=== PATIENT | female | born 1985 | race Caucasian/White ===

== ENCOUNTER 2019-03-21 14:27 | Outpatient (CLI) | payer OTHER, MEDICAID, SELFPAY ==
--- NOTE | ~2019-03-21 | US_ITS ---
EXAMINATION: US carotid duplex BI DATE: 03/21/2019 15:07 INDICATION: Transient right eye visual loss. TECHNIQUE: Grayscale, color Doppler, and pulsed Doppler images of the cervical carotid arteries were obtained. The degree of vessel stenosis is placed in one of the following categories: normal, <50%, 5 0-69%, >=70% but less than near-occlusion, near-occlusion, or total occlusion. Note that percent sten osis relative to normal distal artery lumen diameter is indirectly measured from velocity measurement s as described by Darrell, et al. Radiology 2003; 229:340-346. COMPARISON: None. FINDINGS: RIGHT: The right common carotid artery (CCA) peak systolic velocity (PSV) is 137 cm/s. The right internal ca rotid artery (ICA) PSV is 58 cm/s. The right ICA end-diastolic velocity (EDV) is 22 cm/s. The right I CA/CCA PSV ratio is 0.4. Grayscale and color Doppler images yield an estimate of 0% diameter reductio n from plaque in the ICA. There is antegrade flow in the right vertebral artery. LEFT: The left CCA PSV is 135 cm/s. The left ICA PSV is 87 cm/s. The left ICA EDV is 30 cm/s. The left ICA/ CCA PSV ratio is 0.6. Grayscale and color Doppler images yield an estimate of 0% diameter reduction f rom plaque in the ICA. There is antegrade flow in the left vertebral artery. IMPRESSION: 1. Normal internal carotid arteries. Reviewed, dictated and finalized at location A. TAL DIRECTOR
== END 2019-03-21 14:28 | disposition home or self-care (01) ==
LOC: ANHIMG 14:42
PROVIDERS: PCP Family Medicine
DX: H53.121 Transient visual loss, right eye (principal)
CPT/HCPCS: 93880

== ENCOUNTER 2019-04-01 08:46 | Outpatient (CLI) | payer OTHER, MEDICAID, SELFPAY ==
--- NOTE | ~2019-04-01 | DEXA_ITS ---
Bone Density Report Name: Sangeeta Mcknight Age: 33 Sex: Female Ethnicity: White Date of : 1985 Indication: postmenopausal; hysterectomy; Referring Provider: Simeon Keith Study: Bone densitometry was performed. Exam Date: April 01, 2019 Accession number: [id number] Bone Density: Region BMD T-score Z-score Classification AP Spine (L1-L4) 0.844 -1.8 -1.8 Osteopenia Femoral Neck (Left) 0.696 -1.4 -1.2 Osteopenia Total Hip (Left) 0.968 0.2 0.3 Normal Total Hip Bilateral Avg 0.976 0.3 0.4 Normal Femoral Neck (Right) 0.708 -1.3 -1.1 Osteopenia Total Hip (Right) 0.983 0.3 0.4 Normal World Health Organization criteria for BMD impression classify patients as: Normal (T-score at or above -1.0), Osteopenia (T-score between -1.0 and -2.5), or Osteoporosis (T-score at or below -2.5). 10-year Fracture Risk(1): Major Osteoporotic Fracture 2.1% Hip Fracture 0.2% Reported Risk Factors: [place] (), Neck BMD=0.696, BMI=25.4 Input outside FRAX(R) limits. Adjusted to:Age=40 (1) FRAX(R) Version 3.08. Fracture probability calculated for an untreated patient. Fracture probability may be lower if the patient has received treatment. Clinical Information Provided by Patient: Has used the following medications: HRT (i.e. estrogen/hormone therapy) Has the following medical conditions: Hysterectomy Menopause Age: 31 Onset of menses at age 9 Number of children 6 Impression: The patient has low bone mass, based on the Total Spine T-score. The patient has an estimated ten-year risk of hip fracture of 0.2% and an estimated ten-year risk of major fracture of 2.1%, based on the WHO FRAX algorithm. Discussion: BONE DENSITY IS LOW AT ONE OR MORE SKELETAL SITES. This patient's lowest T-score is low at one or more skeletal sites. It meets the World Health Organization's (WHO) criteria for ?low bone mass? (T-score between -1.0 and -2.5). The patient's 10-year risk of fracture as calculated by FRAX is less than the threshold where pharmacological therapy is recommended by the National Osteoporosis Foundation (NOF). However, all treatment decisions require clinical judgment and consideration of individual patient factors, including patient preferences, comorbidities, previous drug use, risk factors not captured in the FRAX model (e.g., frailty, falls, vitamin D deficiency, increased bone turnover, interval significant decline in bone density) and possible under or overestimation of fracture risk by FRAX. The patient should follow a healthful lifestyle (good nutrition with adequate calcium and vitamin D, and appropriate weight-bearing exercise). Follow-Up: Consider repeating this study in 2 to 3 years to reassess this patient's status, or sooner if there is some new clinical indication. Reported by: KASSIDY on 04/01/19
== END 2019-04-01 08:47 | disposition home or self-care (01) ==
LOC: ANHIMG 08:51
PROVIDERS: Visit Provider Obstetrics & Gynecology
DX: L89.40 Pressure ulcer of contiguous site of back, buttock and hip, unspecified stage (principal); M85.88 Other specified disorders of bone density and structure, other site; M85.852 Other specified disorders of bone density and structure, left thigh; M85.851 Other specified disorders of bone density and structure, right thigh
CPT/HCPCS: 77080

== ENCOUNTER 2019-04-11 09:10 | Outpatient (CLI) | payer OTHER, MEDICAID, SELFPAY ==
--- NOTE | 2019-04-11 10:11 | EST_ITS ---
Patient Info Name: Sangeeta Mcknight Age: 33 years : 1985 Gender: Female Ht: 60 in Wt: 127 lbs BSA: 1.57 m2 HR: 67 bpm BP: 105 / 66 mmHg Heart Rhythm: Sinus Rhythm Technical Quality: Good Exam Date: 04/11/2019 10:24 AM Exam Location: [facility] Stress Patient Status: Outpatient Admit Date: 04/11/2019 Staff Ordering Physician: John Leblanc DO Attending Provider: John Leblanc DO Exercise Technologist: Demetris Ibarra RDCS Exam Type: CA stress test treadmill Study Info Indications R07.9 - Chest pain, unspecified R06.02 - Shortness of breath A treadmill exercise stress test was performed. History/Risk Factors Chest pain, SOB, MVP. Summary 1. 1. Negative Jose Guadalupe exercise stress test for ischemic ST changes by ECG criteria.\E\. 2. 2. Good functional capacity, achieving 10 METs of workload. 3. 3. Appropriate HR response to exercise. 4. 4. Appropriate HR recovery at 1 minute post exercise. 5. 5. No imaging with stress tesing. 6. 6. Patient informed of the above results. Protocol: Jose [facility]adalupe Stress ECG Details Stage: REST Duration (min): 0 min : 16 sec Speed (mph): 0.0 Grade (%): 0 HR (bpm): 67 SBP (mmHg): --- DBP (mmHg): --- METS: --- Stage: REST Duration (min): 4 min : 58 sec Speed (mph): 0.0 Grade (%): 0 HR (bpm): 73 SBP (mmHg): 105 DBP (mmHg): 66 METS: --- Stage: STAGE 1 Duration (min): 1 min : 0 sec Speed (mph): 1.7 Grade (%): 10 HR (bpm): 106 SBP (mmHg): 105 DBP (mmHg): 66 METS: --- Stage: STAGE 1 Duration (min): 2 min : 0 sec Speed (mph): 1.7 Grade (%): 10 HR (bpm): 106 SBP (mmHg): 105 DBP (mmHg): 66 METS: --- Stage: STAGE 1 Duration (min): 3 min : 0 sec Speed (mph): 1.7 Grade (%): 10 HR (bpm): 117 SBP (mmHg): 139 DBP (mmHg): 48 METS: --- Stage: STAGE 2 Duration (min): 1 min : 0 sec Speed (mph): 2.5 Grade (%): 12 HR (bpm): 128 SBP (mmHg): 139 DBP (mmHg): 48 METS: --- Stage: STAGE 2 Duration (min): 2 min : 0 sec Speed (mph): 2.5 Grade (%): 12 HR (bpm): 141 SBP (mmHg): 147 DBP (mmHg): 47 METS: --- Stage: STAGE 2 Duration (min): 3 min : 0 sec Speed (mph): 2.5 Grade (%): 12 HR (bpm): 150 SBP (mmHg): 147 DBP (mmHg): 47 METS: --- Stage: STAGE 3 Duration (min): 1 min : 0 sec Speed (mph): 3.4 Grade (%): 14 HR (bpm): 168 SBP (mmHg): 157 DBP (mmHg): 54 METS: --- Stage: STAGE 3 Duration (min): 2 min : 0 sec Speed (mph): 3.4 Grade (%): 14 HR (bpm): 176 SBP (mmHg): 157 DBP (mmHg): 54 METS: --- Stage: STAGE 3 Duration (min): 2 min : 0 sec Speed (mph): 3.4 Grade (%): 14 HR (bpm): 176 SBP (mmHg): 157 DBP (mmHg): 54 METS: --- Stage: RECOVERY Duration (min): 0 min : 59 sec Speed (mph): 0.0 Grade (%): 0 HR (bpm): 145
== END 2019-04-11 09:11 | disposition home or self-care (01) ==
PROVIDERS: Visit Provider Internal Medicine Cardiovascular Disease
DX: R07.9 Chest pain, unspecified (principal)
CPT/HCPCS: 93017

== ENCOUNTER 2019-10-11 13:05 | Outpatient (CLI) | payer OTHER, MEDICAID, SELFPAY ==
--- NOTE | 2019-10-16 17:52 | SLEEP_ITS ---
Home Sleep Test DATE OF STUDY: 10/11/2019 ORDERING PHYSICIAN: John Leblanc D.O. REASON FOR THE STUDY: Hypersomnia. HISTORY: This patient is a 34-year-old woman, 5 feet tall, weighing 134 pounds with a body mass index of 26.1. She has a history of feeling tired and exhausted all day. She wakes up feeling tired. She has had an increase in headaches and migraines. She has had worsening mood with increased temper and decreased patience. She has increased forgetfulness. She is not sleeping through the night. She has tried amitriptyline 10 mg and it was increased to 25 mg. She has also tried essential oils and tea to help fall asleep. She has difficulty falling asleep, she wakes up frequently at night and has excessive daytime sleepiness. She also has difficulty waking up. She frequently snores and it is only occasionally loud enough that others complain about it. She rarely awakens at night with heartburn, belching, or coughing. She rarely awakens at night feeling short of breath. She frequently has trouble sleeping when she has a cold. She rarely wakes up gasping for breath at night. She occasionally has breathing problems at night observed by others. She frequently sweats excessively at night and frequently notices her heart pounding or beating irregularly at night. She does not fall asleep during the day or fall asleep involuntarily. She rarely falls asleep while driving. She does not fall asleep during physical effort. She does indicate that she rarely falls asleep with crying. She occasionally has loss of muscle tone with strong emotion. She frequently has daytime difficulty due to excessive sleepiness. 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 She indicates increased stress during the pandemic with the children being at home. She rarely feels paralyzed on waking or falling asleep. She frequently experiences vivid dreamlike scenes upon awakening or falling asleep. She is never afraid to go to sleep. She occasionally has nightmares, frequently remembers her dreams, frequently has racing thoughts. She occasionally feels sad, depressed, anxious, and occasionally has muscular tension. She frequently notices parts of her body jerking, frequently kicks at night. She occasionally has achy feelings in her legs, occasionally has leg pain at night and occasionally has morning jaw pain. She frequently grinds her teeth during sleep. She frequently is bothered by pain during the day. She occasionally is awakened by pain at night, frequently wakes up feeling stiff in the morning with sore achy muscles and pain in the neck and spine. She has headaches, dizziness, fatigue, panic, memory problems, concentration difficulties, and is unable to relax. She goes to bed between 09:00 and 11:00 p.m., taking 45 minutes to fall asleep, typically waking 3 times at night for 5 to 15 minutes. She tosses and turns, trying to find a comfortable position. She awakens in the morning at 07:00 a.m. Weekend schedule reveals that she may stay up an hour later, but wakes at the same time. She lives at home with her and 6 children, age 12 and under. She does not take naps. A short nap is not refreshing. She is drowsy in the morning for 3 hours or longer. She feels better in the evening. MEDICAL COMORBIDITIES: Mitral valve prolapse with palpitations, migraine headaches, osteopenia, menopause symptoms, gastroesophageal reflux disease. MEDICATIONS: 1. Metoprolol 25 mg a day. 2. Amitriptyline 25 mg at night. 3. Vitamin D3 2000 units daily. 4. Calcium 600 mg twice a day. 5. Vitamin B12 5000 mcg daily. 6. Omeprazole 40 mg twice a day. 7. Estradiol 2 mg daily. 8. Premarin 1.25 mg daily. HABITS: Quit tobacco 5 years ago. Caffeine, 2 to 3 servings a day. No alcohol or recreational
== END 2019-10-11 13:06 | disposition home or self-care (01) ==
LOC: ANHCSM 13:06
PROVIDERS: Visit Provider Internal Medicine Cardiovascular Disease
DX: G47.10 Hypersomnia, unspecified (principal)
CPT/HCPCS: 95806

== ENCOUNTER 2019-11-10 18:34 | Emergency (ER) | payer OTHER, MEDICAID, SELFPAY ==
--- NOTE | ~2019-11-10 | XR_ITS ---
EXAMINATION: XR foot LT min 3V DATE: 11/10/2019 18:53 INDICATION: Left foot pain. TECHNIQUE: 4 views of left foot were obtained. COMPARISON: Left foot radiographs 10/16/2018 FINDINGS: Bone alignment is normal. No fracture. 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 IMPRESSION: 1. No fracture. Reviewed, dictated and finalized at location A. IMPRESSION: 1. No fracture.
[2019-11-10 18:41] VITALS: BP 125/58; PULSE 76; RESP 16; TEMP 36.6; O2SAT 100
--- NOTE | 2019-11-10 18:45 | ED.LOWEXIN ---
HPI - Extremity Injury (Lower) General Chief Complaint: Extremity Injury, Lower Stated Complaint: left foot and ankle pain Time Seen by Provider: 11/10/19 18:45 Source: patient and RN notes reviewed History of Present Illness HPI Narrative: Patient is a 34-year-old female who presents to the urgent care with complaints of left foot/ankle and toe pain. Patient states that she fell on her floor Wednesday, and a water puddle. Patient states that she has been ambulating on the foot. States that she has been elevating, using ice and heat and taking ibuprofen and Tylenol as needed. Patient denies any other acute complaints or injuries from the fall. No acute distress noted. Patient aware of the plan of care. Some parts of this dictation were generated by voice recognition software and may contain typographical and/or grammatical inaccuracies. Related Data Home Medications Medication Instructions Recorded Confirmed cholecalciferol (vitamin D3) 50 50 mcg PO DAILY 07/05/19 07/05/19 mcg (2,000 unit) tablet estradiol 2 mg tablet 2 mg PO DAILY 07/05/19 07/05/19 omeprazole 40 mg capsule,delayed 40 mg PO BID 07/05/19 07/05/19 release amitriptyline 25 mg PO HS 11/10/19 11/10/19 conjugated estrogens [Premarin] 1.25 mg PO DAILY 11/10/19 11/10/19 metoprolol succinate 25 mg PO DAILY 11/10/19 11/10/19 Allergies Allergy/AdvReac Type Severity Reaction Status Date / Time vancomycin Allergy Severe REDMANS Verified 11/10/19 18:48 SYNDROME iodine Allergy Mild Hives / Verified 11/10/19 18:48 Red Face ioversol Allergy Unknown Unknown Verified 11/10/19 18:48 Penicillins Allergy Unknown Stopped Verified 11/10/19 18:48 Breathing iohexol Allergy Itching Verified 11/10/19 18:49 [From contrast - CT, X-RAY] acetaminophen AdvReac Mild STATES Verified 11/10/19 18:48 TYLENOL RAISES LIVER ENZYMES WAS TOLD NOT TO TAKE Review of Systems Review of Systems: Narrative: CONSTITUTIONAL: Denies fever, chills, or sweats. EYES: Denies visual changes, redness, or discharge. ENT: Denies rhinorrhea, congestion, sore throat, or otalgia. CARDIOVASCULAR: Denies chest pain, palpitations, or edema. RESPIRATORY: Denies cough or dyspnea. GASTROINTESTINAL: Denies abdominal pain, nausea, vomiting, or diarrhea. GENITOURINARY: Denies dysuria or hematuria. SKIN: Denies rash or itching. MUSCULOSKELETAL: Reports of left foot, ankle and toe pain due to fall NEUROLOGIC: Denies headache, numbness, or weakness. All other systems reviewed are negative, except as documented in HPI. [facility] Past Medical History Medical History (Updated 11/10/19 @ 19:10 by DIPTI Nino) Heart palpitations Mitral valve prolapse Family History Family History (System 07/03/19 @ 13:04 by Linda Varela) Father Family history of mental disorder Depression Family history of kidney disease Family history of human immunodeficiency virus infection Mother Family history of alcoholism Social History Social History (System 07/03/19 @ 13:04 by Linda Varela) Smoking status: Former smoker Alcohol intake: current Comments At the time of my signature, I reviewed and agree with the nursing past medical, surgical, social, and family history. There is no relevant family history pertinent to the patient complaint. Exam Narrative: Exam Narrative: GENERAL: This is a well-nourished, well-developed patient, in no apparent distress. HEAD: normocephalic, atraumatic. EYES: PERRL. Sclera clear/white. Vision is grossly intact. EARS: External ears normal NOSE: External nose normal with no obvious nasal discharge, nares without redness, no rhinorrhea. THROAT: Mucous membranes moist NECK: Neck supple, SKIN: warm, intact with no suspicious lesions or rash, good texture and turgor. NEURO: awake, alert, and oriented to person, place and time. There were no obvious focal neurologic abnormalities. EXTREMITIES: No obviou
--- NOTE | 2019-11-10 19:10 | PC.NURSE ---
PT DECLINED WHEELCHAIR TO ROOM AND RADIOLOGY
== END 2019-11-10 19:12 | disposition home or self-care (01) ==
PROVIDERS: Emergency Provider Nurse Practitioner Family
DX: M79.672 Pain in left foot (principal); I34.1 Nonrheumatic mitral (valve) prolapse
CPT/HCPCS: 73630; 99213; G0463

== ENCOUNTER 2020-02-06 02:40 | Outpatient (CLI) | payer OTHER, MEDICAID, SELFPAY ==
[2020-02-06 22:42] LABS: SARS-CoV-2 RNA PCR Negative
== END 2020-02-06 02:41 | disposition home or self-care (01) ==
LOC: ANHCOVIDDT 02:40
PROVIDERS: Visit Provider Internal Medicine Critical Care Medicine
DX: Z20.828 Contact with and (suspected) exposure to other viral communicable diseases (principal)
CPT/HCPCS: 87635; C9803; U0003

== ENCOUNTER 2020-02-08 08:27 | Outpatient (CLI) | payer OTHER, MEDICAID, SELFPAY ==
--- NOTE | 2020-03-29 15:57 | WPDSLEEPSTUD ---
Sleep Study Date of Study: 02/08/20 Ordering Provider: Vahid Yoder MD Interpreting Physician: Alicia Avendano MD Sleep Study Type: Polysomnogram Height: 1.52 m Weight: 60.781 kg Body Mass Index: 26.2 Neck Circumference: 30.5 cm [place]: 10 Reason for Sleep Study fatigue and hypersomnolence, negative home sleep test Oct 16, 2019 with AHI 0.7, lowest sat 91% Sleep History Sangeeta Mcknight is a 34 year old female with a history of feeling tired and exhausted all day. She wakes up feeling tired. She has had an increase in headaches and migraines. She has had worsening mood with increased temper and decreased patience. She has increased forgetfulness. She is not sleeping through the night. She has tried amitriptyline 10 mg and it was increased to 25 mg. She has also tried essential oils and tea to help fall asleep. She has difficulty falling asleep, she wakes up frequently at night and has excessive daytime sleepiness. She also has difficulty waking up. She frequently snores and it is only occasionally loud enough that others complain about it. She rarely awakens at night with heartburn, belching, or coughing. She rarely awakens at night feeling short of breath. She frequently has trouble sleeping when she has a cold. She rarely wakes up gasping for breath at night. She occasionally has breathing problems at night observed by others. She frequently sweats excessively at night and frequently notices her heart pounding or beating irregularly at night. She does not fall asleep during the day or fall asleep involuntarily. She rarely falls asleep while driving. She does not fall asleep during physical effort. She does indicate that she rarely falls asleep with crying. She occasionally has loss of muscle tone with strong emotion. She frequently has daytime difficulty due to excessive sleepiness. 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 She indicates increased stress during the pandemic with the children being at home. She rarely feels paralyzed on waking or falling asleep. She frequently experiences vivid dreamlike scenes upon awakening or falling asleep. She is never afraid to go to sleep. She occasionally has nightmares, frequently remembers her dreams, frequently has racing thoughts. She occasionally feels sad, depressed, anxious, and occasionally has muscular tension. She frequently notices parts of her body jerking, frequently kicks at night. She occasionally has achy feelings in her legs, occasionally has leg pain at night and occasionally has morning jaw pain. She frequently grinds her teeth during sleep. She frequently is bothered by pain during the day. She occasionally is awakened by pain at night, frequently wakes up feeling stiff in the morning with sore achy muscles and pain in the neck and spine. She has headaches, dizziness, fatigue, panic, memory problems, concentration difficulties, and is unable to relax. She goes to bed between 9:00 and 11:00 p.m., taking 45 minutes to fall asleep, typically waking 3 times at night for 5 to 15 minutes. She tosses and turns, trying to find a comfortable position. She awakens in the morning at 7:00 a.m. not feeling refreshed. Weekend schedule reveals that she may stay up an hour later, but wakes at the same time. She lives at home with her and 6 children, age 12 and under. She does not take naps. A short nap is not refreshing. She is drowsy in the morning for 3 hours or longer. She feels better in the evening. HABITS: Quit tobacco 5 years ago. Caffeine, 2 to 3 servings a day. No alcohol or recreational drugs. PMH: Mitral valve prolapse with palpitations, migraine headaches, osteopenia, menopause symptoms, gastroesophageal reflux disease. [facility] Past Medical History Medical History (Updated 03/29/20 @ 16:39 by Alicia Avendano MD) Heart palpitations Hypersomnia Mitral valve prolapse Family History Family History Father
[2020-03-29 16:57] VITALS: BMI 26.2
== END 2020-02-08 08:28 | disposition home or self-care (01) ==
LOC: ANHCSM 08:27
PROVIDERS: Visit Provider Internal Medicine Critical Care Medicine
DX: G47.00 Insomnia, unspecified (principal); G47.10 Hypersomnia, unspecified; G25.81 Restless legs syndrome
CPT/HCPCS: 95810

== ENCOUNTER 2020-02-14 08:33 | Outpatient (CLI) | payer OTHER, MEDICAID, SELFPAY ==
--- NOTE | 2020-02-14 08:42 | ECHO_ITS ---
Patient Info Name: Sangeeta Mcknight Age: 34 years : 1985 Gender: Female Ht: 60 in Wt: 136 lbs BSA: 1.63 m2 HR: 63 bpm BP: 106 / 71 mmHg Technical Quality: Good Exam Date: 02/14/2020 9:09 AM Exam Location: [facility] Patient Status: Outpatient Admit Date: 02/14/2020 Staff Ordering Physician: John Leblanc DO Heritage Consultant: Brenda Kapadia RDCS Attending Provider: John Leblanc DO Referring Physician: Benji AYALA; Exam Type: CA echo doppler color flow Study Info Indications - nonrheumatic mitral valve prolaspe Complete two-dimensional, color flow and Doppler transthoracic echocardiogram is performed. Summary 1. Complete two-dimensional, color flow and Doppler transthoracic echocardiogram is performed. 2. Left ventricular chamber dimension is normal. 3. Left ventricular systolic function is normal, estimated at 60-65%. 4. The left ventricular diastolic function is normal. 5. E/e' 6 is not elevated. 6. Left atrial chamber dimension is mildly enlarged. 7. The mitral valve has moderate bileaflet prolapse. 8. There is moderate mitral valve regurgitation. 9. There is trace tricuspid valve regurgitation. 10. No pulmonary hypertension, estimated pulmonary arterial systolic pressure is 27 mmHg. 11. There is trace pulmonic regurgitation. Left Ventricle E/e' 6 is not elevated. Left ventricular chamber dimension is normal. Left ventricular systolic function is normal, estimated at 60-65%. The left ventricular diastolic function is normal. Right Ventricle Right ventricular chamber dimension is normal. Right ventricular systolic function is normal. Left Atria Left atrial chamber dimension is mildly enlarged. Right Atria Right atrial chamber dimension is normal. Aortic Valve The aortic valve is trileaflet. There is no aortic valve stenosis. There is no aortic valve regurgitation. Pulmonic Valve There is trace pulmonic regurgitation. Mitral Valve The mitral valve has moderate bileaflet prolapse. There is no mitral valve stenosis. There is moderate mitral valve regurgitation. Tricuspid Valve There is trace tricuspid valve regurgitation. No pulmonary hypertension, estimated pulmonary arterial systolic pressure is 27 mmHg. Pericardium/Pleural There is no pericardial effusion. Inferior Vena Cava Normal inferior vena cava with >50% collapse upon inspiration consistent with normal right atrial pressure, 5 mmHg. Aorta The aortic root size at the sinus of Valsalva is normal. Left Ventricular Outflow Tract Name Value Normal LVOT 2D LVOT Diameter 2.0 cm LVOT Doppler LVOT Peak Gradient 4 mmHg LVOT Mean Gradient 2 mmHg LVOT VTI 18 cm LVOT VTI/AV VTI Ratio 1.1 LVOT Stroke Volume 54 ml LVOT CO 12.9 l/min LVOT CI 7.9 l/min/m2 Pulmonic Valve Name Value
== END 2020-02-14 08:34 | disposition home or self-care (01) ==
LOC: ANHCARD 08:34
PROVIDERS: Visit Provider Internal Medicine Cardiovascular Disease
DX: I34.1 Nonrheumatic mitral (valve) prolapse (principal)
CPT/HCPCS: 93306

== ENCOUNTER 2020-05-01 14:38 | Outpatient (CLI) | payer OTHER, MEDICAID, SELFPAY ==
--- NOTE | 2020-05-01 14:51 | ECHO_ITS ---
Patient Info Name: Sangeeta Mcknight Age: 35 years : 1985 Gender: Female Ht: 60 in Wt: 133 lbs BSA: 1.61 m2 HR: 62 bpm BP: 88 / 58 mmHg Technical Quality: Good Exam Date: 05/01/2020 3:16 PM Exam Location: [facility] Patient Status: Outpatient Admit Date: 05/01/2020 Staff Ordering Physician: John Leblanc DO On Awake Counselor: Brenda Kapadia RDCS Attending Provider: John Leblanc DO Referring Physician: Benji AYALA; Exam Type: CA echo doppler color flow Study Info Indications - NONRHEUMATIC MITRAL VALVE PROLASPE Complete two-dimensional, color flow and Doppler transthoracic echocardiogram is performed. Summary 1. Complete two-dimensional, color flow and Doppler transthoracic echocardiogram is performed. 2. Left ventricular chamber dimension is mildly enlarged. 3. Left ventricular systolic function is normal, estimated at 65-70%. 4. The left ventricular diastolic function is normal. 5. E/e' 6 is not elevated. 6. Left atrial chamber dimension is moderately enlarged. 7. Atrial septal aneurysm with bowing to right atrium without interatrial shunt by color doppler. 8. The mitral valve has mild bileaflet prolapse. 9. There is mild-moderate mitral valve regurgitation. 10. There is trace tricuspid valve regurgitation. 11. No pulmonary hypertension, estimated pulmonary arterial systolic pressure is 21 mmHg. 12. There is trace pulmonic regurgitation. Left Ventricle E/e' 6 is not elevated. Left ventricular chamber dimension is mildly enlarged. Left ventricular systolic function is normal, estimated at 65-70%. The left ventricular diastolic function is normal. Right Ventricle Right ventricular chamber dimension is normal. Right ventricular systolic function is normal. Left Atria Left atrial chamber dimension is moderately enlarged. Right Atria Right atrial chamber dimension is normal. Atrial Septum Atrial septal aneurysm with bowing to right atrium without interatrial shunt by color doppler. Aortic Valve The aortic valve is trileaflet. There is no aortic valve stenosis. There is no aortic valve regurgitation. Pulmonic Valve There is trace pulmonic regurgitation. Mitral Valve The mitral valve has mild bileaflet prolapse. There is mild-moderate mitral valve regurgitation. There is no mitral valve stenosis. Tricuspid Valve There is trace tricuspid valve regurgitation. No pulmonary hypertension, estimated pulmonary arterial systolic pressure is 21 mmHg. Pericardium/Pleural There is no pericardial effusion. Inferior Vena Cava Normal inferior vena cava with >50% collapse upon inspiration consistent with normal right atrial pressure, 5 mmHg. Aorta The aortic root size at the sinus of Valsalva is normal. Left Ventricular Outflow Tract Name Value Normal LVOT 2D LVOT Diameter 2.0 cm LVOT Doppler LVOT Peak Gradient 5 mmHg LVOT Mean Gradient 3 mmHg LVOT VTI 21 cm LVOT VTI/AV VTI Ratio 1.0 LVOT Stroke Volume 65 ml
== END 2020-05-01 14:39 | disposition home or self-care (01) ==
LOC: ANHCARD 14:40
PROVIDERS: Visit Provider Internal Medicine Cardiovascular Disease
DX: I34.1 Nonrheumatic mitral (valve) prolapse (principal); I51.7 Cardiomegaly
CPT/HCPCS: 93306

== ENCOUNTER 2020-06-15 11:29 | Outpatient (CLI) | payer OTHER, MEDICAID, SELFPAY | END 2020-06-15 11:30 | disposition home or self-care (01) | PROVIDERS: Visit Provider Internal Medicine Critical Care Medicine | DX: G47.00 Insomnia, unspecified (principal) | CPT/HCPCS: 36415; 82728 ==

== ENCOUNTER 2021-03-14 09:36 | Outpatient (CLI) | payer OTHER, MEDICAID, SELFPAY ==
--- NOTE | 2021-03-14 09:59 | ECHO_ITS ---
Patient Info Name: Sangeeta Mcknight Age: 35 years : 1985 Gender: Female Ht: 60 in Wt: 126 lbs BSA: 1.57 m2 HR: 73 bpm BP: 106 / 58 mmHg Technical Quality: Good Exam Date: 03/14/2021 10:12 AM Exam Location: [facility] Patient Status: Outpatient Admit Date: 03/14/2021 Staff Ordering Physician: John Leblanc DO Service Department Manager: Allie Astudillo RDCS Attending Provider: John Leblanc DO Referring Physician: Benji AYALA; Exam Type: CA echo doppler color flow Study Info Indications I34.1 - Nonrheumatic mitral (valve) prolapse Complete two-dimensional, color flow and Doppler transthoracic echocardiogram is performed. Summary 1. Complete two-dimensional, color flow and Doppler transthoracic echocardiogram is performed. 2. Left ventricular chamber dimension is normal. 3. Left ventricular systolic function is normal, estimated at 60-65%. 4. The left ventricular diastolic function is normal. 5. E/e' is not elevated. 6. Left atrial chamber dimension is moderately enlarged. 7. Bowing of the interatrial septum to the right without shunt by 2D and color flow imaging. 8. The mitral valve has mildly thickened leaflets and moderately bileaflet prolapse. 9. There is moderate mitral valve regurgitation. 10. There is trace tricuspid valve regurgitation. 11. No pulmonary hypertension, estimated pulmonary arterial systolic pressure is 34 mmHg. 12. There is trace pulmonic regurgitation. Left Ventricle E/e' is not elevated. Left ventricular chamber dimension is normal. Left ventricular systolic function is normal, estimated at 60-65%. The left ventricular diastolic function is normal. Right Ventricle Right ventricular chamber dimension is normal. Right ventricular systolic function is normal. Left Atria Left atrial chamber dimension is moderately enlarged. Right Atria Right atrial chamber dimension is normal. Atrial Septum Bowing of the interatrial septum to the right without shunt by 2D and color flow imaging. Aortic Valve The aortic valve is trileaflet. There is no aortic valve stenosis. There is no aortic valve regurgitation. Pulmonic Valve There is trace pulmonic regurgitation. Mitral Valve The mitral valve has mildly thickened leaflets and moderately bileaflet prolapse. There is no mitral valve stenosis. There is moderate mitral valve regurgitation. Tricuspid Valve There is trace tricuspid valve regurgitation. No pulmonary hypertension, estimated pulmonary arterial systolic pressure is 34 mmHg. Pericardium/Pleural There is no pericardial effusion. Inferior Vena Cava Normal inferior vena cava with >50% collapse upon inspiration consistent with normal right atrial pressure, 5 mmHg. Aorta The aortic root size at the sinus of Valsalva is normal. Left Ventricular Outflow Tract Name Value Normal LVOT 2D LVOT Diameter 2.0 cm LVOT Doppler LVOT Peak Gradient 5 mmHg LVOT Mean Gradient 2 mmHg LVOT VTI 18 cm LVOT VTI/AV VTI Ratio 0.9 LVOT Riki
== END 2021-03-14 09:37 | disposition home or self-care (01) ==
PROVIDERS: Visit Provider Internal Medicine Cardiovascular Disease
DX: I34.1 Nonrheumatic mitral (valve) prolapse (principal); I34.0 Nonrheumatic mitral (valve) insufficiency
CPT/HCPCS: 93306

== ENCOUNTER 2021-05-02 14:17 | Outpatient (CLI) | payer BC, MEDICAID, SELFPAY ==
--- NOTE | ~2021-05-02 | DEXA_ITS ---
Bone Density Report Name: VICKI HOUSE Age: 36 Sex: Female Ethnicity: White Date of : 1985 Indication: osteopenia; hysterectomy; postmenopausal Referring Provider: Denisha, Camila Zuniga Study: Bone densitometry was performed. Exam Date: May 02, 2021 Accession number: [id number] Bone Density: Region BMD T-score Z-score Classification AP Spine (L1-L4) 0.855 -1.7 -1.7 Osteopenia Femoral Neck (Left) 0.755 -0.8 -0.7 Normal Total Hip (Left) 0.926 -0.1 0.0 Normal Total Hip Bilateral Avg 0.922 -0.2 -0.1 Normal Femoral Neck (Right) 0.727 -1.1 -0.9 Osteopenia Total Hip (Right) 0.917 -0.2 -0.1 Normal World Health Organization criteria for BMD impression classify patients as: Normal (T-score at or above -1.0), Osteopenia (T-score between -1.0 and -2.5), or Osteoporosis (T-score at or below -2.5). 10-year Fracture Risk(1): Major Osteoporotic Fracture 2.0% Hip Fracture 0.1% Reported Risk Factors: [place] (), Neck BMD=0.727, BMI=25.6 Input outside FRAX(R) limits. Adjusted to:Age=40 (1) FRAX(R) Version 3.08. Fracture probability calculated for an untreated patient. Fracture probability may be lower if the patient has received treatment. Previous Exams: Region Exam Age BMD T-score BMD Change BMD Change Date g/cm2 vs Baseline vs Previous AP Spine(L1-L4) 05/02/2021 36 0.855 -1.7 0.011(1.2%)# 0.011(1.2%)# 04/01/2019 33 0.844 -1.8 Total Hip(Left) 05/02/2021 36 0.926 -0.1 -0.043(-4.4%)# -0.043(-4.4%)# 04/01/2019 33 0.968 0.2 Total Hip(Right) 05/02/2021 36 0.917 -0.2 -0.065(-6.6%)# -0.065(-6.6%)# 04/01/2019 33 0.983 0.3 *Denotes significance at 95% confidence level, LSC for AP Spine = 0.022 g/cm2, LSC for Total Hip = 0.027 g/cm2 Clinical Information Provided by Patient: Has used the following medications: HRT (i.e. estrogen/hormone therapy) Has the following medical conditions: Hysterectomy Patient maximum height was 60 Menopause Age: 31 No regular weight bearing exercise Does not regularly consume dairy products Drinks caffeinated beverages Onset of menses at age 9 Number of children 6 Impression: The patient has low bone mass, based on the Total Spine T-score. The patient has an estimated ten-year risk of hip fracture of 0.1% and an estimated ten-year risk of major fracture of 2%, based on the WHO FRAX algorithm. No significant bone loss was observed. Discussion: BONE DENSITY IS LOW AT ONE OR MORE SKE
--- NOTE | ~2021-05-02 | MMUS_ITS ---
EXAMINATION: MM diagnostic zaki BI w fifi, US breast BI limited HISTORY: Palpable bilateral breast abnormalities. TECHNIQUE: Additional 3-D tomosynthesis images of the breasts were performed and synthetic 2-D images were generated. CAD analysis was submitted and interpreted. High resolution limited bilateral breast ultrasound was performed. COMPARISON: None BREAST PARENCHYMAL COMPOSITION: The breasts are heterogenously dense, which may obscure small masses FINDINGS: MAMMOGRAPHIC FINDINGS: There are no suspicious masses, calcifications or architectural distortion in either breast to sugges t malignancy. ULTRASOUND: Limited bilateral breast ultrasound: Normal heterogeneous echotexture without focal mass. No findings are identified in the area of palpable concern in either breast. IMPRESSION: 1. No evidence for malignancy in either breast. 2. Routine yearly screening mammogram and regular clinical breast examination are recommended. BI-RADS Category 1: Negative Reviewed, dictated and finalized at location A. [employer] IMPRESSION: 1. No evidence for malignancy in either breast. 2. Routine yearly screening mammogram and regular clinical breast examination a re recommended. BI-RADS Category 1: Negative
== END 2021-05-02 14:18 | disposition home or self-care (01) ==
LOC: ANHIMG 14:19
PROVIDERS: Visit Provider Nurse Practitioner Obstetrics & Gynecology
DX: N64.4 Mastodynia (principal); Z78.0 Asymptomatic menopausal state; M85.88 Other specified disorders of bone density and structure, other site
CPT/HCPCS: 76642; 77062; 77066; 77080; G0279

== ENCOUNTER 2021-05-07 17:14 | Emergency (ER) | payer BC, MEDICAID, SELFPAY ==
--- NOTE | ~2021-05-07 | XR_ITS ---
XR chest 2V DATE: 05/07/2021 17:25 INDICATION: Chest pain TECHNIQUE: PA and lateral views COMPARISON: 03/05/2012 PA and lateral chest FINDINGS: Normal heart size. No hilar or mediastinal enlargement. The lungs are clear of infiltrate o r consolidation. No pleural effusion or pulmonary vascular congestion or pneumothorax. IMPRESSION: No active cardiopulmonary disease Reviewed, dictated and finalized at location A.
--- NOTE | 2021-05-07 17:16 | ECG_ITS ---
Measurements Intervals [place] Rate: 95 P: 69 MS: 120 QRS: 70 QRSD: 82 T: 23 QT: 332 QTc: 418 Interpretive Statements SINUS RHYTHM NONSPECIFIC ST & T-WAVE ABNORMALITY NO PREVIOUS ECG AVAILABLE FOR COMPARISON Electronically Signed On 05-07-2021 20:29:36 CDT by Mel Chester M.D.
[2021-05-07 17:29] LABS: Basophils Absolute Auto 0.1 K/mm3 (0.0-0.1); Basophils Percent Auto 0.9 % (0.2-1.2); Eosinophils Absolute Auto 0.2 K/mm3 (0-0.3); Eosinophils Percent Auto 2.2 % (0-4.4); Hematocrit 42.5 % (37.0-47.0); Hemoglobin 14.4 g/dL (12.0-15.0); Immature Granulocyte Absolute 0.02 K/mm3 (0.00-0.031); Immature Granulocyte Percent A 0.2 % (0-0.5); Lymphocytes Absolute Auto 1.88 K/mm3 (0.9-3.2); Lymphocytes Percent Auto 23.1 % (18.3-44.2); Mean Corpuscular HGB Conc 33.9 g/dl (32-36); Mean Corpuscular Hemoglobin 30.6 pg (26-34); Mean Corpuscular Volume 90.2 fl (80-100); Mean Platelet Volume 9.5 fl (7.4-10.4); Monocytes Absolute Auto 0.7 K/mm3 (0.1-0.6); Monocytes Percent Auto 8.2 % (2.6-8.5); Neutrophils Absolute Auto 5.3 K/mm3 (1.3-6.7); Neutrophils Percent Auto 65.4 % (45.5-73.1); Platelet Count Result 247 k/mm3 (150-375); Red Blood Count 4.71 M/mm3 (4.2-5.4); Red Cell Distribution Width 12.3 % (11.5-14.5); White Blood Count 8.2 K/mm3 (4.5-10.0)
[2021-05-07 17:38] LABS: Prothrombin Time 12.4 Seconds (11.1-14.7)
[2021-05-07 17:39] LABS: Partial Thromboplastin Time 29.8 SECONDS (22.3-36.8)
[2021-05-07 17:41] LABS: Alanine Aminotransferase 24 U/L (4-35); Albumin Level 4.6 g/dL (3.5-5.1); Alkaline Phosphatase 51 U/L (38-126); Anion Gap 8 mmol/L (8-16); Aspartate Amino Transferase 33 U/L (14-36); Bilirubin,Total 0.4 mg/dL (0.2-1.3); Blood Urea Nitrogen 14 mg/dL (7-17); Calcium 8.9 mg/dL (8.4-10.2); Carbon Dioxide 29 mmol/L (22-30); Chloride 103 mmol/L (98-107); Estimated Glomerular Filt Rate > 60; Glucose 122 mg/dL (65-110); Lipase 49 U/L (23-300); Potassium 3.7 mmol/L (3.4-5.0); Sodium 140 mmol/L (137-145)
[2021-05-07 17:44] VITALS: BP 114/52; PULSE 91; RESP 12; TEMP 36.6; O2SAT 100
[2021-05-07 17:53] LABS: Troponin I < 0.012 ng/mL (0.000-0.034)
--- NOTE | 2021-05-07 20:02 | PC.NURSE ---
Pt leaves ED prior to being seen by physician at this time. Ambulatory with steady gait, no sign of distress.
== END 2021-05-07 20:15 | disposition left against medical advice (07) ==
LOC: ANHED 20:13
PROVIDERS: Emergency Provider Family Medicine
DX: R07.9 Chest pain, unspecified (principal)
CPT/HCPCS: 36415; 71046; 80053; 83690; 84484; 85025; 85610; 85730; 93005; 99199

== ENCOUNTER 2021-06-13 17:29 | Emergency (ER) | payer BC, OTHER, SELFPAY ==
--- NOTE | ~2021-06-13 | XR_ITS ---
EXAMINATION: XR forearm RT 2V INDICATION: Right forearm pain TECHNIQUE: Two views of the right forearm are obtained. COMPARISON: None available FINDINGS: There is no fracture, dislocation, or subluxation. The bones, soft tissues, and joint space s are normal. IMPRESSION: 1. No acute osseous abnormality. Reviewed, dictated and finalized at location F.
[2021-06-13 17:36] VITALS: BP 104/57; PULSE 65; RESP 16; TEMP 37.1; O2SAT 100
--- NOTE | 2021-06-13 17:36 | ED.UPPEXIN ---
HPI - Extremity Injury (Upper) General Chief Complaint: Extremity Injury, Upper Stated Complaint: right arm injury Time Seen by Provider: 06/13/21 17:36 Source: patient and RN notes reviewed History of Present Illness HPI narrative: Patient is a 36-year-old female who presents the urgent care with complaints of right arm pain. Patient states that she fell while walking with her this morning onto her right arm. Patient did take Excedrin due to headache and pain. No other acute complaints. Denies any loss of consciousness or hitting her head. No acute distress noted. Patient aware of the plan of care. Some parts of this dictation were generated by voice recognition software and may contain typographical and/or grammatical inaccuracies. Related Data Home Medications Medication Instructions Recorded Confirmed estradiol 0.1 mg/24 hr semiweekly 1 patch TRANSDERMAL 2XW 03/19/21 03/19/21 transdermal patch propranolol 10 mg PO BID 06/13/21 06/13/21 Allergies Allergy/AdvReac Type Severity Reaction Status Date / Time vancomycin Allergy Severe REDMANS Verified 06/13/21 17:38 SYNDROME iodine Allergy Mild Hives / Verified 06/13/21 17:38 Red Face ioversol Allergy Unknown Unknown Verified 06/13/21 17:38 Penicillins Allergy Unknown Stopped Verified 06/13/21 17:38 Breathing iohexol Allergy Itching Verified 06/13/21 17:38 [From contrast - CT, X-RAY] acetaminophen AdvReac Mild STATES Verified 06/13/21 17:38 TYLENOL RAISES LIVER ENZYMES WAS TOLD NOT TO TAKE Review of Systems Review of Systems: CONSTITUTIONAL: Denies fever, chills, or sweats. EYES: Denies visual changes, redness, or discharge. ENT: Denies rhinorrhea, congestion, sore throat, or otalgia. CARDIOVASCULAR: Denies chest pain, palpitations, or edema. RESPIRATORY: Denies cough or dyspnea. GASTROINTESTINAL: Denies abdominal pain, nausea, vomiting, or diarrhea. GENITOURINARY: Denies dysuria or hematuria. SKIN: Denies rash or itching. MUSCULOSKELETAL: Reports of right arm pain NEUROLOGIC: Denies headache, numbness, or weakness. All other systems reviewed are negative, except as documented in HPI. [facility] Past Medical History Medical History Heart palpitations Hypersomnia Mitral valve prolapse Family History Family History Father Family history of mental disorder Depression Family history of kidney disease Family history of human immunodeficiency virus infection Mother Family history of alcoholism Social History Social History Smoking packs per day: 1.5 Smoking cigarettes per day: 30.0 Years smoked: 14 Smoking pack-years: 21.00 Smoking status: Never smoker Alcohol intake: current Comments At the time of my signature, I reviewed and agree with the nursing past medical, surgical, social, and family history. There is no relevant family history pertinent to the patient complaint. Exam Narrative: GENERAL: This is a well-nourished, well-developed patient, in no apparent distress. HEAD: normocephalic, atraumatic. EYES: PERRL. Sclera clear/white. Vision is grossly intact. EARS: External ears normal NOSE: External nose normal with no obvious nasal discharge, nares without redness, no rhinorrhea. THROAT: Mucous membranes moist NECK: Neck supple CARDIOVASCULAR: Regular rate and rhythm without murmurs, gallops, or rubs. RESPIRATORY: Clear to auscultation. Breath sounds equal bilaterally. No wheezes, rales, or rhonchi. SKIN: warm, intact with no suspicious lesions or rash, good texture and turgor. NEURO: awake, alert, and oriented to person, place and time. There were no obvious focal neurologic abnormalities. EXTREMITIES: Range of motion of right upper extremity within normal limits. No exacerbated pain on rotation. Pos
[2021-06-13 17:41] VITALS: BP 104/57; PULSE 65; RESP 16; TEMP 37.1; O2SAT 100
== END 2021-06-13 18:25 | disposition home or self-care (01) ==
PROVIDERS: Emergency Provider Nurse Practitioner Family
DX: M79.631 Pain in right forearm (principal); F17.210 Nicotine dependence, cigarettes, uncomplicated; I34.1 Nonrheumatic mitral (valve) prolapse
CPT/HCPCS: 73090; 99213; G0463

== ENCOUNTER 2021-08-02 12:38 | Emergency (ER) | payer BC, OTHER, SELFPAY ==
--- NOTE | 2021-08-02 12:43 | ED.URI ---
HPI - URI/Sore Throat General Chief Complaint: Upper Respiratory Infection Stated Complaint: sore throat,cough Time Seen by Provider: 08/02/21 12:43 Source: patient and RN notes reviewed History of Present Illness HPI Narrative: Patient is a 36-year-old female who presents the urgent care with complaints of a sore throat and cough. Patient states is been ongoing for 2 weeks and seems to be worse at bedtime and when she wakes up. Patient states she now has pain radiating to the right ear. Patient has been taking ibuprofen as needed. Denies any other upper respiratory complaints, nausea, vomiting, fever. Patient denies of any ill exposures but states that her and daughter have both had the same symptoms off and on for the last couple weeks. Patient has taken several at home COVID test which have all been negative. No other acute complaints. No acute distress noted. Patient aware of the plan of care. Some parts of this dictation were generated by voice recognition software and may contain typographical and/or grammatical inaccuracies. Related Data Home Medications Medication Instructions Recorded Confirmed estradiol 0.1 mg/24 hr semiweekly 1 patch transdermal 2XW 03/19/21 06/13/21 transdermal patch metoprolol succinate 25 mg 25 mg PO DAILY 08/02/21 08/02/21 tablet,extended release 24 hr omeprazole 40 mg capsule,delayed 1 cap PO BID 08/02/21 08/02/21 release Allergies Allergy/AdvReac Type Severity Reaction Status Date / Time vancomycin Allergy Severe REDMANS Verified 08/02/21 13:05 SYNDROME iodine Allergy Mild Hives / Verified 08/02/21 13:05 Red Face ioversol Allergy Unknown Unknown Verified 08/02/21 13:05 Penicillins Allergy Unknown Stopped Verified 08/02/21 13:05 Breathing iohexol Allergy Itching Verified 08/02/21 13:05 [From contrast - CT, X-RAY] acetaminophen AdvReac Mild STATES Verified 08/02/21 13:05 TYLENOL RAISES LIVER ENZYMES WAS TOLD NOT TO TAKE Review of Systems Review of Systems: CONSTITUTIONAL: Denies fever, chills, or sweats. EYES: Denies visual changes, redness, or discharge. ENT: Denies rhinorrhea, congestion. Reports of sore throat radiating to the right ear CARDIOVASCULAR: Denies chest pain, palpitations, or edema. RESPIRATORY: Reports a mild cough without dyspnea GASTROINTESTINAL: Denies abdominal pain, nausea, vomiting, or diarrhea. GENITOURINARY: Denies dysuria or hematuria. SKIN: Denies rash or itching. MUSCULOSKELETAL: Denies back pain, joint pain, or myalgia. NEUROLOGIC: Denies headache, numbness, or weakness. All other systems reviewed are negative, except as documented in HPI. [facility] Past Medical History Medical History Heart palpitations Hypersomnia Mitral valve prolapse Family History Family History Father Family history of mental disorder Depression Family history of kidney disease Family history of human immunodeficiency virus infection Mother Family history of alcoholism Social History Social History Smoking packs per day: 1.5 Smoking cigarettes per day: 30.0 Years smoked: 14 Smoking pack-years: 21.00 Smoking status: Never smoker Alcohol intake: current Comments At the time of my signature, I reviewed and agree with the nursing past medical, surgical, social, and family history. There is no relevant family history pertinent to the patient complaint. Exam Narrative: GENERAL: This is a well-nourished, well-developed patient, in no apparent distress. HEAD: normocephalic, atraumatic. EYES: PERRL. Sclera clear/white. Vision is grossly intact. EARS: External ears normal, auditory canals clear and without drainage, TMs normal without perforation. Hearing grossly intact. NOSE: External nose normal with no obvious nasal
[2021-08-02 12:44] VITALS: BP 109/51; PULSE 68; RESP 16; TEMP 36.9; O2SAT 99
== END 2021-08-02 13:20 | disposition home or self-care (01) ==
PROVIDERS: Emergency Provider Nurse Practitioner Family
DX: J02.9 Acute pharyngitis, unspecified (principal); F17.210 Nicotine dependence, cigarettes, uncomplicated; I34.1 Nonrheumatic mitral (valve) prolapse
CPT/HCPCS: 87081; 87880; 99213; G0463

== ENCOUNTER 2021-08-11 17:09 | Emergency (ER) | payer BC, OTHER, SELFPAY ==
--- NOTE | ~2021-08-11 | CT_ITS ---
EXAMINATION: CT abdomen pelvis wo con DATE: 08/11/2021 18:14 INDICATION: llq pain, sudden onset, hematuria TECHNIQUE: Computed tomography (CT) of the abdomen and pelvis was performed without intravenous contr ast. Automated exposure control and iterative reconstruction technique were employed. The dose-length product was 359.27 mGy-cm. COMPARISON: None. FINDINGS: Lower thorax: Unremarkable Liver: Normal. Biliary/Gallbladder: Gallbladder is normal. No bile duct dilation. Pancreas: No mass or duct dilation. Spleen: Normal. Adrenals:No mass. Kidneys: No mass, stone, or hydronephrosis. GI tract: No small or large bowel dilation. Normal appendix. Mesentery/Peritoneum: No ascites, mass, or free air. Retroperitoneum: No mass. Pelvis: Bladder is decompressed. Uterus and ovaries not visualized. Soft Tissues: Soft tissues and body wall unremarkable. Bones: No acute osseous finding. IMPRESSION: No acute abdominal pelvic process. Reviewed, dictated and finalized at location K.
[2021-08-11 17:20] VITALS: BP 116/43; PULSE 71; RESP 16; TEMP 36.6; O2SAT 100
[2021-08-11 17:42] LABS: Basophils Absolute Auto 0.1 K/mm3 (0.0-0.1); Basophils Percent Auto 0.8 % (0.2-1.2); Eosinophils Absolute Auto 0.2 K/mm3 (0-0.3); Eosinophils Percent Auto 3.3 % (0-4.4); Hematocrit 38.4 % (37.0-47.0); Hemoglobin 12.7 g/dL (12.0-15.0); Immature Granulocyte Absolute 0.02 K/mm3 (0.00-0.031); Immature Granulocyte Percent A 0.3 % (0-0.5); Lymphocytes Absolute Auto 1.82 K/mm3 (0.9-3.2); Lymphocytes Percent Auto 25.2 % (18.3-44.2); Mean Corpuscular HGB Conc 33.1 g/dl (32-36); Mean Corpuscular Hemoglobin 30.1 pg (26-34); Mean Platelet Volume 9.3 fl (7.4-10.4); Monocytes Absolute Auto 0.7 K/mm3 (0.1-0.6); Monocytes Percent Auto 10.3 % (2.6-8.5); Neutrophils Absolute Auto 4.3 K/mm3 (1.3-6.7); Neutrophils Percent Auto 60.1 % (45.5-73.1); Platelet Count Result 265 k/mm3 (150-375); Red Blood Count 4.22 M/mm3 (4.2-5.4); Red Cell Distribution Width 12.1 % (11.5-14.5); White Blood Count 7.2 K/mm3 (4.5-10.0)
[2021-08-11 17:49] LABS: Appearance Urine Cloudy (Clear); Bilirubin Urine Negative (Negative); Color Urine Yellow (Yellow); Glucose Urine UA Negative (Negative); Ketones Urine Negative (Negative); Leukocyte Esterase Ur Negative LEU/UL (Negative); Nitrate Urine Negative (Negative); Protein Urine Trace mg/dL (Negative); pH Urine 8.5 (5.0-9.0)
[2021-08-11 17:53] LABS: Mucus Urine Rare /lpf; RBC Urine 21-50 /hpf (0-2); Squamous Epithelial Cell Urine Many /hpf (Few); WBC Urine 0-3 /hpf
[2021-08-11 17:54] LABS: Add Urine Microscopic? YES; Blood Urine Trace-Intact (Negative)
[2021-08-11 17:54] LABS: Alanine Aminotransferase 27 U/L (6-35); Albumin Level 4.2 g/dL (3.5-5.1); Alkaline Phosphatase 50 U/L (38-126); Anion Gap 4 mmol/L (8-16); Aspartate Amino Transferase 48 U/L (14-36); Bilirubin,Total 0.2 mg/dL (0.2-1.3); Blood Urea Nitrogen 16 mg/dL (7-17); Calcium 8.7 mg/dL (8.4-10.2); Carbon Dioxide 31 mmol/L (22-30); Chloride 104 mmol/L (98-107); Estimated CRCL calculation 57 ml/min; Estimated Glomerular Filt Rate > 60; Glucose 97 mg/dL (65-110); Lipase 54 U/L (23-300); Potassium 3.4 mmol/L (3.4-5.0); Sodium 139 mmol/L (137-145)
[2021-08-11] MEDS: MORPHINE SULFATE (*CRX) 4 MG/ML INJ IV PUSH (18:24)
--- NOTE | 2021-08-11 19:10 | ED.ABDPAIN ---
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 She also has a little bit of pain in the left lower back mostly in the front. No focal tingling or weakness anywhere, does have history of high blood pressure, Raynaud's, mitral valve prolapse, but no chest pain or difficulty breathing. Related Data Home Medications Medication Instructions Recorded Confirmed estradiol 0.1 mg/24 hr semiweekly 1 patch transdermal 2XW 03/19/21 08/02/21 transdermal patch metoprolol succinate 25 mg 25 mg PO DAILY 08/02/21 08/02/21 tablet,extended release 24 hr omeprazole 40 mg capsule,delayed 1 cap PO BID 08/02/21 08/02/21 release Allergies Allergy/AdvReac Type Severity Reaction Status Date / Time vancomycin Allergy Severe REDMANS Verified 08/02/21 13:05 SYNDROME iodine Allergy Mild Hives / Verified 08/02/21 13:05 Red Face ioversol Allergy Unknown Unknown Verified 08/02/21 13:05 Penicillins Allergy Unknown Stopped Verified 08/02/21 13:05 Breathing iohexol Allergy Itching Verified 08/02/21 13:05 [From contrast - CT, X-RAY] acetaminophen AdvReac Mild STATES Verified 08/02/21 13:05 TYLENOL RAISES LIVER ENZYMES WAS TOLD NOT TO TAKE Review of Systems Review of Systems: CONST: No fever. HEENT: No sore throat C/V: No chest pain RESP: No cough GI: Reports abdominal pain, nausea. No constipation or diarrhea : No dysuria. M/S: No joint pain. SKIN: No rash. NEURO: [No headache or focal numbness or weakness] PSYCH: [No depression] [facility] Past Medical History Medical History Heart palpitations Hypersomnia Mitral valve prolapse Family History Family History Father Family history of mental disorder Depression Family history of kidney disease Family history of human immunodeficiency virus infection Mother Family history of alcoholism Social History Social History Smoking packs per day: 1.5 Smoking cigarettes per day: 30.0 Years smoked: 14 Smoking pack-years: 21.00 Smoking status: Never smoker Alcohol intake: current Exam Narrative: EXAMINATION OF ORGAN SYSTEMS/BODY AREAS: Constitutional: Vital signs per nursing GENERAL: Appears to be in pain HEAD: Normal with no signs of head trauma. EYES: EOMI, conjunctiva normal ENT: Hearing grossly intact LUNGS: Nonlabored breathing. HEART: [Regular rate and rhythm] ABD: [Soft], [tender to palpation] left lower quadrant; no flank pain EXT: Normal range of motion SKIN: [No rashes or lesions.] NEURO: [Alert and oriented x 3. No gross focal sensory or strength deficits.] PSYCH: Normal affect Course Vital Signs Vital signs: Vital Signs Temperature 97.8 F 08/11/21 17:20 Pulse Rate 71 08/11/21 17:20 Respiratory Rate 16 08/11/21 17:20 Blood Pressure 116/43 L 08/11/21 17:20 Pulse Oximetry 100 08/11/21 17:20 Oxygen Delivery Room Air 08/11/21 17:20 Temperature 97.8 F 08/11/21 17:20 Pulse Rate 70 08/11/21 19:28 Respiratory Rate 20 08/11/21 19:28 Blood Pressure 120/72 08/11/21 19:28 Pulse Oximetry 99 08/11/21 19:28 Oxygen Delivery Room Air 08/11/21 17:20 MDM - Abdominal Pain MDM Narrative Medical decision making narrative: 36-year-old female presenting with sudden onset severe left lower quadrant pain with nausea, vital stable, exam does show tenderness to the left lower quadrant, differential includes diverticulitis, nephrolithiasis, kidney stone, less likely SBO giv
[2021-08-11 19:28] VITALS: BP 120/72; PULSE 70; RESP 20; O2SAT 99
== END 2021-08-11 19:54 | disposition home or self-care (01) ==
PROVIDERS: Emergency Medicine; Emergency Provider Emergency Medicine
DX: R10.32 Left lower quadrant pain (principal); R31.9 Hematuria, unspecified; I34.1 Nonrheumatic mitral (valve) prolapse; F17.210 Nicotine dependence, cigarettes, uncomplicated
CPT/HCPCS: 36415; 74176; 80053; 81001; 83690; 85025; 96374; 99284; J2270

== ENCOUNTER 2021-11-21 09:41 | Outpatient (CLI) | payer OTHER, MEDICAID, SELFPAY ==
--- NOTE | ~2021-11-21 | US_ITS ---
US breast LT complete DATE: 11/21/2021 10:49 INDICATION: Left breast pain TECHNIQUE: Real-time imaging of all 4 quadrants, subareolar area and left axilla COMPARISON: 05/02/2021 bilateral diagnostic mammogram and bilateral Limited breast ultrasound FINDINGS: No suspicious mass, shadowing, cyst or other significant sonographic finding is noted in ei ther breast IMPRESSION: BI-RADS Category 1: Negative Reviewed, dictated and finalized at Location A. Reviewed, dictated and finalized at location A.
== END 2021-11-21 09:42 | disposition home or self-care (01) ==
LOC: ANHIMG 09:45
PROVIDERS: Visit Provider Nurse Practitioner Obstetrics & Gynecology
DX: N64.4 Mastodynia (principal)
CPT/HCPCS: 76641

== ENCOUNTER 2022-01-23 08:25 | Outpatient (CLI) | payer OTHER, MEDICAID, SELFPAY ==
--- NOTE | ~2022-01-23 | CT_ITS ---
EXAMINATION: CT diagnostic chest wo con DATE: 01/23/2022 08:42 INDICATION: Assessment of lung nodules. TECHNIQUE: Computed tomography (CT) of the chest was performed without intravenous contrast. The dose -length product was 74.59 mGy-cm. COMPARISON: Chest x-ray dated 05/07/2021 FINDINGS: No significant pleural or pericardial effusion. No thoracic lymphadenopathy. Heart size nor mal. No evidence for aortic aneurysm. The upper abdomen is unremarkable. There is a calcified granulo ma in the right lung base. No endobronchial lesions. No pneumothorax. There is a 3 mm pleural-based n odule, image 72 in the right lower lobe. IMPRESSION: 1. 3 mm pleural-based nodule right lower lobe, likely benign. Consider follow-up low dose CT chest in 12 months as clinically indicated. Reviewed, dictated and finalized at location A. GEMENT S[employer] IMPRESSION: 1. 3 mm pleural-based nodule right lower lobe, likely benign. Consider follow-u p low dose CT chest in 12 months as clinically indicated.
== END 2022-01-23 08:26 | disposition home or self-care (01) ==
PROVIDERS: Visit Provider Internal Medicine Cardiovascular Disease
DX: R91.1 Solitary pulmonary nodule (principal)
CPT/HCPCS: 71250

== ENCOUNTER 2022-02-08 09:50 | Emergency (ER) | payer OTHER, MEDICAID, SELFPAY ==
[2022-02-08 10:25] VITALS: BP 122/59; PULSE 74; RESP 16; TEMP 36.2; O2SAT 100
--- NOTE | 2022-02-08 11:53 | ED.GENADULT ---
HPI - General Adult General Chief complaint: Upper Respiratory Infection Stated complaint: cough,loss of voice,sore throat Source: patient Mode of arrival: ambulatory Limitations: no limitations History of Present Illness HPI narrative: Patient presents for evaluation of sick symptoms for last 2 days. She reports sore throat, hoarse voice, and cough which is mostly nonproductive. She has some chronic chest pain and palpitations in states that the chest pain is unchanged from baseline. She has mild increase in her palpitations since the time of symptom onset. No fever, chills, nausea, vomiting, diarrhea. She had COVID over Thanksgiving. She is requesting a flu test. 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 She does not smoke. No additional complaints or concerns. Related Data Home Medications Medication Instructions Recorded Confirmed estradiol 0.1 mg/24 hr semiweekly 1 patch transdermal 2XW 03/19/21 02/08/22 transdermal patch omeprazole 40 mg capsule,delayed 1 cap PO BID 08/02/21 02/08/22 release Allergies Allergy/AdvReac Type Severity Reaction Status Date / Time vancomycin Allergy Severe REDMANS Verified 02/08/22 10:29 SYNDROME iodine Allergy Mild Hives / Verified 02/08/22 10:29 Red Face ioversol Allergy Unknown Unknown Verified 02/08/22 10:29 Penicillins Allergy Unknown Stopped Verified 02/08/22 10:29 Breathing iohexol Allergy Itching Verified 02/08/22 10:29 [From contrast - CT, X-RAY] acetaminophen AdvReac Mild STATES Verified 02/08/22 10:29 TYLENOL RAISES LIVER ENZYMES WAS TOLD NOT TO TAKE Review of Systems Review of Systems: CONSTITUTIONAL: DENIES FEVER, CHILLS, OR SWEATS. EYES: DENIES VISUAL CHANGES, REDNESS, OR DISCHARGE. ENT: REPORTS SORE THROAT AND ?HOARSE VOICE?. CARDIOVASCULAR: REPORTS CHRONIC CHEST PAIN AND PALPITATIONS, NOT WORSE FROM BASELINE RESPIRATORY: REPORTS COUGH AND MILD SOB GASTROINTESTINAL: DENIES ABDOMINAL PAIN, NAUSEA, VOMITING, OR DIARRHEA. GENITOURINARY: DENIES DYSURIA OR HEMATURIA. SKIN: DENIES RASH OR ITCHING. MUSCULOSKELETAL: DENIES BACK PAIN, JOINT PAIN, OR MYALGIA. NEUROLOGIC: DENIES HEADACHE, NUMBNESS, DIZZINESS, OR WEAKNESS. PSYCHIATRIC: DENIES ANXIETY OR DEPRESSION. [facility] Past Medical History Medical History (Updated 02/08/22 @ 12:13 by GUSTAVO BinghamP, ) Heart palpitations Hypersomnia Mitral valve prolapse Surgical History Surgical History No pertinent past surgical history Family History Family History Father Family history of mental disorder Depression Family history of kidney disease Family history of human immunodeficiency virus infection Mother Family history of alcoholism Social History Social History Smoking packs per day: 1.5 Smoking cigarettes per day: 30.0 Years smoked: 14 Smoking pack-years: 21.00 Smoking status: Former smoker Alcohol intake: current Substance use: never Gender identity (if verbalized by the patient): Female Sexual Orientation (if Verbalized by the Patient): Straight or Heterosexual Spiritual care concerns: No Exam Narrative: GENERAL: Well-appearing, well-nourished, and in no acute distress. HEAD: Normocephalic, atraumatic. EYES: PERRLA and EOMI. ENT: Nares clear, no rhinorrhea or epistaxis. Mucous membranes moist. Mild posterior pharyngeal erythema without exudate. Uvula is midline. Bilateral TMs pearly montez nonbulging NECK: Supple. No adenopathy or masses. No carotid bruits or JVD CHEST: Clear to auscultation. No respiratory distress. No wheezes rales or rhonchi HEART: Regular rate and rhythm. No murmur heard. Normal peripheral pulses. ABDOMEN: Soft, nontender, nondistended, normal a
--- NOTE | 2022-02-08 12:23 | PC.NURSE ---
ACTUAL DISCHARGE TIME WAS 1220 NOT 1033. SEB TORRES RN
== END 2022-02-08 10:33 | disposition home or self-care (01) ==
LOC: EXPBETH 10:02
PROVIDERS: Emergency Provider Nurse Practitioner
DX: B34.9 Viral infection, unspecified (principal); Z87.891 Personal history of nicotine dependence; I34.1 Nonrheumatic mitral (valve) prolapse; Z86.16 Personal history of COVID-19
CPT/HCPCS: 87804; 99213; G0463

== ENCOUNTER 2022-02-24 12:34 | Outpatient (CLI) | payer OTHER, MEDICAID, SELFPAY ==
--- NOTE | 2022-02-24 12:45 | ECHO_ITS ---
Patient Info Name: Sangeeta Mcknight Age: 36 years : 1985 Gender: Female Ht: 61 in Wt: 136 lbs BSA: 1.64 m2 HR: 69 bpm BP: 88 / 62 mmHg Technical Quality: Good Exam Date: 02/24/2022 1:09 PM Exam Location: [facility] Patient Status: Outpatient Admit Date: 02/24/2022 Staff Ordering Physician: John Leblanc DO Apprentice Painter Hand: Vidya Alcala RDCS Attending Provider: John Leblanc DO Referring Physician: Benji AYALA; Exam Type: CA echo doppler color flow Study Info Indications R00.2 - Palpitations Complete two-dimensional, color flow and Doppler transthoracic echocardiogram is performed. Summary 1. Complete two-dimensional, color flow and Doppler transthoracic echocardiogram is performed. 2. Left ventricular chamber dimension is normal. 3. Left ventricular systolic function is normal, estimated at 60-65%. 4. The left ventricular diastolic function is normal. 5. E/e' 9 is minimally elevated. 6. Left atrial chamber dimension is moderately enlarged. 7. Bowing of the interatrial septum to the right by 2D and color flow imaging without shunt by color doppler. 8. The mitral valve has moderately bileaflet prolapse. 9. There is moderate mitral valve regurgitation. 10. There is mild tricuspid valve regurgitation. 11. There is trace pulmonic regurgitation. Left Ventricle E/e' 9 is minimally elevated. Left ventricular chamber dimension is normal. Left ventricular systolic function is normal, estimated at 60-65%. The left ventricular diastolic function is normal. Right Ventricle Right ventricular systolic function is normal and with normal TAPSE 2.0 cm. Right ventricular chamber dimension is normal. Left Atria Left atrial chamber dimension is moderately enlarged. Right Atria Right atrial chamber dimension is normal. Atrial Septum Bowing of the interatrial septum to the right by 2D and color flow imaging without shunt by color doppler. Aortic Valve The aortic valve is trileaflet. There is no aortic valve stenosis. There is no aortic valve regurgitation. Pulmonic Valve There is trace pulmonic regurgitation. Mitral Valve The mitral valve has moderately bileaflet prolapse. There is no mitral valve stenosis. There is moderate mitral valve regurgitation. Tricuspid Valve There is mild tricuspid valve regurgitation. RVSP is not calculated due to an inadequate TR jet. Pericardium/Pleural There is no pericardial effusion. Inferior Vena Cava Normal inferior vena cava with >50% collapse upon inspiration consistent with normal right atrial pressure, 5 mmHg. Aorta The aortic root size at the sinus of Valsalva is normal. Left Ventricular Outflow Tract Name Value Normal LVOT 2D LVOT Diameter 2.0 cm LVOT Doppler LVOT Peak Gradient 4 mmHg LVOT Mean Gradient 2 mmHg LVOT VTI 17 cm LVOT VTI/AV VTI Ratio 0.8 LVOT Stroke Volume 52 ml LVOT CO 3.9 l/min LVOT CI
== END 2022-02-24 12:35 | disposition home or self-care (01) ==
PROVIDERS: Visit Provider Internal Medicine Cardiovascular Disease
DX: R00.2 Palpitations (principal); I08.1 Rheumatic disorders of both mitral and tricuspid valves
CPT/HCPCS: 93306

== ENCOUNTER 2022-06-26 08:13 | Outpatient (CLI) | payer MEDICAID, SELFPAY ==
--- NOTE | ~2022-06-26 | MM_ITS ---
EXAMINATION: MM screening zaki BI w fifi HISTORY: Screening mammogram TECHNIQUE: Craniocaudal and mediolateral oblique 3-D tomosynthesis images were obtained and synthetic 2-D images were generated. CAD analysis was submitted and interpreted. COMPARISON: 05/02/2021 BREAST PARENCHYMAL COMPOSITION: There are scattered areas of fibroglandular density. FINDINGS: No suspicious mass, calcification, or architectural distortion are identified in either vinayak ast to suggest malignancy. There has been no suspicious interval change. IMPRESSION: 1. No mammographic evidence of malignancy. 2. Recommend routine screening mammography beginning at age 40. BI-RADS Category 1: Negative Reviewed, dictated and finalized at location A.
== END 2022-06-26 08:14 | disposition home or self-care (01) ==
LOC: ANHIMG 08:15
PROVIDERS: PCP Nurse Practitioner Obstetrics & Gynecology; Visit Provider Nurse Practitioner Obstetrics & Gynecology
DX: Z12.31 Encounter for screening mammogram for malignant neoplasm of breast (principal)
CPT/HCPCS: 77063; 77067

== ENCOUNTER 2023-01-06 08:14 | Outpatient (CLI) | payer OTHER, MEDICAID, SELFPAY ==
[2023-01-06 08:42] LABS: Basophils Absolute Auto 0.1 K/mm3 (0.0-0.1); Basophils Percent Auto 1.2 % (0.2-1.2); Eosinophils Absolute Auto 0.2 K/mm3 (0-0.3); Eosinophils Percent Auto 3.6 % (0-4.4); Hematocrit 41.4 % (37.0-47.0); Hemoglobin 13.4 g/dL (12.0-15.0); Immature Granulocyte Absolute 0.02 K/mm3 (0.00-0.031); Immature Granulocyte Percent A 0.3 % (0-0.5); Lymphocytes Absolute Auto 1.36 K/mm3 (0.9-3.2); Lymphocytes Percent Auto 23.5 % (18.3-44.2); Mean Corpuscular HGB Conc 32.4 g/dl (32-36); Mean Corpuscular Hemoglobin 29.9 pg (26-34); Mean Corpuscular Volume 92.4 fl (80-100); Mean Platelet Volume 9.4 fl (7.4-10.4); Monocytes Absolute Auto 0.6 K/mm3 (0.1-0.6); Monocytes Percent Auto 10.4 % (2.6-8.5); Neutrophils Absolute Auto 3.5 K/mm3 (1.3-6.7); Platelet Count Result 252 k/mm3 (150-375); Red Blood Count 4.48 M/mm3 (4.2-5.4); Red Cell Distribution Width 12.7 % (11.5-14.5); White Blood Count 5.8 K/mm3 (4.5-10.0)
[2023-01-06 08:55] LABS: Alanine Aminotransferase 21 U/L (6-35); Alkaline Phosphatase 41 U/L (38-126); Anion Gap 8 mmol/L (8-16); Aspartate Amino Transferase 31 U/L (14-36); Bilirubin,Total 0.6 mg/dL (0.2-1.3); Blood Urea Nitrogen 13 mg/dL (7-17); Calcium 8.6 mg/dL (8.4-10.2); Carbon Dioxide 29 mmol/L (22-30); Chloride 102 mmol/L (98-107); Cholesterol 192 mg/dL (0-200); Estimated Glomerular Filt Rate > 60; Glucose 91 mg/dL (65-110); HDL Direct 57 mg/dL; Hemoglobin A1C 4.6 % (<5.7); Potassium 4.1 mmol/L (3.4-5.0); Sodium 139 mmol/L (137-145); Triglycerides 71 mg/dL (<150)
[2023-01-06 09:06] LABS: LDL Cholesterol Direct 95 mg/dL
== END 2023-01-06 08:15 | disposition home or self-care (01) ==
LOC: ANHLAB 08:20
PROVIDERS: Visit Provider Internal Medicine Cardiovascular Disease
DX: I34.1 Nonrheumatic mitral (valve) prolapse (principal)
CPT/HCPCS: 36415; 80053; 80061; 83036; 83735; 84443; 85025

== ENCOUNTER 2023-01-29 10:31 | Outpatient (CLI) | payer OTHER, MEDICAID, SELFPAY ==
--- NOTE | ~2023-01-29 | CT_ITS ---
CT Scan of the Chest without Contrast: Clinical Indication: Pulmonary nodule Technique: Contiguous sections were acquired throughout the chest without intravenous contrast. Dose reduction technique was used on this scan by utilizing automated exposure control and iterative recon struction technique. The dose-length product (DLP) was 59.75 mGy-cm. COMPARISON: 01/23/2022 Findings: There is no evidence of any significant mediastinal, hilar or axillary lymphadenopathy. The mediastin al soft tissues appear normal. There is no evidence of pleural or pericardial effusion. Stable 3 mm pleural-based nodule right lower lobe. No other pulmonary abnormality. Images through the upper abdomen reveal no abnormalities. Impression: Stable 3 mm right lower lobe pulmonary nodule, most likely benign. Reviewed, dictated and finalized at location . ON LAP MACHINE TENDER Impression: Stable 3 mm right lower lobe pulmonary nodule, most likely benign.
== END 2023-01-29 10:32 | disposition home or self-care (01) ==
PROVIDERS: Visit Provider Internal Medicine Cardiovascular Disease
DX: R91.1 Solitary pulmonary nodule (principal)
CPT/HCPCS: 71250

== ENCOUNTER 2023-03-15 13:48 | Emergency (ER) | payer OTHER, MEDICAID, SELFPAY ==
[2023-03-15 13:56] VITALS: BP 113/52; PULSE 89; RESP 20; TEMP 36.9; O2SAT 100
--- NOTE | 2023-03-15 14:07 | ED.URI ---
HPI - URI/Sore Throat General Chief Complaint: Upper Respiratory Infection Stated Complaint: Cough/Chest Congestion/ Drainage Time Seen by Provider: 03/15/23 14:19 Source: patient and RN notes reviewed Mode of arrival: ambulatory Limitations: no limitations History of Present Illness HPI Narrative: 37-year-old female presents concern for one-week history of cough. She reports 3 days ago she began having sore throat, nasal congestion, runny nose, chills, general malaise. She has not taken any [id number] medication for her symptoms MD elicited complaint: cough and sore throat Related Data Home Medications Medication Instructions Recorded Confirmed estradiol 0.1 mg/24 hr semiweekly 1 patch transdermal 2XW 03/19/21 03/15/23 transdermal patch omeprazole 40 mg capsule,delayed 1 cap PO BID 08/02/21 03/15/23 release sertraline 50 mg tablet (Zoloft) 50 mg PO DAILY 09/15/22 03/15/23 lisdexamfetamine 30 mg capsule 40 mg PO DAILY 12/21/22 03/15/23 (Vyvanse) Allergies Allergy/AdvReac Type Severity Reaction Status Date / Time vancomycin Allergy Severe REDMANS Verified 03/15/23 14:13 SYNDROME iodine Allergy Mild Hives / Verified 03/15/23 14:13 Red Face ioversol Allergy Unknown Unknown Verified 03/15/23 14:13 Penicillins Allergy Unknown Stopped Verified 03/15/23 14:13 Breathing iohexol Allergy Itching Verified 03/15/23 14:13 [From contrast - CT, X-RAY] acetaminophen AdvReac Mild STATES Verified 03/15/23 14:13 TYLENOL RAISES LIVER ENZYMES WAS TOLD NOT TO TAKE Review of Systems Review of Systems: CONSTITUTIONAL: Reports malaise, chills EYES: Denies visual changes, redness, or discharge. ENT: Reports rhinorrhea, congestion, and sore throat. CARDIOVASCULAR: Denies chest pain, palpitations, or edema. RESPIRATORY: Reports cough. Denies dyspnea. GASTROINTESTINAL: Denies abdominal pain, nausea, vomiting, diarrhea SKIN: Denies rash or itching. MUSCULOSKELETAL: Denies myalgia. NEUROLOGIC: Denies headache. All systems reviewed & are unremarkable except as noted in HPI and below PMFSH Past Medical History Medical History Heart palpitations Hypersomnia Mitral valve prolapse Surgical History Surgical History No pertinent past surgical history Family History Family History Father Family history of mental disorder Depression Family history of kidney disease Family history of human immunodeficiency virus infection Mother Family history of alcoholism Social History Social History Smoking packs per day: 1.5 Smoking cigarettes per day: 30.0 Years smoked: 14 Smoking pack-years: 21.00 Smoking status: Former smoker Alcohol intake: current Substance use: never Gender identity (if verbalized by the patient): Female Sexual Orientation (if Verbalized by the Patient): Straight or Heterosexual Spiritual care concerns: No Comments At time of signature, agree with nursing past medical, surgical, social and family history. There is no relevant family history pertinent to the presenting complaint Exam Narrative: GENERAL: Well-appearing, well-nourished, and in no acute distress. HEAD: Normocephalic EYES: PERRLA, conjunctivae clear ENT: Nares clear, turbinates edematous and erythematous, clear discharge. Mucous membranes moist. TM pearly montez with dull light reflex bilaterally; no tragal tenderness. Oropharynx not erythematous without lesions. Tonsils not enlarged and without exudate, no drooling, no hoarseness, no trismus, uvula midline. NECK: Supple. No lymphadenopathy CHEST: Clear to auscultation, breath sounds equal. No wheezing, rhonchi, rales, or stridor. No respiratory distress, speaks in full sentenc
== END 2023-03-15 14:50 | disposition home or self-care (01) ==
PROVIDERS: Emergency Provider Nurse Practitioner
DX: J06.9 Acute upper respiratory infection, unspecified (principal); Z20.822 Contact with and (suspected) exposure to COVID-19; I34.1 Nonrheumatic mitral (valve) prolapse; Z87.891 Personal history of nicotine dependence
CPT/HCPCS: 87081; 87426; 87804; 87880; 99213; G0463

== ENCOUNTER 2023-03-22 12:49 | Emergency (ER) | payer OTHER, MEDICAID, SELFPAY ==
[2023-03-22 13:07] VITALS: BP 113/38; PULSE 98; RESP 16; TEMP 36.9; O2SAT 100
--- NOTE | 2023-03-22 13:17 | ED.URI ---
HPI - URI/Sore Throat General Chief Complaint: Upper Respiratory Infection Stated Complaint: Chest congestion, Cough, Hearing loss History of Present Illness HPI Narrative: PATIENT PRESENTS WITH CONTINUED SORE THROAT COUGH BODY ACHES AND GENERAL FATIGUE. PATIENT DENIES ANY FEVER NO SHORTNESS OF BREATH NO CHEST PAIN. PATIENT STATES SHE IS TAKING A Z-EM AND USING CIPRODEX EAR DROPS TO BOTH EARS. Related Data Home Medications Medication Instructions Recorded Confirmed estradiol 0.1 mg/24 hr semiweekly 1 patch transdermal 2XW 03/19/21 03/22/23 transdermal patch omeprazole 40 mg capsule,delayed 1 cap PO BID 08/02/21 03/22/23 release lisdexamfetamine 50 mg capsule 50 mg PO DAILY 03/22/23 03/22/23 (Vyvanse) venlafaxine 75 mg capsule,extended 75 mg PO DAILY 03/22/23 03/22/23 release 24 hr Allergies Allergy/AdvReac Type Severity Reaction Status Date / Time vancomycin Allergy Severe REDMANS Verified 03/15/23 14:13 SYNDROME iodine Allergy Mild Hives / Verified 03/15/23 14:13 Red Face ioversol Allergy Unknown Unknown Verified 03/15/23 14:13 Penicillins Allergy Unknown Stopped Verified 03/15/23 14:13 Breathing iohexol Allergy Itching Verified 03/15/23 14:13 [From contrast - CT, X-RAY] acetaminophen AdvReac Mild STATES Verified 03/15/23 14:13 TYLENOL RAISES LIVER ENZYMES WAS TOLD NOT TO TAKE Review of Systems Review of Systems: CONSTITUTIONAL: DENIES CHILLS, OR SWEATS. REPORTS FEVER AND GENERALIZED BODY ACHES EYES: DENIES VISUAL CHANGES, REDNESS, OR DISCHARGE. ENT: DENIES OTALGIA. REPORTS NASAL CONGESTION RUNNY NOSE AND SORE THROAT CARDIOVASCULAR: DENIES CHEST PAIN, PALPITATIONS, OR EDEMA. RESPIRATORY: DENIES DYSPNEA. REPORTS OCCASIONAL COUGH GASTROINTESTINAL: DENIES ABDOMINAL PAIN, NAUSEA, VOMITING, OR DIARRHEA. GENITOURINARY: DENIES DYSURIA OR HEMATURIA. SKIN: DENIES RASH OR ITCHING. MUSCULOSKELETAL: DENIES BACK PAIN, JOINT PAIN, OR MYALGIA. REPORTS GENERALIZED BODY ACHES NEUROLOGIC: DENIES HEADACHE, NUMBNESS, OR WEAKNESS. PSYCHIATRIC: DENIES ANXIETY OR DEPRESSION. [facility] Past Medical History Medical History Heart palpitations Hypersomnia Mitral valve prolapse Surgical History Surgical History No pertinent past surgical history Family History Family History Father Family history of mental disorder Depression Family history of kidney disease Family history of human immunodeficiency virus infection Mother Family history of alcoholism Social History Social History Smoking packs per day: 1.5 Smoking cigarettes per day: 30.0 Years smoked: 14 Smoking pack-years: 21.00 Smoking status: Former smoker Alcohol intake: current Substance use: never Gender identity (if verbalized by the patient): Female Sexual Orientation (if Verbalized by the Patient): Straight or Heterosexual Spiritual care concerns: No Comments AT TIME OF SIGNATURE, AGREE WITH NURSING PAST MEDICAL, SURGICAL, SOCIAL AND FAMILY HISTORY. THERE IS NO RELEVANT FAMILY HISTORY PERTINENT TO THE PRESENTING COMPLAINT Exam Narrative: THE PATIENT IS A WELL-DEVELOPED, WELL-NOURISHED IN NO ACUTE DISTRESS. SKIN: SKIN IS WARM AND DRY WITHOUT ERYTHEMA, SWELLING OR EXUDATE. THERE IS GOOD TURGOR. NO TENTING. HEAD: ATRAUMATIC. NORMOCEPHALIC. NO TEMPORAL OR SCALP TENDERNESS. EYES: MOIST AND BRIGHT. SCLERA AND CONJUNCTIVAE NORMAL. NO DISCHARGE. PERRLA. EXTRAOCULAR MOTIONS INTACT. GROSS VISUAL ACUITY INTACT. EARS: PINNA IS NORMAL SHAPE AND CONTOUR. CLEAR EXTERNAL AUDITORY CANALS. TM PEARLY CARBALLO WITH GOOD CONE OF LIGHT, NO ERYTHEMA OR SUPPURATION. BILATERAL CERUMEN NOTED NO GROSS HEARING DEFICIT. NOSE: PINK, MOIST MUCOSA WITH GOOD AIR
== END 2023-03-22 13:41 | disposition home or self-care (01) ==
PROVIDERS: Emergency Provider Nurse Practitioner Family
DX: J06.9 Acute upper respiratory infection, unspecified (principal); Z20.822 Contact with and (suspected) exposure to COVID-19; Z87.891 Personal history of nicotine dependence; I34.1 Nonrheumatic mitral (valve) prolapse
CPT/HCPCS: 87426; 87804; 99213; G0463

== ENCOUNTER 2023-06-23 08:55 | Outpatient (CLI) | payer OTHER, MEDICAID, SELFPAY ==
--- NOTE | 2023-06-23 09:07 | ECHO_ITS ---
Patient Info Name: Sangeeta Mcknight Age: 38 years : 1985 Gender: Female Ht: 60 in Wt: 124 lbs BSA: 1.55 m2 HR: 80 bpm BP: 108 / 67 mmHg Heart Rhythm: Sinus Rhythm Technical Quality: Good Exam Date: 06/23/2023 9:13 AM Exam Location: [facility] Patient Status: Outpatient Admit Date: 06/23/2023 Staff Ordering Physician: John Leblanc DO Rivet Hole Machine Operator: Rama Jung RDCS Attending Provider: John Leblanc DO Referring Physician: Benji AYALA; Exam Type: CA echo doppler w bubble study Study Info Indications I34.1 - Nonrheumatic mitral (valve) prolapse Complete two-dimensional, color flow and Doppler transthoracic echocardiogram is performed with agitated saline. Contrast/Agitated Saline Contrast/Ag. Saline: Agitated Saline Amount: 14.00 ml Administered By: Rama Jung RDCS Existing IV Access: No New IV Access: Left Site Condition: IV removed Summary 1. Left ventricular chamber dimension is normal. 2. Left ventricular systolic function is normal, estimated at 65-70%. 3. The left ventricular diastolic function is normal. 4. E/e' 9 is minimally elevated. 5. Left atrial chamber dimension is moderately enlarged. 6. Interatrial septal aneurysm bowing to right with no evidence of shunting. 7. Agitated saline injection with and without valsalva maneuver opacified right side cardiac chambers without shunt to left side cardiac chambers. 8. The mitral valve has moderate bileaflet prolapse. 9. There is moderate mitral valve regurgitation. 10. No pulmonary hypertension, estimated pulmonary arterial systolic pressure is 21 mmHg. Left Ventricle E/e' 9 is minimally elevated. Left ventricular chamber dimension is normal. Left ventricular systolic function is normal, estimated at 65-70%. The left ventricular diastolic function is normal. Right Ventricle Right ventricular systolic function is normal and with normal TAPSE 2.6 cm. Right ventricular chamber dimension is normal. Left Atria Left atrial chamber dimension is moderately enlarged. Right Atria Right atrial chamber dimension is normal. 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 Agitated saline injection with and without valsalva maneuver opacified right side cardiac chambers without shunt to left side cardiac chambers. Intact interatrial septum visualized by 2D and agitated saline imaging. Aortic Valve The aortic valve is trileaflet. There is no aortic valve stenosis. There is no aortic valve regurgitation. Pulmonic Valve There is no pulmonic regurgitation. Mitral Valve The mitral valve has moderate bileaflet prolapse. There is no mitral valve stenosis. There is moderate mitral valve regurgitation. Tricuspid Valve There is no tricuspid valve regurgitation. No pulmonary hypertension, estimated pulmonary arterial systolic pressure is 21 mmHg. Pericardium/Pleural There is no pericardial effusion. Inferior Vena Cava Normal inferior vena cava with >50% collapse upon inspiration consistent with normal right atrial pressure, 5 mmHg. Aorta The aortic root size at the sinus of Valsalva is normal. Left Ventricular Outflow Tract Name Value Normal LVOT 2D LVOT Diameter 2.0 cm LVOT Doppler
== END 2023-06-23 08:56 | disposition home or self-care (01) ==
LOC: ANHCARD 08:59
PROVIDERS: Visit Provider Internal Medicine Cardiovascular Disease
DX: I34.0 Nonrheumatic mitral (valve) insufficiency (principal)
CPT/HCPCS: 93306; 96375

== ENCOUNTER 2024-01-10 11:39 | Emergency (ER) | payer OTHER, MEDICAID, SELFPAY ==
--- NOTE | ~2024-01-10 | XR_ITS ---
CHEST RADIOGRAPH, PA AND LATERAL CLINICAL HISTORY: cough fevers . COMPARISON: Reference is made to CT examination of the chest dated 01/29/2023 TECHNIQUE: PA and lateral views of the chest. FINDINGS The cardiomediastinal silhouette is unremarkable. Increased density within the left upper lobe for which an early infiltrate is suspected. The remainder the lungs are clear. Visualized osseous structures and soft tissues are unremarkable. IMPRESSION: Early infiltrate within the left upper lobe, as detailed above. Reviewed, dictated and finalized at location A. T MAINTENANCE MANAGER
[2024-01-10 11:55] VITALS: BP 107/45; PULSE 110; RESP 24; TEMP 37.4
--- NOTE | 2024-01-10 11:57 | ED_ITS ---
HPI - URI/Sore Throat General Chief Complaint: Upper Respiratory Infection Stated Complaint: Cough/Fever/Chest Congestion/Chills Time Seen by Provider: 01/10/24 11:57 Source: patient, family, RN notes reviewed and old records reviewed Mode of arrival: ambulatory Limitations: no limitations History of Present Illness HPI Narrative: 38 year old female who presents to [facility] care with complaints of cough, fevers up to 103.7F, some chest wheezing and rattling sensation, sore throat, headache, chills fatigue, face pain for the past 24 hours. Patient reports that she has not taken any OTC medications for her symptoms, states can't take Tylenol and she had no Ibuprofen at home. MD elicited complaint: cough and sore throat Pertinent past history: other (MVP, a fib, palpitations follows with Dr Leblanc) Onset (ago): hour(s) (24 hours) Consistency: progressively worsening Pain scale (0-10): 6 Able to tolerate fluids by mouth: Yes Treatments prior to arrival: none Related Data Home Medications Medication Instructions Recorded Confirmed estradiol 0.1 mg/24 hr semiweekly 1 patch transdermal 2XW 03/19/21 01/10/24 transdermal patch venlafaxine 75 mg capsule,extended 75 mg PO DAILY 03/22/23 01/10/24 release 24 hr meclizine 25 mg tablet 25 mg PO BID PRN Dizziness 04/01/23 01/10/24 lisdexamfetamine 30 mg capsule 30 mg PO DAILY 01/10/24 01/10/24 (Vyvanse) Allergies Allergy/AdvReac Type Severity Reaction Status Date / Time vancomycin Allergy Severe REDMANS Verified 01/10/24 12:28 SYNDROME iodine Allergy Mild Hives / Verified 01/10/24 12:28 Red Face ioversol Allergy Unknown Unknown Verified 01/10/24 12:28 Penicillins Allergy Unknown Stopped Verified 01/10/24 12:28 Breathing iohexol Allergy Itching Verified 01/10/24 12:28 [From contrast - CT, X-RAY] acetaminophen AdvReac Mild STATES Verified 01/10/24 12:28 TYLENOL RAISES LIVER ENZYMES WAS TOLD NOT TO TAKE Review of Systems Review of Systems: CONSTITUTIONAL:Reports malaise, chills, sweats, or fever. EYES: Denies visual changes, redness, or discharge. ENT: Reports rhinorrhea, congestion, sinus pain, no otalgia and positive for sore throat. CARDIOVASCULAR: Denies chest pain, palpitations, or edema. RESPIRATORY: Reports cough.? reports some dyspnea with wheezing and rattling feeling in chest. GASTROINTESTINAL: Denies abdominal pain, nausea, vomiting, diarrhea SKIN: Denies rash or itching. MUSCULOSKELETAL: Denies myalgia. NEUROLOGIC: Reports headache. All systems reviewed & are unremarkable except as noted in HPI and below PMFSH Past Medical History Medical History (Updated 01/11/24 @ 11:15 by Gladys Garcia NP) ADHD, adult residual type Heart palpitations Hypersomnia Mitral valve prolapse Pneumonia Surgical History Surgical History (Updated 01/11/24 @ 11:14 by Gladys Garcia NP) H/O: hysterectomy Family History Family History Father Family history of mental disorder Depression Family history of kidney disease Family history of human immunodeficiency virus infection Mother Family history of alcoholism Social History Social History Smoking packs per day: 1.5 Smoking cigarettes per day: 30.0 Years smoked: 14 Smoking pack-years: 21.00 Smoking status: Former smoker Alcohol intake: current Substance use: never Do You Feel Safe in your Home?: Yes Lack of Transportation: No Lack of Food: Never True Current Housing: I Have Housing Concerned About Future Housing: No Difficulty Paying Gas/Electric Bills: No Difficulty Paying for Meds: No Currently Unemployed: No Education: Bachelor's Degree Difficulty w/ Childcare or Family Care: No Gender identity (if verbalized by the patient): Female Sexual Orientation (if Verbalized by the Patient): Straight or Heterosexual Spiritual care concerns: No Comments At time of signature, agree with nursing past medical, surgical, social and family history. There is no relevant family history pertinent to the presenting complaint Exam Narrative: GENERAL:ill-appearing, well-nourished, and in no acute distress. HEAD: Normocephalic EYES: PERRLA, conjunctivae clear ENT: Nares clear, turbinates edematous and erythematous, clear discharge. Mucous membranes moist. TM pearly montez with dull light reflex bilaterally; no tragal tenderness. Oropharynx erythematous without lesions. Tonsils not enlarged and without exudate, no drooling, no hoarseness, no trismus, uvula midline.post nasal drainage NECK: Supple. No lymphadenopathy CHEST: Scattered wheezes and rhonchi left lung on auscultation, breath sounds equal. Positive for wheezing,positive left rhonchi,no rales, or stridor. No respiratory distress, speaks in full sentences.mild tachypnea, cough frequent, SAO2 97% on room air HEART: Regular rate and rhythm. No murmur heard. SKIN: Warm, dry, no rash. NEURO: Alert and oriented x3. PSYCH: Normal mood and affect Course Course Emergency Course: Patient is aware of diagnosis, understands and agrees to treatment plan.? Anticipatory guidance given.? Patient agrees to follow-up as directed and is aware of reasons to seek care at the emergency department. Portions of this record may have been created with voice recognition software Level of Care: Express Care Visit Vital Signs Vital signs: Vital Signs Temperature 37.4 C 01/10/24 11:55 Pulse Rate 110 H 01/10/24 11:55 Respiratory Rate 24 H 01/10/24 11:55 Blood Pressure 107/45 L 01/10/24 11:55 Temperature 37.4 C 01/10/24 11:55 Pulse Rate 110 H 01/10/24 11:55 Respiratory Rate 24 H 01/10/24 11:55 Blood Pressure 107/45 L 01/10/24 11:55 Reviewed MDM - URI/Sore Throat MDM Narrative Medical decision making narrative: Differential diagnosis considered: Benedict virus, strep pharyngitis, allergic rhinitis, upper respiratory tract infection, sinusitis, rhinosinusitis, nasopharyngitis. viral pharyngitis, otitis media, otitis externa, pneumonia, bronchitis, viral cough syndrome, viral syndrome, and influenza.? Exam findings show no acute concerns or changes; patient is non-toxic appearing and is in no distress.? Patient is appropriate for outpatient treatment and follow-up. Medical Records Attestation: I reviewed the patient's medical records. Lab Data Attestation: I reviewed the patient's lab results. Lab results narrative: COVID antigen negative, Influenza A negative, Influenza B negative, strep screen negative, culture sent Labs: Lab Results 01/10/24 Range/Units 13:18 POC Influenza A Ag Negative (Negative) POC Influenza B Ag Negative (Negative) POC SARS CoV-2 Ag Negative (Negative) POC Grp A Strep Screen Negative (Negative) Imaging Data Attestation: I personally reviewed and interpreted this imaging study as follows: My impression: left upper lob pneumonia Radiologist's impression: [facility] [address] [place] [address] XRay Report Signed Patient: Sangeeta Mcknight : 1985 MR#: [id number] Age: 38 Acct:[id number] Loc: [facility] ADM Date: 01/10/24Attending Dr: Ordering Physician: Gladys Garcia APRN Date of Service: 01/10/24 Procedure(s): XR chest 2V Accession Number(s): [id number] cc: Gladys Garcia APRN~ CHEST RADIOGRAPH, PA AND LATERAL CLINICAL HISTORY: cough fevers . COMPARISON: Reference is made to CT examination of the chest dated 01/29/2023 TECHNIQUE: PA and lateral views of the chest. FINDINGS The cardiomediastinal silhouette is unremarkable. Increased density within the left upper lobe for which an early infiltrate is suspected. The remainder the lungs are clear. Visualized osseous structures and soft tissues are unremarkable. IMPRESSION: Early infiltrate within the left upper lobe, as detailed above. Reviewed, dictated and finalized at location A. CTIVE SERGEANT Dictated By: Katie Kenyon MD 01/10/24 1233 Signed By: <Electronically signed by Katie Kenyon MD in OV> Critical Care Time Critical Care Time Critical Care Time: No Discharge Plan Discharge Clinical Impression: Pneumonia Patient Disposition: Home, Self-Care Condition: Stable Instructions: Antibiotic Form, Pneumonia (ED) Additional Instructions: Increase fluids especially juices and water [id number] cough and cold medicine of your choice for your symptoms Prescription cough medicine as directed--caution drowsiness and no driving or alcohol Ibuprofen for fevers Continue your inhaler/nebulizer as directed Steroids as directed--take with food heat to the face 20-30 minutes 4-6 times a day for pain Salt water gargles, throat lozenges or throat sprays as desired Antibiotic as directed--finished the medication If your symptoms persist, change or worsen significantly before you can contact your personal physician then please, without delay, go to the emergency department for further evaluation. Follow-up with PCP in 7-10 days or sooner if needed Prescriptions: New azithromycin 500 mg tablet 500 mg PO DAILY 5 Days Qty: 5 0RF albuterol sulfate 90 mcg/actuation HFA aerosol inhaler 2 puff inhalation QID PRN (Reason: shortness of breath or wheezing) Qty: 6.7 0RF prednisone 20 mg tablet 20 mg PO BID Qty: 10 0RF Rx Instructions: am and early pm with food codeine-guaifenesin 10-100 mg/5 mL liquid 5 ml PO Q6H Qty: 200 0RF No Action venlafaxine 75 mg capsule,extended release 24hr 75 mg PO DAILY lisdexamfetamine [Vyvanse] 30 mg capsule 30 mg PO DAILY estradiol 0.1 mg/24 hr patch semiweekly 1 patch transdermal 2XW Rx Instructions: apply 1 patch for 3 days alternating with 1 patch for 4 days each week for 3 wks per 4-wk cycle meclizine 25 mg tablet 25 mg PO BID PRN (Reason: Dizziness) metoprolol succinate 25 mg tablet extended release 24 hr See Rx Instructions .ROUTE .COMPLEX Qty: 30 5RF Dose Instruction: TAKE 1 TABLET BY MOUTH DAILY Rx Instructions: TAKE 1 TABLET BY MOUTH DAILY Follow-up/Referrals: PHYSICIAN NOT ON STAFF,NONSTAFF [Primary Care Provider] - Stand Alone Forms: Work/School Release IP Time of Disposition: 13:14 Quality Wellborn Coma Scale Eyes: Open Verbal: Oriented and Alert Motor: Follows Commands Becky Coma Total Score: 15
[2024-01-10 13:24] LABS: EDCOVIDSCREEN Negative (Negative); EDINFLUASCREEN Negative (Negative); EDINFLUBSCREEN Negative (Negative); EDSTREPNEGPOS1 Negative (Negative)
== END 2024-01-10 13:20 | disposition home or self-care (01) ==
PROVIDERS: Emergency Provider Registered Nurse
DX: J18.9 Pneumonia, unspecified organism (principal); Z20.822 Contact with and (suspected) exposure to COVID-19; I34.1 Nonrheumatic mitral (valve) prolapse; I48.91 Unspecified atrial fibrillation; Z87.891 Personal history of nicotine dependence; F90.9 Attention-deficit hyperactivity disorder, unspecified type
CPT/HCPCS: 71046; 87081; 87426; 87804; 87880; 99213; G0463

== ENCOUNTER 2024-05-10 11:04 | Outpatient (CLI) | payer OTHER, SELFPAY ==
[2024-05-10 12:21] LABS: Alanine Aminotransferase 23 U/L (6-35); Albumin Level 4.2 g/dL (3.5-5.1); Alkaline Phosphatase 49 U/L (38-126); Anion Gap 6 mmol/L (4-12); Aspartate Amino Transferase 26 U/L (14-36); Bilirubin,Total 0.3 mg/dL (0.2-1.3); Blood Urea Nitrogen 19 mg/dL (7-17); Calcium 8.9 mg/dL (8.4-10.2); Carbon Dioxide 31 mmol/L (22-30); Chloride 102 mmol/L (98-107); Estimated Glomerular Filt Rate > 60; Glucose 88 mg/dL (65-110); Potassium 4.2 mmol/L (3.4-5.0); Sodium 139 mmol/L (137-145)
[2024-05-10 12:25] LABS: Troponin I < 0.012 ng/mL (0.000-0.034)
--- OUTSIDE RECORDS SUMMARY | 2024-05-10 12:58 | XMS_ITS | Data Portability ---
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 Patient will come back in a year unless there are new symptoms. Not available 10/16/2020 14:27:20 11/17/2021 11/17/2021 Time spent in visit is a total of 30 mins with at least 50% of visit consisting of counseling and review of plan of care. Not available 11/20/2021 14:32:50 05/16/2022 05/16/2022 Annual gynecological exam performed. Patient will come back in a year unless there are new symptoms. Not available 05/16/2022 10:41:08 Plan of Treatment Reminders Order Date Submit Date Provider Last Modified By Organization Details Last Modified Time Details Appointments None recorded. Lab TSH, serum or plasma 2021 022 [facility] (Lab), [address], [place], [address], 05:11:45 vitamin D, 25-hydroxy, total, serum 2021 022 [facility] (Lab), [address], [place], [address], 05:11:46 testosteron e, total, serum 082020 [facility] ([facility]), [address], [place], [address], 1 16:52:29 CMP, serum or plasma 2020 [facility] ([facility]), [address], [place], [address], 1 03:34:57 TSH, serum or plasma 2020 [facility] ([facility]), [address], [place], [address], 1 03:34:58 vitamin D, 25-hydroxy, total, serum 2020 [facility] ([facility]), [address], [place], [address], 1 03:34:58 lipid panel, serum [address] -[facility] ([facility]), [address], [place], [address], 1 16:51:51 HbA1c (hemoglobin A1c), blood 2020 [facility] ([facility]), [address], [place], [address], 1 03:34:58 CBC w/ auto diff 2020 [facility] ([facility]), [address], [place], [address], 03:34:56 Referral None recorded. Procedures None recorded. Surgeries None recorded. Imaging US, breast, unilateral, w/ axilla 2022 023 [facility], [address] [place] [address], [place], [address], 3 05:01:41 US, breast, unilateral, w/ axilla [address], [address] [place], [place] [address], [place], [address], 2 17:58:12 MAMMO, diagnostic, digital, bilateral [address], [address] [facility], [place], [address], 2 20:44:13 US, breast, bilateral, complete 2021 022 [facility], [address] [facility], [place], [address], 2 14:13:03 Medication Orders Vivelle-Dot 0.1 mg/24 hr transdermal patch 2022 023 [place] [facility]98123, [address], [place], [place], [id number], 3 10:42:35 CombiPatch 0.05 mg-0.25 mg/24 hr transdermal 2021 022 [email or web address] 1 [facility], [address], [place], [place], [id number], 3 10:29:50 estradiol 1 mg tablet 2020 021 [address] [facility]86101, [address], [place], [place], [id number], 2 10:46:27 Prometrium 100 mg capsule 2020 [email or web address] 1 [facility] #90977, [address], [place], [place], [id number], 3 10:30:43 trazodone 50 mg tablet 2020 [email or web address] 1 [facility] #60797, [address], [place], [place], [id number], 3 10:30:57 Vivelle-Dot 0.1 mg/24 hr transdermal patch 2020 BRAULIO [facility] #91450, [address], [place], [place], [id number], 14:41:56 Prometrium 100 mg capsule 2020 [email or web address] 1 [facility] #77561, [address], [place], [place], [id number], 3 10:30:43 Patient TargetsNo targets recorded. Patient InstructionsNo instructions recorded. Reason for Referral None Reported. Results Created Date Observation Date Name Description Value Unit Range Abnormal Flag Note LastModifiedBy Organization Detail LastModifiedTime 10/17/1910/16/2020 CBC W/DIF F WBC 7.5 10'3/ uL 3.6-10 .2 Not Available [facility] (Lab) [address], [place], [address], 10/17/2020 03:34:56 10/17/19 21 10/16/2020 CBC W/DIF F RBC 4.20 10'6/ uL (based on docume nted legal sex) 4.10-5 .30 Not Available [facility] (Lab) [address], [place], [address], 10/17/2020 03:34:56 10/17/19 21 10/16/2020 CBC W/DIF F HGB 12.9 g/dL (based on docume nted legal sex) 11.9-1 5.8 Not Available [facility] (Lab) [address] [facility], [place], [address], 10/17/2020 03:34:56 10/17/19 21 10/16/2020 CBC W/DIF F HCT 38.8 % (based on docume nted legal sex) 37.4-4 8.3 Not Available [facility] (Lab) [address] [facility], [place], [address], 10/17/2020 03:34:56 10/17/19 21 10/16/2020 CBC W/DIF F MCV 92.0 fL 82.0-9 9.0 Not Available [facility] (Lab) [address] [facility] [address], [place], [address], 10/17/2020 03:34:56 10/17/19 21 10/16/2020 CBC W/DIF F MCH 31.0 pg 27.0-3 3.0 Not Available [facility] (Lab) [address] [facility] [address], [place], [address], 10/17/2020 03:34:56 10/17/19 21 10/16/2020 CBC W/DIF F MCHC 33.0 g/dL 32.0-3 6.0 Not Available [facility] (Lab) [address] [facility] [address], [place], [address], 10/17/2020 03:34:56 10/17/19 21 10/16/2020 CBC W/DIF F RDW 12.0 % 11.0-1 5.0 Not Available [facility] (Lab) [address] [facility] [address], [place], [address], 10/17/2020 03:34:56 10/17/19 21 10/16/2020 CBC W/DIF F plt 226 10'3/ uL 150-45 0 Not Available [facility] (Lab) [address] [facility] [address], [place], [address], 10/17/2020 03:34:56 10/17/19 21 10/16/2020 CBC W/DIF F MPV 10.9 fL 9.8-12 .7 Not Available [facility] (Lab) [address] [facility] [address], [place], [address], 10/17/2020 03:34:56 10/17/19 21 10/16/2020 CBC W/DIF F NRBC's 0.00 % 0 Not Available [facility] (Lab) [address] [facility] [address], [place], [address], 10/17/2020 03:34:56 10/17/19 21 10/16/2020 CBC W/DIF F absolute NRBCs 0.0 10'3/ uL 0 Not Available [facility] (Lab) [address] [facility] [address], [place], [address], 10/17/2020 03:34:56 10/17/19 21 10/16/2020 CBC W/DIF F neutrophils 60.0 % 37.0-7 2.0 Not Available [facility] (Lab) [address] [facility] [address], [place], [address], 10/17/2020 03:34:56 10/17/19 21 10/16/2020 CBC W/DIF F lymphocytes 27.0 % 16.0-4 8.0 Not Available [facility] (Lab) [address] [facility] [address], [place], [address], 10/17/2020 03:34:56 10/17/19 21 10/16/2020 CBC W/DIF F monocytes 9.0 % 4.0-14 .0 Not Available [facility] (Lab) [address] [facility], [place], [address], 10/17/2020 03:34:56 10/17/19 21 10/16/2020 CBC W/DIF F eosinophils 3.0 % 0.0-9. 0 Not Available [facility] (Lab) [address] [facility], [place], [address], 10/17/2020 03:34:56 10/17/19 21 10/16/2020 CBC W/DIF F basophils 1.0 % 0.0-2. 0 Not Available [facility] (Lab) [address] [facility] [address], [place], [address], 10/17/2020 03:34:56 10/17/19 21 10/16/2020 CBC W/DIF F immature granulocytes 0.0 % no define d refere nce range Not Available [facility] (Lab) [address] [facility] [address], [place], [address], 10/17/2020 03:34:56 10/17/19 21 10/16/2020 CBC W/DIF F absolute neutrophils 4.4 10'3/ uL 1.1-6. 0 Not Available [facility] (Lab) [address] [facility] [address], [place], [address], 10/17/2020 03:34:56 10/17/19 21 10/16/2020 CBC W/DIF F absolute lymphocytes 2.0 10'3/ uL 0.7-3. 4 Not Available [facility] (Lab) [address] [facility], [place], [address], 10/17/2020 03:34:56 10/17/19 21 10/16/2020 CBC W/DIF F absolute monocytes 0.7 10'3/ uL 0.3-1. 0 Not Available [facility] (Lab) [address] [facility], [place], [address], 10/17/2020 03:34:56 10/17/19 21 10/16/2020 CBC W/DIF F absolute eosinophils 0.2 10'3/ uL 0.0-0. 6 Not Available [facility] (Lab) [address] [facility] [address], [place], [address], 10/17/2020 03:34:56 10/17/19 21 10/16/2020 CBC W/DIF F absolute basophils 0.1 10'3/ uL 0.0-0. 1 Not Available [facility] (Lab) [address] [facility] [address], [place], [address], 10/17/2020 03:34:56 10/17/19 21 10/16/2020 CBC W/DIF F absolute immature granulocytes 0.00 10'3/ uL 0.00-0 .10 2020 12:12 AM: P indic ates parti al resul ts on a panel have been relea sed. Addit ional resul ts will follo w. 2020 12:12 AM: This resul t has been final verif ied. No addit ional or oh ed resul ts are expec [place]. Not Available [facility] (Lab) [address] [facility] [address], [place], [address], 10/17/2020 03:34:56 10/17/19 21 10/16/2020 LIPID PANEL ,AMA (LDL- CALC) total cholesterol 168 mg/dL 0-199 Not Available [facility] (Lab) [address], [place], [address], 10/17/2020 03:34:57 10/17/19 21 10/16/2020 LIPID PANEL ,AMA (LDL- CALC) triglyceride s 81 mg/dL 0.00-1 50.00 NCEP Refer ence Value s for Trigl yceri christine: Alta l: <150 mg/dL Borde rline High: 150 - 199 mg/dL High: 200 - 499 mg/dL Very High: >/= 500 mg/dL Not Available [facility] (Lab) [address] [place], [address], 10/17/2020 03:34:57 10/17/19 21 10/16/2020 LIPID PANEL ,AMA (LDL- CALC) HDL cholesterol 59 mg/dL 23-92 Not Available [facility] (Lab) [address] [place], [address], 10/17/2020 03:34:57 10/17/19 21 10/16/2020 LIPID PANEL ,AMA (LDL- CALC) LDL cholesterol 93 mg/dL 0-99 Cutof f value s recom chevy d by the Natio nal Tatiana stero l Educa tion Progr am: LAURE ABLE: Tatiana stero l <200 mg/dL LDL <100 mg/dL BORDE RLINE : Tatiana stero l 200-2 39 mg/dL LDL 101-1 59 mg/dL HIGHE R RISK: Tatiana stero l >240 mg/dL LDL >160 mg/dL , HDL <40 mg/dL Not Available [facility] (Lab) [address] [facility], [place], [address], 10/17/2020 03:34:57 10/17/19 21 10/16/2020 LIPID PANEL ,AMA (LDL- CALC) non-HDL cholesterol 109 mg/dL no refere nce range A reaso nable goal for non-H DL tatiana stero l is one that is 30 mg/dL highe r than the LDL tatiana stero l goal. Not Available [facility] (Lab) [address] [facility], [place], [address], 10/17/2020 03:34:57 10/17/19 21 10/16/2020 LIPID PANEL ,AMA (LDL- CALC) chol/HDL ratio 2.8 . 0.0-5. 0 Not Available [facility] (Lab) [address] [place], [address], 10/17/2020 03:34:57 10/17/19 21 10/16/2020 CMP(C OMPRE HENSI VE METAB OLIC PANEL ) sodium 137 mmol/ L 136-14 5 Not Available [facility] (Lab) [address] [place], [address], 10/17/2020 03:34:57 10/17/19 21 10/16/2020 CMP(C OMPRE HENSI VE METAB OLIC PANEL ) potassium 3.8 mmol/ L 3.5-5. 1 Not Available [facility] (Lab) [address] [facility], [place], [address], 10/17/2020 03:34:57 10/17/19 21 10/16/2020 CMP(C OMPRE HENSI VE METAB OLIC PANEL ) chloride 103 mmol/ L 98-107 Not Available [facility] (Lab) [address] [facility], [place], [address], 10/17/2020 03:34:57 10/17/19 21 10/16/2020 CMP(C OMPRE HENSI VE METAB OLIC PANEL ) carbon dioxide 29 mmol/ L 21-31 Not Available [facility] (Lab) [address] [facility], [place], [address], 10/17/2020 03:34:57 10/17/19 21 10/16/2020 CMP(C OMPRE HENSI VE METAB OLIC PANEL ) anion gap 5 mmol/ L 4-13 Not Available [facility] (Lab) [address] [facility], [place], [address], 10/17/2020 03:34:57 10/17/19 21 10/16/2020 CMP(C OMPRE HENSI VE METAB OLIC PANEL ) blood urea nitrogen 18 mg/dL 7-25 Not Available [facility] (Lab) [address], [place], [address], 10/17/2020 03:34:57 10/17/19 21 10/16/2020 CMP(C OMPRE HENSI VE METAB OLIC PANEL ) creatinine 0.84 mg/dL 0.60-1 .30 Not Available [facility] (Lab) [address] [facility] [address], [place], [address], 10/17/2020 03:34:57 10/17/19 21 10/16/2020 CMP(C OMPRE HENSI VE METAB OLIC PANEL ) GFR () 94 mL/mi n/1.7 3_m2 60-300 Not Available [facility] (Lab) [address] [facility] [address], [place], [address], 10/17/2020 03:34:57 10/17/19 21 10/16/2020 CMP(C OMPRE HENSI VE METAB OLIC PANEL ) GFR (others) 77 mL/mi n/1.7 3_m2 60-300 Not Available [facility] (Lab) [address] [facility], [place], [address], 10/17/2020 03:34:57 10/17/19 21 10/16/2020 CMP(C OMPRE HENSI VE METAB OLIC PANEL ) calcium 9.2 mg/dL 8.6-10 .2 Not Available [facility] (Lab) [address] [facility], [place], [address], 10/17/2020 03:34:57 10/17/19 21 10/16/2020 CMP(C OMPRE HENSI VE METAB OLIC PANEL ) glucose 84 mg/dL 70-100 Not Available [facility] (Lab) [address] [facility], [place], [address], 10/17/2020 03:34:57 10/17/19 21 10/16/2020 CMP(C OMPRE HENSI VE METAB OLIC PANEL ) protein, total 6.2 g/dL 6.4-8. 3 low Not Available [facility] (Lab) [address] [facility], [place], [address], 10/17/2020 03:34:57 10/17/19 21 10/16/2020 CMP(C OMPRE HENSI VE METAB OLIC PANEL ) albumin 3.9 g/dL 3.5-5. 0 Not Available [facility] (Lab) [address] [facility] [address], [place], [address], 10/17/2020 03:34:57 10/17/19 21 10/16/2020 CMP(C OMPRE HENSI VE METAB OLIC PANEL ) ALT 14 units /L 9-43 Not Available [facility] (Lab) [address] [facility], [place], [address], 10/17/2020 03:34:57 10/17/19 21 10/16/2020 CMP(C OMPRE HENSI VE METAB OLIC PANEL ) alkaline phosphatase 39 units /L 34-104 Not Available [facility] (Lab) [address] [facility], [place], [address], 10/17/2020 03:34:57 10/17/19 21 10/16/2020 CMP(C OMPRE HENSI VE METAB OLIC PANEL ) AST 17 units /L 13-39 Not Available [facility] (Lab) [address] [facility], [place], [address], 10/17/2020 03:34:57 10/17/19 21 10/16/2020 CMP(C OMPRE HENSI VE METAB OLIC PANEL ) bilirubin, total 0.3 mg/dL 0.2-1. 2 GFR(A frica n Ameri can) is repor [place] as 21% great er than GFR(O ther) . The use of race in kidne y funct ion estim ating equat ions is no longe r recom chevy d and may resul t in overe stima tion. In the near futur e an appro ach that disre maries race will be imple mente d. Not Available [facility] (Lab) [address] [facility], [place], [address], 10/17/2020 03:34:57 10/17/19 21 10/16/2020 TSH, REFLE X FREE T4 TSH 1.64 uIU/m L 0.30-5 .33 Not Available [facility] (Lab) [address] [facility], [place], [address], 10/17/2020 03:34:58 10/17/19 21 10/16/2020 VITAM IN D, 25-OH (TOTA L D2/D3 ) vitamin D, 25-hydroxy, total 39.8 NG/mL 30-80 NOTE: Defic iency : <20 ng/mL Insuf ficie ncy: 20-29 ng/mL Optim um Level : 30-80 ng/mL Possi ble Toxic ity: >80 ng/mL Most patie nts with toxic ity have level s >150 ng/mL . Not Available [facility] (Lab) [address] [place], [address], 10/17/2020 03:34:58 10/17/19 21 10/16/2020 HEMOG LOBIN A1C hemoglobin A1C 4.7 % 0-5.6 The Ameri can Diabe juan antonio Assoc iatio n recom mends that a prima ry goal of thera py shoul d be a HBA1C of < 7% and that physi cians shoul d reeva luate the treat ment regim en in patie nts with HBA1C value s consi stent ly > 8%. <5.7% Alta l 5.7 - 6.4% Incre ased risk for diabe juan antonio >=6.5 % Diagn ostic of diabe juan antonio <7.0% Goal of thera py >8.0% Actio n sugge sted Not Available [facility] (Lab) [address], [place], [address], 10/17/2020 03:34:58 11/18/19 22 11/17/2021 TSH, REFLE X FREE T4 TSH 1.62 uIU/m L 0.30-5 .33 Not Available [facility] [address] [place] [address], [address], 11/18/2021 05:11:45 11/18/19 22 11/17/2021 VITAM IN D, 25-OH (TOTA L D2/D3 ) vitamin D, 25-hydroxy, total 28.9 NG/mL 30.0-1 00.0 low Sugge stive of Defic iency : <20 ng/mL Sugge stive of Insuf ficie ncy: 20-29 ng/mL Sugge stive of Suffi cienc y: 30-10 0 ng/mL Sugge stive of Toxic ity: >150 ng/mL Not Available [facility] [address] [place], [address], 11/18/2021 05:11:46 05/16/19 22 US, breas t, bilat eral, compl ete No observ ation record ed. [address] [facility], [place], [address], 05/27/2021 10:22:34 05/16/19 22 DEXA No observ ation record ed. [address] [facility] [address] [place] [address] [place] [address], [address], 05/20/2021 11:56:51 12/04/1911/21/2021 US, breas t, bilat eral, compl ete No observ ation record ed. [address], [place], [address], 12/09/2021 16:21:31 Result Notes None recorded. Problems Name Problem SNOMED Code Status Onset Date Resolution Date Notes Provider Name and Address Organization Details Recorded Time finding Completed 201410/16/2020 Matern care for oth or susp poor fetl grth, 2nd tri, unsp;Rec orded Elsewher e: No Locat ion: [facility] S ource: EHR Adult Education Professional amisha: N Jacinto ce ID: [id number] Hitesh lable Time: 08:00:00 AM Karolyn [facility] 13:10:47 Normal pregnanc y in multigra sylvester [id number] Completed 201510/16/2020 Encounte r for supervis ion of other normal pregnanc y, third trimeste r;Record ed Elsewher e: No Locat ion: [facility] S ource: EHR Adult Education Professional amisha: N Jacinto ce ID: [id number] Hitesh lable Time: 09:00:00 AM Karolyn [facility] 13:11:45 Lochia finding Completed 201610/16/2020 Encounte r for routine postpart um follow-u p;Record ed Elsewher e: No Locat ion: Guillaume rodriguez [facility] S ource: EHR Adult Education Professional amisha: N Practi ce ID: [id number] Hitesh lable Time: 09:30:00 AM Karolyn carlson [facility] 13:11:30 Cyst of ovary Completed 201710/16/2020 Ovarian cyst;Rec orded Elsewher e: No Locat ion: Amitabuddy jennifer [facility] S ource: EHR Adult Education Professional amisha: N Practi ce ID: [id number] Hitesh lable Time: 03:00:00 PM Karolyn Raza [facility] 13:10:18 finding Completed 201510/16/2020 Matern care for oth or susp poor fetl grth, third tri, unsp;Rec orded Elsewher e: No Locat ion: [facility] jennifer [facility] S ource: EHR Adult Education Professional amisha: N Greggti ce ID: [id number] Hitesh lable Time: 09:30:00 AM Karolyn Raza [facility] 13:10:50 Gestatio n period, 35 weeks [id number] Completed 201510/16/2020 35 weeks gestatio n of pregnanc y;Record ed Elsewher e: No Locat ion: [facility] jennifer [facility] S ource: EHR Adult Education Professional amisha: N Practi ce ID: [id number] Hitesh lable Time: 08:30:00 AM Karolyn carlson [facility] 13:11:12 Gestatio n period, 26 weeks [id number] Completed 201410/16/2020 26 weeks gestatio n of pregnanc y;Record ed Elsewher e: No Locat ion: [facility] jennifer [facility] S ource: EHR Adult Education Professional amisha: N Practi ce ID: [id number] Hitesh lable Time: 08:00:00 AM Karolyn Raza [facility] 13:11:00 Gestatio n period, 31 weeks [id number] Completed 201510/16/2020 31 weeks gestatio n of pregnanc y;Record ed Elsewher e: No Locat ion: Guillaume rodriguez [facility] S ource: EHR Adult Education Professional amisha: N Practi ce ID: [id number] Hitesh lable Time: 08:30:00 AM Karolyn Raza [facility] 1 13:11:06 Dysmenor juan pablo [id number] Completed 201210/16/2020 Dysmenor juan pablo;Rec orded Elsewher e: No Locat ion: Guillaume rodriguez [facility] S ource: EHR Adult Education Professional amisha: N Practi ce ID: [id number] Hitesh lable Time: 02:00:00 PM Karolyn Raza [facility] 13:10:27 Emotiona l state finding Completed 201810/16/2020 Anxiety depressi on;Recor ded Elsewher e: No Locat ion: Guillaume rodriguez [facility] S ource: EHR Adult Education Professional amisha: N Practi ce ID: [id number] Hitesh lable Time: 01:00:00 PM Karolyn Raza [facility] 13:10:[address] Concept Completed 201810/16/2020 Encntr for hydrator exam (general ) (routine ) w/o abn findings ;Recorde d Elsewher e: No Locat ion: Guillaume rodriguez [facility] S ource: EHR Adult Education Professional amisha: N Practi ce ID: [id number] Hitesh lable Time: 01:00:00 PM Karolyn Raza [facility] 1 13:12:29 Gestatio n period, 22 weeks [id number] Completed 201410/16/2020 22 weeks gestatio n of pregnanc y;Record ed Elsewher e: No Locat ion: Guillaume rodriguez [facility] S ource: EHR Adult Education Professional amisha: N Practi ce ID: [id number] Hitesh lable Time: 03:00:00 PM Karolyn Raza [facility] 13:10:56 Bone density finding [id number] Completed 201910/16/2020 osteopen ia;Recor ded Elsewher e: No Locat ion: [facility] S ource: EHR Adult Education Professional amisha: N Practi ce ID: [id number] Hitesh lable Time: 01:15:00 PM Karolyn carlson [facility] 13:10:03 Otitis media Completed 201610/16/2020 Other acute nonsuppu rative otitis media, right ear;Silver rded Elsewher e: No Locat ion: [facility] S ource: EHR Adult Education Professional amisha: N Practi ce ID: [id number] Hitesh lable Time: 02:15:00 PM Karolyn carlson [facility] 13:11:50 Routine antenata l care Completed 201210/16/2020 Supervis ion of other normal pregnanc y;Practi ce ID: 0001 Karolyn carlson [facility] 13:12:17 Delivery normal [id number] Completed 201210/16/2020 Normal delivery ;Practic e ID: [id number] Karolyn Raza [facility] 13:10:21 Single live [id number] Completed 201210/16/2020 Mother with single liveborn ;Practic e ID: 0001 Karolyn carlson [facility] 13:12:23 Female genital organ symptoms [id number] Completed 201210/16/2020 Unspecif ied symptom associat ed with female genital organs;P ractice ID: 0001 Karolyn Raza [facility] 13:10:42 Postpart um care Completed 201210/16/2020 Routine postpart um follow-u p;Practi ce ID: 0001 Karolyn carlson [facility] [facility] 13:11:58 Eruption [id number] Completed 201210/16/2020 Rash and other nonspeci fic skin eruption ;Practic e ID: 0001 Karolyn Raza [facility] 13:10:34 Insertio n of intraute rine contrace ptive device Completed 201210/16/2020 INSERTIO N OF IUD;Prac zehra ID: 0001 Karolyn Raza [facility] 13:11:24 Pregnanc y test negative [id number] Completed 201210/16/2020 Negative Pregnanc y Test;Pra ctice ID: 0001 Karolyn Raza [facility] 13:12:01 Abdomina l pain [id number] Completed 201210/16/2020 Abdomina l pain, unspecif ied site;Pra ctice ID: 0001 Karolyn Raza [facility] 13:09:54 Right lower quadrant pain [id number] Completed 201210/16/2020 Abdomina l pain, right lower quadrant ;Practic e ID: 0001 Karolyn Raza [facility] 13:12:15 Family planning surveill ance Completed 201210/16/2020 Contrace ptive surveill ance, unspecif ied;Prac zehra ID: 0001 Karolyn Raza [facility] 13:10:40 Speciali zed medical examinat ion Completed 201210/16/2020 Routine gynecolo gical examinat ion;Prac zehra ID: 0001 Karolyn Raza [facility] 13:12:31 Screenin g for malignan t neoplasm of cervix Completed 201210/16/2020 Pap Smear;Pr actice ID: 0001 Karolyn Raza null, [facility] 13:12:18 Dysfunct ional uterine bleeding Completed 201210/16/2020 DUB;Prac zehra ID: 0001 Karolyn carlson, [facility] 13:10:25 Irregula r intermen strual bleeding [id number] Completed 201310/16/2020 Metrorrh agia;Pra ctice ID: 0001 Karolyn carlson, [facility] 13:11:25 finding Completed 201410/16/2020 Maternal care for known small-fo r-dates, second trimeste r, fetus 1;Record ed Elsewher e: No Locat ion: [facility] S ource: EHR Adult Education Professional amisha: N Practi ce ID: 0001 Hietsh lable Time: 03:30:00 PM Karolyn Raza [facility] 13:10:48 Gestatio n period, 33 weeks [id number] Completed 201510/16/2020 33 weeks gestatio n of pregnanc y;Record ed Elsewher e: No Locat ion: [facility] S ource: EHR Adult Education Professional amisha: N Practi ce ID: 0001 Hitesh lable Time: 08:30:00 [facility] 13:11:09 Removal of intraute rine device Completed 201310/16/2020 REMOVAL OF IUD;Silver rded Elsewher e: No Locat ion: [facility] S ource: EHR Adult Education Professional amisha: N Practi ce ID: 0001 Hitesh lable Time: 03:15:00 PM Karolyn Raza [facility] 13:12:14 Medical examinat ion for suspecte d conditio n Completed 201410/16/2020 Encounte r for suspecte d problem with growth ruled out;Silver rded Elsewher e: No Locat ion: Guillaume rodriguez [facility] S ource: EHR Adult Education Professional amisha: N Practi ce ID: 0001 Hitesh lable Time: 08:00:00 AM Karolyn carlson, [facility] 13:11:35 Gestatio n period, 30 weeks [id number] Completed 201510/16/2020 30 weeks gestatio n of pregnanc y;Record ed Elsewher e: No [facility] E[facility] Adult Education Professional amisha: N Practi ce ID: 0001 Hitesh lable Time: 08:30:00 AM Karolyn carlson, [facility] 13:11:04 Gestatio n period, 29 weeks [id number] Completed 201410/16/2020 29 weeks gestatio n of pregnanc y;Record ed Elsewher e: No Locat ion: Brien jennifer [facility] S ource: EHR Adult Education Professional amisha: N Practi ce ID: 0001 Hitesh lable Time: 11:00:00 AM Karolyn carlson, [facility] 13:11:03 Pelvic and perineal pain [id number] Completed 201710/16/2020 Pelvic pain;Rec orded Elsewher e: No [facility]: EHR Adult Education Professional amisha: N Practi ce ID: 0001 Hitesh lable Time: 02:00:00 PM Karolyn carlson, [facility] 13:11:52 Increase d frequenc y of urinatio n [id number] Completed 201810/16/2020 Frequenc y of micturit ion;Prac zehra ID: 0001 Karolyn carlson, [facility] 13:11:20 Poor growth affectin g manageme nt [id number] Completed 201210/16/2020 GROWTH POOR SGA;Prac zehra ID: 0001 Karolyn carlson [facility] 13:11:53 Depressi ve disorder [id number] Completed 201810/16/2020 Major depressi ve disorder , single episode, unspecif ied;Prac zehra ID: 0001 Karolyn carlson, [facility] 13:10:23 False labor at or after 37 complete d weeks of gestatio n [id number] Completed 201210/16/2020 Other threaten ed labor, antepart um;Pract ice ID: 0001 Karolyn carlson, [facility] 13:10:38 Uterine size for dates discrepa ncy Completed 201610/16/2020 Uterine size-britni e discrepa ncy, third trimeste r;Record ed Elsewher e: No Locat ion: Guillaume jennifer [facility] S ource: EHR Adult Education Professional amisha: N Practi ce ID: 0001 Hitesh lable Time: 10:30:00 AM Karolyn Raza [facility] 13:12:49 Complica tion related to pregnanc y Completed 201210/16/2020 Weight Gain Poor Antepart um;Recor ded Elsewher e: No Locat ion: [facility] S ource: EHR Adult Education Professional amisha: N Practi ce ID: 0001 Hitesh lable Time: 09:30:00 AM Karolyn Raza [facility] 13:10:[address] Concept Completed 201810/16/2020 Anxiety; Recorded Elsewher e: No Locat ion: [facility] S ource: EHR Adult Education Professional amisha: N Practi ce ID: 0001 Hitesh lable Time: 03:30:00 PM Karolyn carlson [facility] 13:12:24 Low back pain [id number] Completed 201010/16/2020 Lumbago; Recorded Elsewher e: No Locat ion: Guillaume rodriguez [facility] S ource: EHR Adult Education Professional amisha: N Practi ce ID: 0001 Hitesh lable Time: 03:00:00 PM Karolyn Raza [facility] 13:11:32 Gestatio n period, 38 weeks [id number] Completed 201510/16/2020 38 weeks gestatio n of pregnanc y;Record ed Elsewher e: No Locat ion: Amit[facility]uddy jennifer [facility] S ource: EHR Adult Education Professional amisha: N Practi ce ID: 0001 Hitesh lable Time: 11:00:00 AM Karolyn Raza [facility] 13:11:16 Gestatio n period, 36 weeks [id number] Completed 201510/16/2020 36 weeks gestatio n of pregnanc y;Record ed Elsewher e: No Locat ion: [facility] S ource: EHR Adult Education Professional amisha: N Practi ce ID: 0001 Hitesh lable Time: 10:45:00 AM Karolyn Raza [facility] 13:11:13 Uterine size for dates discrepa ncy Completed 201410/16/2020 Uterine size-britni e discrepa ncy, second trimeste r;Record ed Elsewher e: No Locat ion: Brien jennifer [facility] S ource: EHR Adult Education Professional amisha: N Practi ce ID: 0001 Hitesh lable Time: 08:00:00 AM Karolyn carlson [facility] 13:12:48 Sexual function painful Completed 201810/16/2020 Unspecif ied dyspareu gonzalez;Prac zehra ID: 0001 Karolyn Raza [facility] 13:12:21 Procedur e on genitour inary system Completed 201710/16/2020 Encounte r for surgical aftcr followin g surgery on the sys;Prac zehra ID: 0001 Karolyn Raza [facility] 13:12:10 Postoper ative care Completed 201710/16/2020 Encounte r for surgical aftcr followin g surgery on the sys;Prac zehra ID: 0001 Karolyn carlson, [facility] 13:11:56 Procedur e Completed 201710/16/2020 Enctr srvlnc implanta ble subderma l contrace ptive;Pr actice ID: 0001 Karolyn Raza [facility], [facility] 13:12:08 Follicul ar cyst of left ovary [id number] Completed 201710/16/2020 Follicul ar cyst of left ovary;Pr actice ID: 0001 [facility] 13:10:51 Follicul ar cyst of right ovary [id number] Completed 201710/16/2020 Follicul ar cyst of right ovary;Pr actice ID: 0001 Karolyn Raza [facility], [facility] 13:10:53 Endometr iosis of uterus [id number] Completed 201710/16/2020 Endometr iosis of uterus;P ractice ID: 0001 Karolyn Raza [facility], [facility] 13:10:33 Urinary tract infectio us disease [id number] Completed 201210/16/2020 Urinary tract infectio n, site not specifie d;Practi ce ID: 0001 Karolyn Raza [facility], [facility] 13:12:46 Cyst of ovary [id number] Completed 201710/16/2020 Unspecif ied ovarian cyst, left side;Pra ctice ID: 0001 Karolyn Raza [facility], [facility] 13:10:20 Vaginiti s and vulvovag initis Completed 201210/16/2020 Vaginiti s and vulvovag initis, unspecif ied;Prac zehra ID: 0001 Karolyn Raza [facility] 13:12:52 Inflamma tory disorder of breast [id number] Completed 201710/16/2020 Mastitis without abscess; Practice ID: 0001 Karolyn Raza [facility], [facility] 13:11:22 Maribel ry postpart um mood disturba nce [id number] Completed 201710/16/2020 Postpart um mood disturba nce;Prac zehra ID: 0001 Karolyn Raza [facility] 13:12:41 Mastitis associat ed with lactatio n [id number] Completed 201510/16/2020 Postpart um mastitis ;Recorde d Elsewher e: No Locat ion: [facility] S ource: EHR Adult Education Professional amisha: N Greggti ce ID: 0001 Hitesh lable Time: 09:30:00 AM Karolyn Raza [facility] 13:11:33 Pregnanc y test positive [id number] Completed 201003/13/2013 Pregnanc y examinat ion or test, positive result;R ecorded Elsewher e: No Locat ion: [facility] S ource: EHR Adult Education Professional amisha: N Practi ce ID: 0001 Hitesh lable Time: 09:45:00 AM Karolyn Raza [facility] 13:12:02 Gestatio n period, 23 weeks [id number] Completed 201410/16/2020 23 weeks gestatio n of pregnanc y;Record ed Elsewher e: No Locat ion: [facility] S ource: EHR Adult Education Professional amisha: N Practi ce ID: 0001 Hitesh lable Time: 01:00:00 PM Karolyn carlson [facility] 13:10:57 Pregnanc y detectio n examinat ion Completed 201610/16/2020 Encounte r for pregnanc y test, result positive ;Recorde d Elsewher e: No Locat ion: [facility] S ource: EHR Adult Education Professional amisha: N Practi ce ID: 0001 Hitesh lable Time: 09:00:00 AM Karolyn carlson [facility] 13:11:59 anatomy study Completed 201110/16/2020 [facility] SURVEY;P ractice ID: 0001 Karolyn carlson [facility] 13:10:45 Term pregnanc y delivere d [id number] Completed 201610/16/2020 Encounte r for full-ter m uncompli cated delivery ;Practic e ID: 0001 Karolyn carlson, [facility] 13:12:35 Pregnanc y test positive [id number] Completed 201110/16/2020 Positive Pregnanc y Test;Pra ctice ID: 0001 Karolyn carlson [facility] 13:12:02 Oligohyd ramnios with antenata l problem [id number] Completed 201110/16/2020 Oligohyd ramnios, antepart um;Pract ice ID: 0001 Karolyn carlson [facility] 13:11:48 Amenorrh ea [id number] Completed 201110/16/2020 AMENORRH EA;Pract ice ID: 0001 Karolyn carlson [facility] 13:10:00 Threaten ed miscarri age [id number] Completed 201110/16/2020 Threaten ed , antepart um;Pract ice ID: 0001 Karolyn carlson [facility] 13:12:36 Candidal vulvovag initis [id number] Completed 201110/16/2020 Candidia sis of vulva and vagina;P ractice ID: 0001 Karolyn carlson [facility] 13:10:06 Gestatio n period, 37 weeks [id number] Completed 201510/16/2020 37 weeks gestatio n of pregnanc y;Record ed Elsewher e: No Locat ion: [facility] S ource: EHR Adult Education Professional amisha: N Practi ce ID: 0001 Hitesh lable Time: 09:00:00 AM Karolyn Raza [facility] 13:11:15 Gestatio n less than 9 weeks [id number] Completed 201510/16/2020 Less than 8 weeks gestatio n of pregnanc y;Record ed Elsewher e: No Locat ion: [facility] S ource: EHR Adult Education Professional amisha: N Practi ce ID: 0001 Hitesh lable Time: 08:45:00 AM Karolyn carlson [facility] 13:10:55 Antenata l screenin g Completed 201410/16/2020 ANTENATA L SCREENIN G NEC;Silver rded Elsewher e: No Locat ion: [facility] S ource: EHR Adult Education Professional amisha: N Practi ce ID: 0001 Hitesh lable Time: 08:30:00 AM Karolyn Raza [facility] 13:10:01 Premenop ausal menorrha david Completed 201310/16/2020 Premenop ausal menorrha david;Silver rded Elsewher e: No Locat ion: [facility] S ource: EHR Adult Education Professional amisha: N Practi ce ID: 0001 Hietsh lable Time: 11:00:00 AM Karolyn Raza [facility] 13:12:04 Vaginola bial hernia Completed 201510/16/2020 Other specifie d noninfla mmatory disorder s of vagina;R ecorded Elsewher e: No Locat ion: [facility] S ource: EHR Adult Education Professional amisha: N Jacinto ce ID: 0001 Hitesh lable Time: 10:45:00 AM Karolyn Raza [facility] 13:12:54 Gestatio n period, 32 weeks [id number] Completed 201510/16/2020 32 weeks gestatio n of pregnanc y;Record ed Elsewher e: No Locat ion: [facility] S ource: EHR Adult Education Professional amisha: N Greggti ce ID: 0001 Hitesh lable Time: 09:30:00 AM Karolyn Raza [facility] 13:11:07 Secondar y amenorrh ea [id number] Completed 201610/16/2020 Secondar y amenorrh ea;Recor ded Elsewher e: No Locat ion: [facility] S ource: EHR Adult Education Professional amisha: N Greggti ce ID: 0001 Hitesh lable Time: 09:30:00 AM Karolyn Raza [facility] 13:12:20 Ultrason ography Completed 201410/16/2020 Antenata l screenin g for malforma tion using ultrason ics;Silver rded Elsewher e: No Locat ion: [facility] S ource: EHR Adult Education Professional amisha: N Greggti ce ID: 0001 Hitesh lable Time: 09:15:00 AM Karolyn Raza [facility] 13:12:45 Congenit al malforma tion [id number] Completed 201410/16/2020 Antenata l screenin g for malforma tion using ultrason ics;Silver rded Elsewher e: No Locat ion: [facility] S ource: EHR Adult Education Professional amisha: N Practi ce ID: 0001 Hitesh lable Time: 09:15:00 AM Karolyn Raza [facility] 13:10:14 Central nervous system malforma tion in fetus affectin g obstetri [facility] care [id number] Completed 201110/16/2020 Central nervous system malforma tion in fetus, antepart um;Pract ice ID: 0001 Karolyn Raza [facility] 13:10:[address] Concept Completed 201510/16/2020 Encntr for general adult medical exam w/o abnormal findings ;Practic e ID: 0001 Karolyn Raza [facility] 13:12:28 Spotting per vagina in pregnanc y [id number] Completed 201510/16/2020 Spotting complica ting pregnanc y, third trimeste r;Practi ce ID: 0001 Karolyn Raza [facility] 13:12:33 Threaten ed prematur e labor - not delivere d [id number] Completed 201110/16/2020 Threaten ed prematur e labor, antepart um;Pract ice ID: 0001 Karolyn Raza [facility] 13:12:38 Female genital organ symptoms [id number] Completed 201003/13/2013 Unspecif ied symptom associat ed with female genital organs;R ecorded Elsewher e: No Locat ion: [facility] S ource: EHR Adult Education Professional amisha: N Practi ce ID: 0001 Hitesh lable Time: 03:00:00 PM Karolyn Raza [facility] 13:10:[address] Concept Completed 201610/16/2020 Supervis ion of other high risk pregnanc ies, second trimeste r;Record ed Elsewher e: No Locat ion: [facility] S ource: EHR Adult Education Professional amisha: N Practi ce ID: 0001 Hitesh lable Time: 10:45:00 AM Karolyn carlson [facility] 13:12:26 Acute vaginiti s [id number] Completed 201510/16/2020 Acute vaginiti s;Practi ce ID: 0001 Karolyn carlson, [facility] 13:09:58 Gestatio n period, 34 weeks [id number] Completed 201510/16/2020 34 weeks gestatio n of pregnanc y;Record ed Elsewher e: No Locat ion: [facility] S ource: EHR Adult Education Professional amisha: N Practi ce ID: 0001 Hitesh lable Time: 09:30:00 AM Karolyn Raza [facility] 13:11:10 Threaten ed miscarri age [id number] Completed 201003/13/2013 Threaten ed , antepart um;Recor ded Elsewher e: No Locat ion: [facility] S ource: EHR Adult Education Professional amisha: N Practi ce ID: 0001 Hitesh lable Time: 02:45:00 PM Karolyn carlson [facility] 13:12:37 Primigra sylvester [id number] Completed 201110/16/2020 Supervis ion of normal first pregnanc y;Practi ce ID: 0001 Karolyn carlson, [facility] 13:12:06 Complica tion of pregnanc y, childbir th and/or puerperi um [id number] Completed 201610/16/2020 Oth diseases and conditio ns compl preg/chl dbrth;Pr actice ID: 0001 Karolyn carlson, [facility] 13:12:43 Gestatio n period, 25 weeks [id number] Completed 201610/16/2020 25 weeks gestatio n of pregnanc y;Practi ce ID: 0001 Karolyn Raza [facility] 13:10:59 Proteinu evie [id number] Completed 201110/16/2020 Proteinu evie;Prac zehra ID: 0001 Karolyn Raza [facility] 13:12:12 Leukorrh ea [id number] Completed 201110/16/2020 Leukorrh ea, not specifie d as infectiv e;Practi ce ID: 0001 Karolyn Raza [facility] 13:11:28 Mild hypereme sis-not delivere d [id number] Completed 201003/13/2013 Mild hypereme sis gravidar um, antepart um;Recor ded Elsewher e: No Locat ion: [facility] S ource: EHR Adult Education Professional amisha: N Practi ce ID: 0001 Hitesh lable Time: 03:30:00 PM Karolny Raza [facility] 13:11:37 Uses IUD (intraut erine device) contrace ption [id number] Completed 201210/16/2020 Surveill ance of intraute rine contrace ptive device;R ecorded Elsewher e: No Locat ion: [facility] S ource: EHR Adult Education Professional amisha: N Practi ce ID: 0001 Hitesh lable Time: 01:30:00 PM Karolyn Raza [facility] 13:11:27 Uterine size for dates discrepa ncy [id number] Completed 201410/16/2020 UTERINE SIZE CHRISTINE-ANTE PAR;Silver rded Elsewher e: No Locat ion: [facility] S ource: EHR Adult Education Professional amisha: N Practi ce ID: 0001 Hitesh lable Time: 09:15:00 AM Karolyn Raza [facility] 13:12:51 Dysuria [id number] Completed 201410/16/2020 Dysuria; Recorded Elsewher e: No Locat ion: Brien jennifer [facility] S ource: EHR Adult Education Professional amisha: N Practi ce ID: 0001 Hitesh lable Time: 03:30:00 PM Karolyn Raza [facility], [facility] 13:10:28 Mild hypereme sis-not delivere d [id number] Completed 201410/16/2020 Mild hypereme sis gravidar um, antepart um;Recor ded Elsewher e: No Locat ion: [facility] S ource: EHR Adult Education Professional amisha: N Practi ce ID: 0001 Hitesh lable Time: 11:30:00 AM Karolyn Raza [facility] 13:11:37 Amenorrh ea [id number] Completed 201003/13/2013 Absence of menstrua tion;Rec orded Elsewher e: No [facility] S [facility]: EHR Adult Education Professional amisha: N Practi ce ID: 0001 Hitesh lable Time: 09:45:00 AM Karolyn Raza [facility] 13:10:00 Blood leukocyt e number above referenc e range [id number] Completed 201410/16/2020 Elevated white blood cell count, unspecif ied;Prac zehra ID: 0001 Karolyn Raza [facility], [facility] 13:11:18 Gestatio n period, 28 weeks [id number] Completed 201410/16/2020 28 weeks gestatio n of pregnanc y;Record ed Elsewher e: No Locat ion: [facility] S ource: EHR Adult Education Professional amisha: N Practi ce ID: 0001 Hitesh lable Time: 10:56:00 AM Karolyn Raza [facility] 13:11:01 Mild hypereme sis-not delivere d [id number] Completed 201003/13/2013 Mild hypereme sis gravidar um, antepart um;Recor ded Elsewher e: No Locat ion: Guillaume rodriguez [facility] S ource: EHR Adult Education Professional amisha: N Practi ce ID: 0001 Hitesh lable Time: 02:45:00 PM Karolyn Raza [facility], [facility] 13:11:38 Routine antenata l care Completed 201103/13/2013 Supervis ion of other normal pregnanc y;Record ed Elsewher e: No Locat ion: [facility] S ource: EHR Adult Education Professional amisha: N Practi ce ID: 0001 Hitesh lable Time: 09:30:00 AM Karolyn Raza [facility], [facility] 13:12:17 Pregnanc y, childbir th and puerperi um finding Completed 201510/16/2020 Oth pregnanc y related conditio ns, third trimeste r;Practi ce ID: 0001 Karolyn Raza [facility], [facility] 13:10:10 Postpart um care Completed 201103/13/2013 Routine postpart um follow-u p;Record ed Elsewher e: No Locat ion: [facility] S ource: EHR Adult Education Professional amisha: N Practi ce ID: 0001 Hitesh lable Time: 09:15:00 AM Karolyn Raza [facility] 13:11:58 Evaluati on finding Completed 201810/16/2020 Hematuri a, unspecif ied;Silver rded Elsewher e: No Locat ion: [facility] S ource: EHR Adult Education Professional amisha: N Practi ce ID: 0001 Hitesh lable Time: 02:00:00 PM Karolyn Raza [facility], [facility] 13:10:36 anatomy study Completed 201103/13/2013 [facility] SURVEY;R ecorded Elsewher e: No Locat ion: [facility] S ource: EHR Adult Education Professional amisha: N Practi ce ID: 0001 Hitesh lable Time: 09:00:00 AM Karolyn Raza [facility] 13:10:45 Breast lump [id number] Completed 201010/16/2020 Lump or mass in breast;P ractice ID: 0001 Karolyn Raza [facility] 13:10:05 Toxic effect of venom [id number] Completed 201010/16/2020 Toxic effect of venom;Pr actice ID: 0001 Karolyn Raza [facility] 13:12:40 Abnormal products of concepti on Completed 201010/16/2020 Other abnormal product of concepti on;Pract ice ID: 0001 Karolyn Raza [facility] 13:09:56 Contusio n of abdomina l wall Completed 201010/16/2020 Contusio n of abdomina l wall;Pra ctice ID: 0001 Karolyn Raza [facility] 13:10:16 Problem Notes None recorded. Procedures Surgical History Date Name Laterality Status Provider Name and Address Organization Details Recorded Time 03/13/19 completed Karolyn Raza [facility] 10/16/2020 14:31:48 01/18/20 18 laparoscopic total abdominal hysterectomy and bilateral salpingo-oophore ctomy completed Siri Montesinos [facility] 05/16/2022 10:09:16 11/16/19 18 Date of Last Pap Smear completed Siri Montesinos [facility] 05/16/2022 11:48:57 02/22/19 05 laparoscopy completed Gudelia Cosme [facility] 07/07/2019 12:58:57 Imaging Results Imaging Date Name Status LastModified by Organiz ation Details LastModified Time 05/15/2021 US, breast, bilateral, complete completed [place] [id number] [facility] [address], [address], 05/27/2021 10:22:34 05/15/2021 DEXA completed [address] [facility] [address] [place] [address] [place] [address], [id number], 05/20/2021 11:56:51 11/21/2021 US, breast, bilateral, complete completed [place] [id number] [address], [address], 12/09/2021 16:21:31 Procedure Notes None recorded. Medical Equipment None Reported. Allergies Allergen ID Allergen Name Allergen Category Reaction Reaction Severity Criticality Documentation Date Start Date Code Code System Note Provider Name and Address Organization Details Recorded Time 11213 Iodine and/or iodine compound (substanc e) Not available Not available Not available Not available 02/09/2020 10323 6004 SNOMED React ion: GI probl ems; Comme nt: [facility]at [facility]; Not Available [facility] 0 14:17:51 59000 sertralin e medicatio n Not available Not available Not available 10/16/2020 36583 RxNorm Karolyn Raza [facility] 14:29:02 72646 venlafaxi ne medicatio n Not available Not available Not available 10/16/2020 73874 RxNorm Karolyn Raza [facility] 14:29:08 32807 escitalop dereje Not available Not available Not available Not available 10/16/2020 01797 8 RxNorm Karolyn Raza [facility] 14:29:19 609 acetamino phen medicatio n Not available Not available Not available 07/07/2019 161 RxNorm Gudelia Cosme null, [facility] 0 12:57:17 610 Product containin g penicilli n (product) medicatio n Not available Not available Not available 07/07/2019 40758 8001 SNOMED Gudelia Cosme [facility], [facility] 0 12:57:26 611 iodine medicatio n Not available Not available Not available 07/07/2019 5933 RxNorm Karolyn Raza [facility], [facility] 1 14:29:23 612 prochlorp erazine medicatio n Not available Not available Not available 07/07/2019 8704 RxNorm Gudelia Cosme [facility], [facility] 0 12:57:43 Medications Name Sig Start Date Stop Date Status Note LastModified by Organization Details LastModified Time estradiol 0.1 mg/24hr pttw 06/08 completed Not Available Not Available Not Available estradiol 2 mg tabs 06/08 completed Not Available Not Available Not Available cephalexi n 500 mg caps 10/16 completed Not Available Not Available Not Available metoprolo l succinate er 25 mg tb24 10/16 completed Not Available Not Available Not Available methylpre dnisolone dose pack 4 mg tbpk 10/16 completed Not Available Not Available Not Available progester one 200 mg caps 10/16 completed Not Available Not Available Not Available omeprazol e 20 mg cpdr 10/16 completed Not Available Not Available Not Available venlafaxi ne hcl er 37.5 mg cp24 10/16 completed Not Available Not Available Not Available afluria quad inj 2018-10/16 completed Not Available Not Available Not Available ondansetr on hydrochlo ride 4 mg tabs 05/16 completed Not Available Not Available Not Available tramadol hcl 50 mg tabs 05/15 completed Not Available Not Available Not Available azithromy jennie 250 mg tabs 10/16 completed Not Available Not Available Not Available sumatript an succinate 25 mg tabs 08/25 /2021 completed Not Available Not Available Not Available sertralin e hcl 50 mg tabs 10/16 completed Not Available Not Available Not Available vivelle-d ot 0.1 mg/24hr pttw 11/17 completed Not Available Not Available Not Available dicyclomi ne hydrochlo ride 10 mg caps 10/16 completed Not Available Not Available Not Available premarin 1.25 mg tabs 05/15 completed Not Available Not Available Not Available prednison e 20 mg tabs 10/16 completed Not Available Not Available Not Available ketorolac trometham ine 10 mg tabs 10/16 completed Not Available Not Available Not Available omeprazol e 40 mg cpdr 11/26 completed Not Available Not Available Not Available venlafaxi ne hydrochlo ride er 75 mg cp24 10/16 completed Not Available Not Available Not Available triamcino lone acetonide 0.1 % oint 10/16 completed Not Available Not Available Not Available cyclobenz aprine 10 mg tablet take 1 tablet by oral route 2 times every day 05/28 completed Prescrib ed Elsewher e: No Locat ion: [facility] odify By: graciela Purdy r DateTime : 10/26/19 15 09:00:00 AM Not Available Not Available Not Available clindamyc in HCl 300 mg capsule TAKE 1 CAPSULE BY MOUTH EVERY 8 HOURS FOR 7 DAYS 05/16 completed Not Available Not Available Not Available trazodone 50 mg tablet TAKE 1/2 TABLET BY MOUTH AT BEDTIME 05/16 completed Not Available Not Available Not Available ibuprofen 800 mg tablet TAKE 1 TABLET BY MOUTH 2 OR 3 TIMES DAILY WITH FOOD 05/16 completed Not Available Not Available Not Available Lotrisone 1 %-0.05 % topical cream apply by topical route 2 times every day for 2 weeks to the affected and surround ing areas of skin in the morning and evening 12/12 completed Prescrib ed Elsewher e: No Locat ion: [facility] odify By: omedical Encount er DateTime : 11/30/19 12 01:25:43 PM Not Available Not Available Not Available Keflex 500 mg capsule take 1 capsule (500MG) by oral route every 6 hours 11/09 completed Prescrib ed Elsewher e: No Locat ion: Guillaume rodriguez [facility] odify By: lona schumacher DateTime : 08/27/19 12 04:30:00 PM Not Available Not Available Not Available ondansetr on HCl 4 mg tablet TAKE 1 TABLET BY MOUTH EVERY 8 HOURS NEEDED FOR NAUSEA OR VOMITING 05/16 completed Not Available Not Available Not Available Compazine 10 mg tablet take 1 tablet by oral route 3 times every day 05/28 completed Prescrib ed Elsewher e: No Locat ion: Guillaume rodriguez [facility] odify By: [email or web address] Encounte r DateTime : 09/22/19 15 11:30:00 AM Not Available Not Available Not Available estradiol 0.1 mg/24 hr semiweekl y transderm al patch APPLY 1 PATCH TOPICALL Y TO THE SKIN 2 TIMES EVERY WEEK active Not Available Not Available No t Available Zithromax Z-Gabriel 250 mg tablet take 2 tablet by oral route every day for 1 day then 1 tablet (250 mg) by oral route once daily for 4 days 07/05 completed Prescrib ed Elsewher e: No Locat ion: Guillaume rodriguez [facility] odify By: [email or web address] Encounte r DateTime : 07/02/19 17 02:15:00 PM Not Available Not Available Not Available Diflucan 150 mg tablet take 1 tablet by oral route once 02/25 completed Prescrib ed Elsewher e: No Locat ion: Guillaume rodriguez [facility] odify By: [email or web address] z Encoun ter DateTime : 12/18/19 16 10:45:00 AM Not Available Not Available Not Available Tamiflu 75 mg capsule take 1 capsule (75MG) by oral route 2 times every day 03/10 completed Prescrib ed Elsewher e: No Locat ion: Guillaume rodriguez [facility] odify By: tgingric h Encoun ter DateTime : 03/04/19 13 12:54:08 PM Not Available Not Available Not Available sulfameth oxazole 800 mg-trimet hoprim 160 mg tablet TAKE 1 TABLET BY MOUTH EVERY 12 HOURS 05/16 completed Not Available Not Available Not Available omeprazol e 40 mg capsule,d elayed release TAKE 1 CAPSULE BY MOUTH TWICE DAILY active Not Available Not Available No t Available Reglan 10 mg tablet take 1 tablet (10MG) by oral route 4 times every day 30 minutes before meals and at bedtime 12/05 completed Prescrib ed Elsewher e: No Locat ion: [facility] jennifer [facility] odify By: [email or web address] Ruth ter DateTime : 02/20/20 16 03:17:31 PM Not Available Not Available Not Available tramadol 50 mg tablet TK 1 TO 2 TS PO Q 6 H PRN P 10/16 completed Not Available Not Available Not Available chlorprom azine 10 mg tablet take 1 tablet by oral route every 4-6 as needed for nausea 05/28 completed Prescrib ed Elsewher e: No Locat ion: [facility] odify By: graciela Purdy r DateTime : 09/25/19 15 10:24:00 AM Not Available Not Available Not Available Macrobid 100 mg capsule take 1 capsule by oral route every 12 hours with food 12/27 completed Prescrib ed Elsewher e: No Locat ion: [facility] jennifer [facility] odify By: [email or web address] yani Ruth ter DateTime : 03/30/19 19 01:56:18 PM Not Available Not Available Not Available Procardia 10 mg capsule take 1 capsule (10MG) by oral route 4 times every day 08/26 completed Prescrib ed Elsewher e: No Locat ion: [facility] odify By: omedical Encount er DateTime : 05/07/19 12 01:55:42 PM Not Available Not Available Not Available erythromy jennie 250 mg tablet take 1 tablet by oral route every 6 hours 11/24 completed Prescrib ed Elsewher e: No Locat ion: [facility] odify By: amkmarcos Rodriguez ncounter DateTime : 10/16/19 18 02:00:00 PM Not Available Not Available Not Available propranol ol 10 mg tablet TAKE 1 TABLET BY MOUTH TWICE DAILY 05/16 completed Not Available Not Available Not Available calcium 600 mg (as calcium carbonate 1,500 mg) tablet TAKE 1 TABLET BY MOUTH IN THE MORNING AND IN THE EVENING 05/16 completed Not Available Not Available Not Available Zofran 8 mg tablet take 1 tablet by oral route every 8 hours 11/24 completed Prescrib ed Elsewher e: No [facility] odify By: amkuharlene cortes DateTime : 04/02/19 17 08:45:00 AM Not Available Not Available Not Available Metrogel Vaginal 0.75 % (37.5 mg/5 gram) insert 1 applicat orful by vaginal route every day at bedtime for 5 nights 02/25 completed Prescrib ed Elsewher e: No Locat ion: [facility] odify By: caprice z Faraz ter DateTime : 12/23/19 16 12:05:28 PM Not Available Not Available Not Available amitripty line 25 mg tablet TAKE 1 TABLET BY MOUTH NIGHTLY 10/16 completed Not Available Not Available Not Available omeprazol e 10 mg capsule,d elayed release 10/16 completed Not Available Not Available Not Available methocarb rafa 750 mg tablet TAKE 2 TABLETS BY MOUTH THREE TIMES DAILY FOR 2 DAYS THEN TAKE 1 TABLET BY MOUTH FOUR TIMES DAILY FOR 60 DAYS 05/16 completed Not Available Not Available Not Available estradiol 1 mg tablet TAKE 1 TABLET BY MOUTH EVERY DAY 11/17 completed Not Available Not Available Not Available Zoloft 50 mg tablet take 1 tablet by oral route every day 04/05 completed Prescrib ed Elsewher e: No Locat ion: [facility] odify By: [email or web address] Encounte r DateTime : 12/28/19 19 01:00:00 PM Not Available Not Available Not Available amitripty line 10 mg tablet 05/16 completed Not Available Not Available Not Available Flagyl 500 mg tablet Take one tablet PO BID x 7d 05/12 completed Prescrib ed Elsewher e: No Locat ion: [facility] odify By: omedical Encount er DateTime : 05/07/19 13 09:07:45 AM Not Available Not Available Not Available meclizine 25 mg tablet TAKE 1 TABLET BY MOUTH THREE TIMES DAILY NEEDED FOR DIZZINES S active Not Available Not Available No t Available Imitrex 6 mg/0.5 mL subcutane ous solution inject 0.5 millilit er by subcutan eous route once; may repeat in 1 hour if pain returns/ increase s in severity ; (max2 doses/24 hours) 10/16 completed Prescrib ed Elsewher e: Yes Loca tion: Guillaume rodriguez [facility] odify By: graciela marcum DateTime : 04/05/19 01:15:00 PM Not Available Not Available Not Available CombiPatc h 0.05 mg-0.25 mg/24 hr transderm al APPLY 1 PATCH TOPICALL Y TO THE SKIN 2 TIMES A WEEK DIRECTED 05/16 completed Not Available Not Available Not Available estradiol 2 mg tablet TAKE 1 TABLET BY MOUTH EVERY DAY 11/17 completed Not Available Not Available Not Available mupirocin 2 % topical ointment APPLY NASALLY TWICE DAILY FOR 14 DAYS 05/16 completed Not Available Not Available Not Available estradiol 0.5 mg tablet take 1 tablet by oral route every day 02/23 completed Prescrib ed Elsewher e: No Locat ion: Guillaume rodriguez [facility] odify By: fercho cortes DateTime : 01/21/20 18 10:23:21 AM Not Available Not Available Not Available metoprolo l succinate ER 25 mg tablet,ex tended release 24 hr TAKE 1/2 TABLET BY MOUTH DAILY active Not Available Not Available No t Available ergocalci ferol (vitamin D2) 1,250 mcg (50,000 unit) capsule TAKE 1 CAPSULE BY MOUTH EVERY WEEK active Not Available Not Available No t Available albuterol sulfate HFA 90 mcg/actua tion aerosol inhaler INHALE 2 PUFFS BY MOUTH EVERY 4 HOURS NEEDED FOR WHEEZING OR COUGH active Not Available Not Available No t Available Terazol 7 0.4 % vaginal cream insert 1 applicat orful by vaginal route every day for 7 days at bedtime 09/01 completed Prescrib ed Elsewher e: No Locat ion: Guillaume rodriguez [facility] odify By: tgingric h Encoun ter DateTime : 08/27/19 12 04:30:00 PM Not Available Not Available Not Available ondansetr on 4 mg disintegr ating tablet DISSOLVE 1 TABLET ON THE TONGUE EVERY 8 HOURS NEEDED FOR NAUSEA OR VOMITING active Not Available Not Available No t Available Fioricet 50 mg-325 mg-40 mg tablet take 1 - 2 tablet by oral route every 4 hours as needed not to exceed 6 tablets per 24hrs 08/26 completed Prescrib ed Elsewher e: No [facility] odify By: omedical Encount er DateTime : 12/27/19 11 01:30:00 PM Not Available Not Available Not Available doxycycli ne hyclate 100 mg tablet take 1 tablet (100MG) by oral route every day 04/07 completed Prescrib ed Elsewher e: No Locat ion: [facility] odify By: jose manuel Rodriguez ncounter DateTime : 03/13/19 14 11:00:00 AM Not Available Not Available Not Available estradiol 0.1 mg/24 hr weekly transderm al patch apply 1 patch by transder mal route every week 02/23 completed Prescrib ed Elsewher e: No Locat ion: [facility] odify By: fercho Rodriguez ncounter DateTime : 01/19/20 18 09:56:50 AM Not Available Not Available Not Available Phenergan 25 mg/mL injection solution inject 1 millilit er by intramus cular route once, may repeat in 2 hours 06/06 completed Prescrib ed Elsewher e: Yes Loca tion: [facility] odify By: graciela marcum DateTime : 05/29/19 16 08:45:00 AM Not Available Not Available Not Available progester one micronize d 100 mg capsule TAKE 1 CAPSULE BY MOUTH EVERY DAY AT BEDTIME 05/16 completed Not Available Not Available Not Available methylphe nidate ER 27 mg tablet,ex tended release 24 hr TAKE 1 TABLET BY MOUTH EVERY DAY IN THE MORNING active Not Available Not Available No t Available Depo-Prov era 150 mg/mL intramusc ular syringe inject 1 millilit er (150MG) by intramus cular route every 3 months 04/07 completed Prescrib ed Elsewher e: No Locat ion: Guillaume rodriguez [facility] odify By: jose manuel cortes DateTime : 12/30/19 13 03:44:59 PM Not Available Not Available Not Available escitalop dereje 10 mg tablet take 1 tablet by oral route every day 12/27 completed Prescrib ed Elsewher e: No Locat ion: Guillaume rodriguez [facility] odify By: arden cortes DateTime : 02/23/19 19 03:30:00 PM Not Available Not Available Not Available atomoxeti ne 40 mg capsule TAKE 1 CAPSULE BY MOUTH DAILY 05/16 completed Not Available Not Available Not Available cyclobenz aprine 5 mg tablet TAKE 1 TABLET BY MOUTH AFTER WORK 10/16 completed Not Available Not Available Not Available Premarin 1.25 mg tablet TAKE 1 TABLET BY MOUTH EVERY DAY 11/17 completed Not Available Not Available Not Available metoprolo l tartrate 25 mg tablet TAKE 1/2 TABLET BY MOUTH TWICE DAILY 05/16 completed Not Available Not Available Not Available calcium 11/26 completed Not Available Not Available Not Available omeprazol e 10/16 completed Not Available Not Available Not Available meclizine 10/16 completed Not Available Not Available Not Available Vyvanse 30 mg capsule TAKE 1 CAPSULE BY MOUTH DAILY active Not Available Not Available No t Available cholecalc iferol (vitamin D3) 50 mcg (2,000 unit) capsule TAKE ONE CAPSULE BY MOUTH DAILY 05/16 completed Not Available Not Available Not Available 10 mg-[address] by Topical route every USE ASS NEEDED WITH INTERCOU RSE 05/28 completed Prescrib ed Elsewher e: Yes Loca tion: Guillaume rodriguez [facility] odify By: smcchristiano marcum DateTime : 06/09/19 14 09:45:00 AM Not Available Not Available Not Available Triveen-D uo DHA 29 mg-1 mg-400 mg oral pack take 1 by Oral route once for 30 days 01/15 completed Prescrib ed Elsewher e: No Locat ion: Guillaume rodriguez [facility] odify By: arden cortes DateTime : 12/18/19 16 10:45:00 AM Not Available Not Available Not Available Nexplanon 68 mg subdermal implant 02/23 completed Prescrib ed Elsewher e: Yes Loca tion: Guillaume rodriguez [facility] odify By: fercho arringtonuntsenthil DateTime : 11/25/19 03:00:00 PM Not Available Not Available Not Available DIRECTOR OF BANDS-PNV-DH A 28 mg iron-1 mg-200 mg capsule take 1 capsule by oral route every day 02/23 completed Prescrib ed Elsewher e: No Locat ion: Guillaume rodriguez [facility] odify By: amramirez Rodriguez ncountsenthil DateTime : 11/05/19 12:30:51 PM Not Available Not Available Not Available Kapspargo Sprinkle 25 mg capsule,e xtended release take 1 capsule by oral route every day 10/16 completed Prescrib ed Elsewher e: Yes Loca tion: [facility] jennifer [facility] odify By: graciela marcum DateTime : 04/05/19 01:15:00 PM Not Available Not Available Not Available Vitals Date Recorded Body height Body mass index (BMI) Body weight Systolic blood pressure Diastolic blood pressure Provider Name and Address Organization Details Last Updated DateTime 10/16/2020 151.13 cm 26.2 kg/m2 11182.19 g 103 mm[Hg] 68 mm[Hg] [facility] 14:28:29 Date Recorded Body height Body mass index (BMI) Body weight Systolic blood pressure Diastolic blood pressure Provider Name and Address Organization Details Last Updated DateTime 11/26/2020 151.13 cm 26.2 kg/m2 86134.19 g 115 mm[Hg] 68 mm[Hg] [facility] 10:53:55 Date Recorded Body height Body mass index (BMI) Body weight Systolic blood pressure Diastolic blood pressure Provider Name and Address Organization Details Last Updated DateTime 05/02/2021 151.13 cm 26.6 kg/m2 18806.66 g 120 mm[Hg] 68 mm[Hg] Camila Denny [facility]- [address], [place], [address], [facility] 2 10:19:45 Date Recorded Body height Systolic blood pressure Diastolic blood pressure Provider Name and Address Organization Details Last Updated DateTime 11/17/2021 151.13 cm 120 mm[Hg] 68 mm[Hg] Karolyn Raza [facility] 11/17/2021 10:45:57 Date Recorded Body height Body mass index (BMI) Body weight Systolic blood pressure Diastolic blood pressure Provider Name and Address Organization Details Last Updated DateTime 05/16/2022 151.13 cm 27.6 kg/m2 56118.34 g 103 mm[Hg] 70 mm[Hg] Siri Montesinos [facility] 3 10:28:25 Social History Question Answer Notes LastModified by Organizat ion Details LastModified Time Tobacco Smoking Status Never Smoker Karolyn Raza [facility], [facility] 11/17/2021 10:46:10 Do You Have An Advance Directive? No Information not available 10/16/2020 What Is Your Level Of Alcohol Consumption? Occasional Information not available 10/16/2020 How Many Years Have You Consumed Alcohol? 14 Information not available 10/16/2020 Are You Blind Or Do You Have Difficulty Seeing? No Information not available 10/16/2020 What Is Your Level Of Caffeine Consumption? Heavy Information not available 10/16/2020 In The 14 Days Before Symptom Onset, Have You Had Close Contact With A Laboratory-confir med COVID-19 While That Case Was Ill? No Information not available 10/16/2020 Have You Been To An Area Known To Be High Risk For COVID-19? No Information not available 10/16/2020 Are You Deaf Or Do You Have Serious Difficulty Hearing? No Information not available 10/16/2020 What Type Of Diet Are You Following? REGULAR Information not available 10/16/2020 What Is The Highest Grade Or Level Of School You Have Completed Or The Highest Degree You Have Received? 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 Yes Information not available 10/16/2020 Do You Use Protection During Sex? No Information not available 10/16/2020 Do You Use Your Seat Belt Or Car Seat Routinely? Yes Information not available 10/16/2020 Do You Have Smoke And Carbon Monoxide Detectors In Your Home? Yes Information not available 10/16/2020 How Much Tobacco Do You Smoke? No Information not available 10/16/2020 Do You Feel Stressed (tense, Restless, Nervous, Or Anxious, Or Unable To Sleep At Night)? [id number] Information not available 10/16/2020 Do You Use Any Illicit Or Recreational Drugs? No Information not available 10/16/2020 Do You Use Sunscreen Routinely? No Information not available 11/26/2020 Have You Used IV Drugs? No Information not available 10/16/2020 Sex: Unknown Functional Status Question Answer Note LastModified by Organizat ion Details LastModified Time Do you have difficulty walking or climbing stairs? No [email or web address] Information not available 05/16/2022 Are you able to walk? YESWOREST Information not available 10/16/2020 Are you able to care for yourself? Yes [email or web address] Information not available 05/16/2022 Do you have difficulty dressing or bathing? No [email or web address] Information not available 05/16/2022 What is your exercise level? Occasional Information not available 10/16/2020 Mental Status None recorded. Family History Relationship Description Onset Age of this Age Resolved Age Notes LastModified by Organization Details LastModified Time Father Human immunodefici ency virus infection [email or web address] Not available 2019 12:59:57 Notes:Father: HIV Medical History Condition Response Allergies (Food, seasonal, environmental ) Y Other N Breast Cancer N Drug/Latex Allergies/Reactions Y Blood Transfusion N Lung Disease N Dermatologic Disorders N Defects or Inherited Disease N Breast Problem N Gestational Diabetes N Hematologic disorders N Anesthesia Complications N History of STI N Deep Vein Thrombosis N Polycystic ovary syndrome N Anxiety Disorder Y Autoimmune disease N Arthritis N Infertility N Polyps N Acid Reflux (GERD) Y History of abnormal pap N Cancer N Stroke N Varicosities N Neurologic/Epilepsy Y Endometriosis N High Cholesterol N Headaches Y Fibromyalgia N Kidney Disease N Heart Problems Y Kidney or Bladder Problems N Thyroid Problems N GI Problems N Eating Disorder N Anemia N Art (IVF or FET) N Psychiatric Illness Y Ovarian Cancer N Diabetes N Pulmonary (TB, Asthma) N Hepatitis/Liver Disease N No Past Medical History N Eczema N Urinary Tract Infection N Abuse/Domestic Violence N Asthma Y Trauma/Violence N Depression/ depression Y Heart Disease N Pre-Eclampsia N Hypertension Y Osteoporosis N Thrombophilias N Gynecological History Statement/Question Response Abnormal Pap N Date of LMP 01/17/2018 On BCP's at Conception? N N STIs/STDs N Current Control Method Hysterectom y 03/13/2019 Age at First Child 21 If Post Menopausal, Age at Menopause 32 Sexually Active? Y Age of first menstrual cycle 9 Date of Last Pap Smear 11/15/2017 Sexual Problems? Y Y Obstetrics History GPAL:G 7 P 7 0 1 7 Type Value Multiple Births 1 Full Term 7 Spontaneous 1 Living 7 Total 7 Past Encounters Encounter ID Performer Location Encounter Start Date Encounter Closed Date Diagnosis/Indication Diagnosis SNOMED-CT Code Diagnosis ICD10 Code Diagnosis Note [id number] Shadi Keith MD [facility] [address] [address] 07/07/2019 12:39:28 07/11/2019 16:24:26 Menopausal symptom [id number] N95.1 This patient is a 34-year-ol d female presents for menopausal symptoms. She had total laparoscop ic hysterecto my bilateral salpingo-o ophorectom y within the last year. She is having hot flashes that are not controlled by her current hormone replacemen t therapy. She is taking 2 mg of estradiol. He has mitral valve prolapse with mild to moderate regurgitat ion. We considered oral contracept benjamin pills, however, there is some increased risk with her cardiac status. We agreed to try Prempro. We spent 15 minutes face-to-fa ce in a virtual visit. [id number] [facility] [address],[place] [address] 10/16/2020 14:10:18 10/16/2020 16:58:51 Gynecologic examination [id number] Z01.419 Take Calcium with Vitamin D 1200mg daily if not receiving in daily diet. It is strongly advised to have an annual flu shot and up can obtain at most pharmacies . If you have not had a TDap shot in the last 10 years you should obtain one as well. Discussed with patient & provided with informatio n regarding Gardisil vaccine to prevent the 4 strains for HPV that cause cervical cancer if under age 26. Encourage safe sexual practices, to use condoms and limit partners if not already in a monogamous relationsh ip. Do monthly self breast exams. Have mammogram yearly or every other year depending on family history. BRCA testing is now available for patients with strong genetic history of female cancer. If interested contact the office. Engage in daily exercise of low impact aerobic exercise 45-60 minutes 4-5 times weekly. Avoid tobacco and illicit drugs as well as using moderation with alcohol intake less than 1-2 8 oz beverages daily. This lifestyle behavior pattern will lead to less health conditions and longer life span. If BMI greater than 25 weight watchers or dietary consult advised. Patient received above instructio ns, and questions have been answered. If you have any questions please call or respond to this email. Patient was made aware of the patient portal and may obtain a paper copy of today's plan if desired. Pap/hpv d/c per asccp unless otherwise indicated d/t full hysterecto my for non-cancer indication s.Mammo n/aSTD declined Menopausal symptom 06315 002 N95.1 Having issues with HRT.Feels she is having more break through hot flashes, issues with losing weight, and trouble sleeping.W e agreed to update labs & change her regimen.RT O x 6-8wks Finding ways to control stress will also greatly help. Adult heal th examination [id number] Z00.00 [id number] Camila Denny [facility] [address],[facility] [address] 11/26/2020 09:52:29 11/26/2020 11:22:07 Hormone replacement therapy [id number] Z79.890 Consider addition of low dose SSRI moving forward as well. Trial of bijuva x 8wks Time spent in visit is a total of 15 mins with at least 50% of visit consisting of counseling and review of plan of care.Addit ional precaution daylin measures were taken to minimize potential exposure to the Covid-19 virus during this patient s visit, including available hand bone process operator upon arrive, temperatur e check and being asked a series of screening questions. All staff wore face coverings during this encounter, as well as provided additional cleaning and sanitizing of all surfaces, including counter-to ps, pens, chairs, door handles, light switches, etc, prior to and following the patient s visit. 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 Counseled on medication R/B's, Most common side effects, & use. All questions [place]. [id number] Camila Denny [facility] [address],[place] [address] 05/02/2021 09:36:26 05/02/2021 10:31:27 Mastodynia of bilateral breasts [id number] 1514844 N64.4 Somewhat fibrocysti c breast tissue that are painful bilaterall y.Imaging indicated. Will schedule. Time spent in visit is a total of 15 mins with at least 50% of visit consisting of counseling and review of plan of care.Addit ional precaution daylin measures were taken to minimize potential exposure to the Covid-19 virus during this patient s visit, including available hand bone process operator upon arrive, temperatur e check and being asked a series of screening questions. All staff wore face coverings during this encounter, as well as provided additional cleaning and sanitizing of all surfaces, including countertop s, pens, chairs, door handles, light switches, etc, prior to and following the patient s visit. [id number] Camila Denny [facility] [address],[facility] [address] 11/17/2021 10:37:07 11/18/2021 16:18:53 Pain of left breast [id number] N64.4 Consider breast specialist referral if imaging is wnlUnable to tolerate evening primrose oilConside r that her HRT is also causing some of these sx's Menopausal symptom 97739 002 N95.1 Still with hot flashes/ni ght sweatsWork s nightsStre ssed home/workW e agreed to change in her HRT to see if we can gain improvemen t in these issues.Ivett re that the above can trigger these sx's RTO x 6-8wks med check Vitamin D deficiency [id number] 46829 E55.9 Update this value. [id number] Camila Denny , [facility] [address],[place] [address] 05/16/2022 10:09:29 05/16/2022 10:50:46 Hormone replacement therapy [id number] Z79.890 Doing well on patch as long as it is name brand by [facility].RIGO requestedR x sent x 1yr Gynecologi c examination 38550071 Z01.419 Take Calcium with Vitamin D 1200mg daily if not receiving in daily diet. It is strongly advised to have an annual flu shot and up can obtain at most pharmacies . If you have not had a TDap shot in the last 10 years you should obtain one as well. Discussed with patient & provided with informatio n regarding Gardisil vaccine to prevent the 4 strains for HPV that cause cervical cancer if under age 26. Encourage safe sexual practices, to use condoms and limit partners if not already in a monogamous relationsh ip. Do monthly self breast exams. Have mammogram yearly or every other year depending on family history. BRCA testing is now available for patients with strong genetic history of female cancer. If interested contact the office. Engage in daily exercise of low impact aerobic exercise 45-60 minutes 4-5 times weekly. Avoid tobacco and illicit drugs as well as using moderation with alcohol intake less than 1-2 8 oz beverages daily. This lifestyle behavior pattern will lead to less health conditions and longer life span. If BMI greater than 25 weight watchers or dietary consult advised. Patient received above instructio ns, and questions have been answered. If you have any questions please call or respond to this email. Patient was made aware of the patient portal and may obtain a paper copy of today's plan if desired. Pap/hpv d/c per asccp unless otherwise indicated d/t full hysterecto my for non-cancer indication s.Mammo due in 6mos left breastSTD declinedPC P UTD visits Pain of left breast 1010 [id number] N64.4 F/U x 6mos to 1yr imaging sent & faxed Health Concerns Section Related Observation LastModified by Organization Detai ls LastModified Time None Recorded Concern Status LastModified by Organization Details LastModified Time None Recorded Advance Directives Directive N: Payers Encounter Date Sequence Insurance Name Policy Number Policy Burgos Covered Member ID Burgos Member ID Guarantor Name 10/16/2020 3 [place] [facility] Sangeeta Childersarbey [id number] Sangeeta Rodriguez [place] 10/16/2020 1 [facility] [id number] Sangeeta Rodriguez Kearbey [id number] Sangeeta Rodriguez [place] 11/26/2020 3 [place] [facility] Sangeeta Rodriguez [place] [id number] Sangeeta Rodriguez [place]bey 11/26/2020 1 [facility] [id number] Sangeeta Rodriguez K[place]bey [id number] Sangeeta Rodriguez [place] 05/02/2021 2 [place] [facility] Sangeeta Kearbey [id number] Sangeeta Rodriguez [place]bey 05/02/2021 1 [place] [id number] Sangeeta Rodriguez Kearbey [id number] Sangeeta Rodriguez Kearbey 11/17/2021 1 [employer] ([place] [id number] Sangeeta Rodriguez K[place] [id number] Sangeeta Rodriguez [place] 11/17/2021 2 [place] [facility] Sangeeta Kearbey [id number] Sangeeta Rodriguez [place] 05/16/2022 1 [employer] [place] [id number] Sangeeta Rodriguez [place] [id number] Sangeeta Rodriguez [place] 05/16/2022 2 [place] [facility] Sangeeta Childersarbey [id number] Sangeeta Rodriguez [place] Notes Date Note Type Note Provider Name and Address Organization Details Recorded Time 10/16/2020 text/html Annual GYNReport ed bypatient.Menstrual cycle:Hx of full hyst for non-cancer indications. Urinary symptoms:No hematuria; No incontinence Vulva:No genital lesion Vagina:Normal vaginal discharge Breast:No breast pain; No breast lump; No nipple discharge Current Contraception:Monoga mous relationship Sexual complaints:No sexual complaints; No pain during intercourse; Normal libido Menopausal Symptoms:No menopausal symptoms; Normal vaginal lubrication Psychological symptoms:No depression; No anxiety; No PMDD Preventive measures:Encourage self breast examination; Encourage regular exercise; Encourage no tobacco use; Encourage regular mammograms starting age 40 Camila Denny [facility] [address], [place], [address], [facility] 10/16/2020 14:54:13 11/26/2020 text/html Here for med shahida ck of vivelle patch coupled with Prometrium.She does not feel it is helping with hot flashes & still having issues with sleep.She does work odd hours/nights sometimes.This causes a lot of stress/anxiety at times.Feels it might induce more climacteric sx's.Neg night sweats.Neg suicidial thoughts/ideations.N eg depressionFeels frustrated by issues with HRT therapy.Feels frustrated by having had to have a hysterectomy. Camila Denny [facility] [address], [place], [address], [facility] 11/26/2020 11:20:57 05/02/2021 text/html Breast PainRepor [place] bypatient.Location:b ilateral Onset/Timing:>1 month Duration:constant Quality:throbbing; stabbing Severity:mild Context:post menopause (Surgical); family history of breast cancer Associated Symptoms:no fever; no chills; no skin redness; no nipple discharge; no sore nipples; breasts not full, sore, unable to express milk; no breast swelling; no arm pain; no arm swelling; no chest pain; no malaise;breast lump Camila Denny [facility] [address], [place], [address], [facility] 05/02/2021 10:22:31 11/17/2021 text/html Breast PainRepor [place] bypatient.Location:l eft Onset/Timing:>1 month Duration:constant Quality:dull; aching Severity:moderate Context:sexually active (Full hysterectomy); performs breast self examination; current estrogen use Associated Symptoms:no fever; no chills; no skin redness; no nipple discharge; no sore nipples; breasts not full, sore, unable to express milk; no breast swelling; no arm pain; no arm swelling; no chest pain; no malaise; no breast lump Camila Denny, [facility] [address], [place], [address], [facility] 11/20/2021 14:33:35 OBGyn Episode Ob Episode Information Episode Created Date Number of Fetuses Patient Bloodtype Patient rh Status Prepregnancy Weight lbs Domestic Partner Domestic Partner Phone Father Name Billing Auditor Status 07/10/19 20 1 DELETED Marcelino Calculation Initial Marcelino Date Initial Exam Date Initial Exam Provider Initial Ultrasound Date Last Menstrual Period Date Ultra Sound Weeks Gestation 0 Eighteen To Twenty Week Marcelino Update Ultra Sound Date Fundal Height At Umbil Quickening Date Ultra Sound Latest Weeks Gestation Final Marcelino Confirmed By Final Mareclino Confirmed Date Final Marcelino Date Ultra Sound Latest Days Gestation 0 0 Menstrual History Last Menstrual Date Menses Monthly On Bcp Conception Prior Menses Frequency Hcg Plus Date Menarche Onset Age Delivery Information Delivery Date Delivery Type Labor Anesthesia Weeks Gestation Incision Type Labor Labor Length Hrs Delivered By Post Complications Tubal Sterilization Discharge Date Comments 7 Discharge Information Feeding Method Contraceptive Method Maternal HG B and HCT Levels Ob Episode Information Episode Created Date Number of Fetuses Patient Bloodtype Patient rh Status Prepregnancy Weight lbs Domestic Partner Domestic Partner Phone Father Name Billing Auditor Status 07/11/19 20 1 CLOSED Fetus Data First Name Last Name Admitted to NICU Weight (g) Sex Living Outcome Pediatric Complications Fetus ID Race Codes Race Delivery Type 2636.27 6704 M Full Term 1565 Vaginal Delivery Marcelino Calculation Initial Marcelino Date Initial Exam Date Initial Exam Provider Initial Ultrasound Date Last Menstrual Period Date Ultra Sound Weeks Gestation 0 Eighteen To Twenty Week Marcelino Update Ultra Sound Date Fundal Height At Umbil Quickening Date Ultra Sound Latest Weeks Gestation Final Marcelino Confirmed By Final Marcelino Confirmed Date Final Marcelino Date Ultra Sound Latest Days Gestation 0 0 Menstrual History Last Menstrual Date Menses Monthly On Bcp Conception Prior Menses Frequency Hcg Plus Date Menarche Onset Age Delivery Information Delivery Date Delivery Type Labor Anesthesia Weeks Gestation Incision Type Labor Labor Length Hrs Delivered By Post Complications Tubal Sterilization Discharge Date Comments 7 39 Discharge Information Feeding Method Contraceptive Method Maternal HG B and HCT Levels Ob Episode Information Episode Created Date Number of Fetuses Patient Bloodtype Patient rh Status Prepregnancy Weight lbs Domestic Partner Domestic Partner Phone Father Name Billing Auditor Status 07/11/19 20 1 CLOSED Fetus Data First Name Last Name Admitted to NICU Weight (g) Sex Living Outcome Pediatric Complications Fetus ID Race Codes Race Delivery Type 3203.26 6704 F Full Term 1569 Vaginal Delivery Marcelino Calculation Initial Marcelino Date Initial Exam Date Initial Exam Provider Initial Ultrasound Date Last Menstrual Period Date Ultra Sound Weeks Gestation 0 Eighteen To Twenty Week Marcelino Update Ultra Sound Date Fundal Height At Umbil Quickening Date Ultra Sound Latest Weeks Gestation Final Marcelino Confirmed By Final Marcelino Confirmed Date Final Marcelino Date Ultra Sound Latest Days Gestation 0 0 Menstrual History Last Menstrual Date Menses Monthly On Bcp Conception Prior Menses Frequency Hcg Plus Date Menarche Onset Age Delivery Information Delivery Date Delivery Type Labor Anesthesia Weeks Gestation Incision Type Labor Labor Length Hrs Delivered By Post Complications Tubal Sterilization Discharge Date Comments 7 38 Discharge Information Feeding Method Contraceptive Method Maternal HG B and HCT Levels Ob Episode Information Episode Created Date Number of Fetuses Patient Bloodtype Patient rh Status Prepregnancy Weight lbs Domestic Partner Domestic Partner Phone Father Name Billing Auditor Status 07/11/19 20 1 CLOSED Fetus Data First Name Last Name Admitted to NICU Weight (g) Sex Living Outcome Pediatric Complications Fetus ID Race Codes Race Delivery Type 2551.45 5 M Full Term 1570 Vaginal Delivery Marcelino Calculation Initial Marcelino Date Initial Exam Date Initial Exam Provider Initial Ultrasound Date Last Menstrual Period Date Ultra Sound Weeks Gestation 0 Eighteen To Twenty Week Marcelino Update Ultra Sound Date Fundal Height At Umbil Quickening Date Ultra Sound Latest Weeks Gestation Final Marcelino Confirmed By Final Marcelino Confirmed Date Final Marcelino Date Ultra Sound Latest Days Gestation 0 0 Menstrual History Last Menstrual Date Menses Monthly On Bcp Conception Prior Menses Frequency Hcg Plus Date Menarche Onset Age Delivery Information Delivery Date Delivery Type Labor Anesthesia Weeks Gestation Incision Type Labor Labor Length Hrs Delivered By Post Complications Tubal Sterilization Discharge Date Comments 2 37 Discharge Information Feeding Method Contraceptive Method Maternal HG B and HCT Levels Ob Episode Information Episode Created Date Number of Fetuses Patient Bloodtype Patient rh Status Prepregnancy Weight lbs Domestic Partner Domestic Partner Phone Father Name Billing Auditor Status 07/11/19 1 CLOSED Fetus Data First Name Last Name Admitted to NICU Weight (g) Sex Living Outcome Pediatric Complications Fetus ID Race Codes Race Delivery Type 2834.95 M Full Term 1568 Vaginal Delivery Marcelino Calculation Initial Marcelino Date Initial Exam Date Initial Exam Provider Initial Ultrasound Date Last Menstrual Period Date Ultra Sound Weeks Gestation 0 Eighteen To Twenty Week Marcelino Update Ultra Sound Date Fundal Height At Umbil Quickening Date Ultra Sound Latest Weeks Gestation Final Marcelino Confirmed By Final Marcelino Confirmed Date Final Marcelino Date Ultra Sound Latest Days Gestation 0 0 Menstrual History Last Menstrual Date Menses Monthly On Bcp Conception Prior Menses Frequency Hcg Plus Date Menarche Onset Age Delivery Information Delivery Date Delivery Type Labor Anesthesia Weeks Gestation Incision Type Labor Labor Length Hrs Delivered By Post Complications Tubal Sterilization Discharge Date Comments 9 37 Discharge Information Feeding Method Contraceptive Method Maternal HG B and HCT Levels Ob Episode Information Episode Created Date Number of Fetuses Patient Bloodtype Patient rh Status Prepregnancy Weight lbs Domestic Partner Domestic Partner Phone Father Name Billing Auditor Status 07/10/19 20 1 DELETED Marcelino Calculation Initial Marcelino Date Initial Exam Date Initial Exam Provider Initial Ultrasound Date Last Menstrual Period Date Ultra Sound Weeks Gestation 0 Eighteen To Twenty Week Marcelino Update Ultra Sound Date Fundal Height At Umbil Quickening Date Ultra Sound Latest Weeks Gestation Final Marcelino Confirmed By Final Marcelino Confirmed Date Final Marcelino Date Ultra Sound Latest Days Gestation 0 0 Menstrual History Last Menstrual Date Menses Monthly On Bcp Conception Prior Menses Frequency Hcg Plus Date Menarche Onset Age Delivery Information Delivery Date Delivery Type Labor Anesthesia Weeks Gestation Incision Type Labor Labor Length Hrs Delivered By Post Complications Tubal Sterilization Discharge Date Comments 3 Discharge Information Feeding Method Contraceptive Method Maternal HG B and HCT Levels Ob Episode Information Episode Created Date Number of Fetuses Patient Bloodtype Patient rh Status Prepregnancy Weight lbs Domestic Partner Domestic Partner Phone Father Name Billing Auditor Status 07/10/19 1 DELETED Marcelino Calculation Initial Marcelino Date Initial Exam Date Initial Exam Provider Initial Ultrasound Date Last Menstrual Period Date Ultra Sound Weeks Gestation 0 Eighteen To Twenty Week Marcelino Update Ultra Sound Date Fundal Height At Umbil Quickening Date Ultra Sound Latest Weeks Gestation Final Marcelino Confirmed By Final Marcelino Confirmed Date Final Marcelino Date Ultra Sound Latest Days Gestation 0 0 Menstrual History Last Menstrual Date Menses Monthly On Bcp Conception Prior Menses Frequency Hcg Plus Date Menarche Onset Age Delivery Information Delivery Date Delivery Type Labor Anesthesia Weeks Gestation Incision Type Labor Labor Length Hrs Delivered By Post Complications Tubal Sterilization Discharge Date Comments 6 Discharge Information Feeding Method Contraceptive Method Maternal HG B and HCT Levels Ob Episode Information Episode Created Date Number of Fetuses Patient Bloodtype Patient rh Status Prepregnancy Weight lbs Domestic Partner Domestic Partner Phone Father Name Billing Auditor Status 07/11/19 20 1 CLOSED Fetus Data First Name Last Name Admitted to NICU Weight (g) Sex Living Outcome Pediatric Complications Fetus ID Race Codes Race Delivery Type 2551.45 5 F Full Term 1567 Vaginal Delivery Marcelino Calculation Initial Marcelino Date Initial Exam Date Initial Exam Provider Initial Ultrasound Date Last Menstrual Period Date Ultra Sound Weeks Gestation 0 Eighteen To Twenty Week Marcelino Update Ultra Sound Date Fundal Height At Umbil Quickening Date Ultra Sound Latest Weeks Gestation Final Marcelino Confirmed By Final Marcelino Confirmed Date Final Marcelino Date Ultra Sound Latest Days Gestation 0 0 Menstrual History Last Menstrual Date Menses Monthly On Bcp Conception Prior Menses Frequency Hcg Plus Date Menarche Onset Age Delivery Information Delivery Date Delivery Type Labor Anesthesia Weeks Gestation Incision Type Labor Labor Length Hrs Delivered By Post Complications Tubal Sterilization Discharge Date Comments 6 39 Discharge Information Feeding Method Contraceptive Method Maternal HG B and HCT Levels Ob Episode Information Episode Created Date Number of Fetuses Patient Bloodtype Patient rh Status Prepregnancy Weight lbs Domestic Partner Domestic Partner Phone Father Name Billing Auditor Status 07/11/19 20 1 CLOSED Fetus Data First Name Last Name Admitted to NICU Weight (g) Sex Living Outcome Pediatric Complications Fetus ID Race Codes Race Delivery Type 2608.15 4 F Full Term 1566 Vaginal Delivery Marcelino Calculation Initial Marcelino Date Initial Exam Date Initial Exam Provider Initial Ultrasound Date Last Menstrual Period Date Ultra Sound Weeks Gestation 0 Eighteen To Twenty Week Marcelino Update Ultra Sound Date Fundal Height At Umbil Quickening Date Ultra Sound Latest Weeks Gestation Final Marcelino Confirmed By Final Marcelino Confirmed Date Final Marcelino Date Ultra Sound Latest Days Gestation 0 0 Menstrual History Last Menstrual Date Menses Monthly On Bcp Conception Prior Menses Frequency Hcg Plus Date Menarche Onset Age Delivery Information Delivery Date Delivery Type Labor Anesthesia Weeks Gestation Incision Type Labor Labor Length Hrs Delivered By Post Complications Tubal Sterilization Discharge Date Comments 3 38 Discharge Information Feeding Method Contraceptive Method Maternal HG B and HCT Levels Ob Episode Information Episode Created Date Number of Fetuses Patient Bloodtype Patient rh Status Prepregnancy Weight lbs Domestic Partner Domestic Partner Phone Father Name Billing Auditor Status 05/17/19 23 1 CLOSED Fetus Data First Name Last Name Admitted to NICU Weight (g) Sex Living Outcome Pediatric Complications Fetus ID Race Codes Race Delivery Type , Spontane ous [id number] Marcelino Calculation Initial Marcelino Date Initial Exam Date Initial Exam Provider Initial Ultrasound Date Last Menstrual Period Date Ultra Sound Weeks Gestation 0 Eighteen To Twenty Week Marcelino Update Ultra Sound Date Fundal Height At Umbil Quickening Date Ultra Sound Latest Weeks Gestation Final Marcelino Confirmed By Final Marcelino Confirmed Date Final Marcelino Date Ultra Sound Latest Days Gestation 0 0 Menstrual History Last Menstrual Date Menses Monthly On Bcp Conception Prior Menses Frequency Hcg Plus Date Menarche Onset Age Delivery Information Delivery Date Delivery Type Labor Anesthesia Weeks Gestation Incision Type Labor Labor Length Hrs Delivered By Post Complications Tubal Sterilization Discharge Date Comments 1 Discharge Information Feeding Method Contraceptive Method Maternal HG B and HCT Levels
== END 2024-05-10 11:05 | disposition home or self-care (01) ==
LOC: ANHLAB 11:06
PROVIDERS: Visit Provider Internal Medicine Cardiovascular Disease
DX: R07.9 Chest pain, unspecified (principal)
CPT/HCPCS: 36415; 80053; 84443; 84484

== ENCOUNTER 2024-05-13 13:38 | Emergency (ER) | payer OTHER, SELFPAY ==
--- NOTE | ~2024-05-13 | CT_ITS ---
EXAMINATION: CT abdomen pelvis wo con DATE: 05/13/2024 14:33 INDICATION: Right lower quadrant abdominal pain with localized peritonitis. Status post total hystere ctomy and . TECHNIQUE: Computed tomography (CT) of the abdomen and pelvis was performed without intravenous contr ast. Automated exposure control and iterative reconstruction technique were employed. Exam dose: 314 .03 mGy-cm total exam DLP. COMPARISON: 08/11/2021 CT abdomen pelvis FINDINGS: The lung bases are clear. Normal heart size. No pericardial or pleural effusion. The liver, spleen, gallbladder, pancreas, bile ducts, pancreatic duct, adrenal glands and kidneys are unremarkable. No urinary tract calculus or hydroureteronephrosis. Normal caliber of the abdominal aorta. No intraperitoneal or retroperitoneal or pelvic mass lesion or adenopathy or ascites. Status post hysterectomy. The urinary bladder is unremarkable. No bowel obstruction, bowel wall thickening, pneumatosis or intraperitoneal free air. The appendix is not clearly defined on the current examination compared to 08/11/2021 when it was appa rent in the lower posterior right pelvic area in the presacral space. However, no inflammatory change s or dilated appendix are noted in the right lower quadrant pelvic area. Included skeletal structures are unremarkable. IMPRESSION: No acute abdominal or pelvic finding Appendix is not clearly defined in contrast to 08/11/2021, at which time it was evident in the lower r ight posterior pelvic area the presacral space. However, no evidence of a dilated appendix or inflamm atory changes noted in this region on the current examination. Reviewed, dictated and finalized at [facility]. Reviewed, dictated and finalized at [facility]. IMPRESSION: No acute abdominal or pelvic finding Appendix is not clearly defined in contrast to 08/11/2021, at which time it was evident in the lower right posterior pelvic area the presacral space. However, no evidence of a dilated appendix or inflammatory changes noted in this region on the current examination.
[2024-05-13 13:39] VITALS: BP 132/78; PULSE 85; RESP 16; TEMP 36.6; O2SAT 99
--- OUTSIDE RECORDS SUMMARY | 2024-05-13 13:40 | XMS_ITS | Clinical Summary ---
Author Organization [facility] Medical Office Building B Address [address] [place] [address] Care Team Providers Care Radarman Name Role Phone Jaquelin Nuñez NP Primary Care Provider + Allergies Active Allergy Reactions Criticality Noted Date Comments Iodinated Contrast Media Nausea & Vomiting Low Ioversol Penicillins Medications ibuprofen (ADVIL,MOTRIN) 600 mg tablet take 1 tablet by oral route 3 times every day with food 0 0 6 Active Additional Information Patient not taking.Reported on 01/09/2019 HYDROcodone-kellee taminophen (NORCO) 5-325 mg per tablet take 1 tablet by oral route every 6 hours as needed for pain 0 0 6 Active Additional Information Patient not taking.Reported on 01/09/2019 docusate sodium (COLACE) 100 mg capsule take 1 capsule (100MG) by oral route every day at bedtime as needed 30 0 6 Active Additional Information Patient not taking.Reported on 01/09/2019 docusate sodium (COLACE) 100 mg capsule take 1 capsule (100MG) by oral route every day at bedtime as needed 30 0 6 Active Additional Information Patient not taking.Reported on 01/09/2019 estradiol (VIVELLE-DOT) 0.1 mg/24 hr Vivelle-Dot 0.1 mg/24 hr transdermal patch UNW AND JUNIOR 1 PA TO SKIN TWO TIMES A WEEK 9 Active Active Problems Problem Noted Date Diagnosed Date Mitral valve prolapse 01/14/2015 Stopped smoking 01/14/2015 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 15 Immunizations Immunization Administration Dates Next Due PPD TEST 12/16/2023 Surgical History Surgery Date Site/Laterality Comments OTHER SURGICAL HISTORY labroscopy CARPAL TUNNEL RELEASE Carpal tunnel release HYSTERECTOMY w/ ovaries and tubes removed Medical History Medical History Date Comments Hx Other Medical abnl heartbeat; Comments: JNS 07/23/2015 - Depression Depression Anxiety Mitral valve prolapse PVC's (premature ventricular contractions) Family History Medical History Relation Name Comments Diabetes Other 1 Family history of Diabetes mellitus; Other Other 2 Family history of HIV; Alcohol abuse Other 3 Family history of Alcoholism; Hypertension Other 4 Family history of Hypertension; Kidney disease Other 5 Family histor y of Renal disease; Relation Name Status Comments Other 1 Other 2 Other 3 Other 4 Other 5 Social History Tobacco Use Types Packs/Day Years Used Date Smoking Tobacco: Never Assessed Comments No Sex and Gender Information Value Date Recorded Sex Assigned at Not on file 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 Gender Identity Not on file Sexual Orientation Not on file Obstetrics History Last Filed Vital Signs Vital Sign Reading Time Taken Comments Blood Pressure 126/68 12/16/2023 6:00 PM CDT Pulse 68 12/16/2023 6:00 PM CDT Temperature 36.4 C (97.6 F) 12/16/2023 6:00 PM CDT Respiratory Rate 16 12/16/2023 6:00 PM CDT Oxygen Saturation 98% 12/16/2023 6:00 PM CDT Inhaled Oxygen Concentration - - Weight 54.4 kg (120 lb) 12/16/2023 6:00 PM CDT Height 154.9 cm (5' 1 ) 12/16/2023 6:00 PM CDT Body Mass Index 22.67 12/16/2023 6:00 PM CDT Plan of Treatment Health Maintenance Due Date Last Done Comments Depression Screening 1985 Hepatitis C Screening 1985 Varicella Vaccines (1 of 2 - 13+ 2-dose series) 1998 Regular Well Visit/Exam 18-64 04/29/2003 Covid-19 Vaccine ( season) 2023 08/30/2020, 08/06/2020 Influenza Vaccine (#1) 2023 2, 12/23/2020, 11/09/2018, Additional history exists DTaP/Tdap/Td Vaccine (3 - Td or Tdap) 07/20/2026 07/20/2016, 03/12/2015 Pneumococcal vaccine <65 Aged Out 11/16/2013 No longer eligible based on patient's age to complete this topic Hepatitis B Screening Completed 07/07/2014 , 07/07/2014, 11/16/2013, Additional history exists HPV Vaccines Aged Out No longer eligi ble based on patient's age to complete this topic Insurance [employer] [facility] [employer] Address: [address] [place] [address] [facility] OTHER Address: [facility] [address] [place] [address] [facility] [employer] [facility] [employer] Care Teams Radarman Relationship Specialty Start Date End Date Jaquelin Nuñez NP [address] [address] PCP - General 03/24/19
--- OUTSIDE RECORDS SUMMARY | 2024-05-13 13:40 | XMS_ITS ---
Author Organization [facility] Address [address] [place] [address] Phone Care Team Providers Care Dupligraph Operator Name Role Phone Jaquelin Nuñez APRN, CNP Primary Care Provid er [facility] Status:Enrolled (Active) Start date:03/22/2024 Enrollment date:03/22/2024 Related social drivers of health:Intimate Partner Violence, Social Connections, Tobacco Use, Stress, Physical Activity Continued Care and Services Coordination
--- OUTSIDE RECORDS SUMMARY | 2024-05-13 13:40 | XMS_ITS | Clinical Summary ---
Author Organization [facility] Address [address] [place] [id number] Care Team Providers Care Legal Recruiter Name Role Phone Unavailable Primary Care Provider Unavailabl e Social History Tobacco Use Types Packs/Day Years Used Date Smoking Tobacco: Never Assessed Comments Unknown Sex and Gender Information Value Date Recorded Sex Assigned at Not on file Legal Sex Female 7:00 PM CDT Gender Identity Not on file Sexual Orientation Not on file Plan of Treatment Health Maintenance Due Date Last Done Comments Cervical Cancer Screening Pa p Smear (Age 30 to 64) Every 3 Years 1985 Annual Physical 1988 Hepatitis C 04/29/2003 DTaP, Tdap and Td Vaccines ( 1 - Tdap) 2004 Hepatitis B Vaccines (1 of 3 - 19+ 3-dose series) 2004 Cervical Cancer Screening Pa p with HPV Testing (Age 30 to 64) Every 5 Years 04/29/2015 Cervical Cancer Screening with HPV 04/29/2015 COVID-19 Vaccine (2023-2 5 season) 2023 Influenza Adult (#1) 2023 HPV Vaccines Aged Out No longer eligi ble based on patient's age to complete this topic Meningococcal B Vaccine Aged Out No l onger eligible based on patient's age to complete this topic Meningococcal Vaccine Aged Out No sabrina janes eligible based on patient's age to complete this topic Pneumococcal Vaccine: Pediat rics (0 to 5 Years) and At-Risk Patients (6 to 64 Years) Aged Out No longer eligible b ased on patient's age to complete this topic RSV Immunizations Under 20 Months Aged Out No longer eligible based on patient's age to complete this topic
--- OUTSIDE RECORDS SUMMARY | 2024-05-13 13:40 | XMS_ITS | Clinical Summary ---
Author Organization [facility] Address [address] [place] [address] Phone Care Team Providers Care Route Sales Delivery Drivers Supervisor Name Role Phone Jaquelin Nuñez APRN, CNP Primary Care Provid er Allergies Active Allergy Reactions Criticality Noted Date Comments Sumatriptan Nausea 10/09/2019 Iodine Hives,Vomiting,Nausea High 03/07/2019 Cephalexin Hives 04/18/2019 Penicillins Unknown 03/07/2019 Acetaminophen Unknown 03/07/2019 States it raises her liver enzymes Vancomycin Unknown 03/07/2019 Medications ibuprofen (MOTRIN) 800 MG Tablet TK 1 T PO Q 12 H PRN P 0 Active Acetaminophen-Caff eine (EXCEDRIN TENSION HEADACHE PO) Take by mouth. Active omeprazole (PriLOSEC) 40 MG CAPSULE DELAYED RELEASEIndications :Epigastric abdominal pain TAKE 1 CAPSULE BY MOUTH TWICE DAILY 180 Capsule 3 2 Active metoprolol tartrate (LOPRESSOR) 25 MG Tablet Take 0.5 Tablets by mouth 2 times daily. 180 Tablet 3 2 Active albuterol 108 (90 Base) MCG/ACT Aerosol SolutionIndication s:COVID-19,Dyspnea on exertion INHALE 2 PUFFS BY MOUTH EVERY 4 HOURS NEEDED FOR WHEEZING OR COUGH 8.5 g 2 Active MECLIZINE HCL PO Take by mouth. Active estradiol (VIVELLE) 0.1 MG/24HR PATCH BIWEEKLYIndication s:Estrogen deficiency APPLY 1 PATCH TOPICALLY TO THE SKIN 2 TIMES A WEEK 12 Patch 1 4 Active Vyvanse 30 MG CapsuleIndications :Attention deficit hyperactivity disorder (ADHD), combined type Take 1 Capsule by mouth daily. 30 Capsule 4 Active venlafaxine (EFFEXOR-XR) 75 MG CAPSULE SR 24 HRIndications:Anxi ety Take 1 Capsule by mouth daily. 90 Capsule 1 4 Active Active Problems Problem Noted Date Diagnosed Date Estrogen deficiency 02/02/2022 Mitral valve prolapse 01/14/2015 Encounters Date Type Department Care Team Description 02/14/2024 Refill [facility] [address] [place] [address] Jaquelin Nuñez APRN, CLINICAL PSYCHIATRIST Medication Refill from Last 3 Months Immunizations Immunization Administration Dates Next Due Covid-19, Mrna, Lnp-s, Pf, 3 0 Mcg/0.3 Ml Dose ([employer]) 09/09/2020,08/06/2020 HEP B/HIB Combined Vaccine 07/07/2014,11/16/2013 ,10/17/2013 Hepatitis B Vaccine 07/07/2014,11/16/2013,2013 Influenza Vaccine 12/23/2020,12/17/2015,11/22/19 15 Influenza Vaccine greater than 3 yrs 12/17/2015 Influenza Vaccine, MDCK,quad rivalent, pres free 02/01/2017 Influenza Vaccine, Quadrivalent, PF 11/29/2021,0 11/09/2018,11/08/2017 Influenza, Injectable, Quadrivalent 11/09/2018 Influenza, Seasonal, Injectable, Undefined 10/17 Meningococcal MCV4, Unspecified Formulation 10/24 Meningococcal MCV4O 11/14/2013 Pneumococcal Vaccine Adult - 23 Valent 4 TB Skin Test 03/11/2021 TDAP Vaccine 07/20/2016,03/12/2015 Family History Medical History Relation Name Comments AIDS/HIV Father Alcohol Abuse Father Anxiety disorder Father Depression Father Drug Abuse Father Kidney Disease Father Diabetes Maternal Grandfather Adolfo Heart Attack Maternal Grandfather Adolfo Heart Disease Maternal Grandfather Adolfo Diabetes Maternal Grandmother Candi Alcohol Abuse Mother Anxiety disorder Mother Depression Mother Other-comment Paternal Grandmother Blood disease Relation Name Status Comments Child 1 Alive Child 2 Alive Child 3 Alive Child 4 Alive Child 5 Alive Child 6 Alive Father Maternal Grandfather Adolfo Maternal Grandmother Candi Alive Mother Alive Paternal Grandfather Alive Paternal Grandmother Alive Social History Tobacco Use Types Packs/Day Years Used Date Smoking Tobacco: Former Cigarettes 1 10 0 03/07/2004 - 03/07/2014 Smokeless Tobacco: Never Tobacco Cessation:Counseling Given: Yes Alcohol Use Standard Drinks/Week Comments Yes 0 (1 standard drink = 0.6 oz pur e alcohol) Rarely [facility] Utilities Answer Date Recorded In the past 12 months has th e electric, gas, oil, or water company threatened to shut off services in your home? No 09/12/2023 Social Connection and Isolation Panel [NHANES] A nswer Date Recorded In a typical week, how many times do you talk on the phone with family, friends, or neighbors? Never 09/12/19 How often do you get togethe r with friends or relatives? Never 09/12/2023 How often do you attend [facility] ch or hoahaoism services? 1 to 4 times per year 09/12/2023 Do you belong to any clubs o r organizations such as mosque groups, unions, fraternal or athletic groups, or school groups? No 09/12/2023 How often do you attend meet ings of the clubs or organizations you belong to? Never 09/12/2023 Are you , , di vorced, , never , or living with a partner? 09/12/2023 AUDIT-C Answer Date Recorded Q1: How often do you have a drink containing alc ohol? Monthly or less 09/12/2023 Q2: How many drinks containi ng alcohol do you have on a typical day when you are drinking? 1 or 2 09/12/2023 Q3: How often do you have si x or more drinks on one occasion? Less than monthly 09/12/2023 Overall Financial Resource Strain (CARDIA) Answe r Date Recorded How hard is it for you to pa y for the very basics like food, housing, medical care, and heating? Not very hard 09/12/2023 PHQ-2 Answer Date Recorded Total Score - Questions 1-9 0 09/2020 [facility] Spr[facility] of Occupat ional Health - Occupational Stress Questionnaire Answer Date Recorded Do you feel stress - tense, restless, nervous, or anxious, or unable to sleep at night because your mind is troubled all the time - these days? Very much 09/12/2023 Exercise Vital Sign Answer Date Recorde d On average, how many days pe r week do you engage in moderate to strenuous exercise (like a brisk walk)? 3 days On average, how many minutes do you engage in exercise at this level? Patient declined 09/12/2023 Hunger Vital Sign Answer Date Recorded Within the past 12 months, y ou worried that your food would run out before you got the money to buy more. Never true 09/12/19 24 Within the past 12 months, t he food you bought just didn't last and you didn't have money to get more. Never true 09/12/2023 PRAPARE - Transportation Answer Date Re corded In the past 12 months, has l ack of transportation kept you from medical appointments or from getting medications? No 08/23 In the past 12 months, has l ack of transportation kept you from meetings, work, or from getting things needed for daily living? No 09/12/2023 Housing Stability Vital Sign Answer Cosme e Recorded In the last 12 months, was t here a time when you were not able to pay the mortgage or rent on time? No 03/25/2023 Number of Places Lived in the Last Year Not on f ile 03/25/2023 In the last 12 months, was t here a time when you did not have a steady place to sleep or slept in a jail (including now)? No 03/25/2023 Housing Stability Vital Sign Answer Cosme e Recorded In the last 12 months, was t here a time when you were not able to pay the mortgage or rent on time? No 09/12/2023 In the past 12 months, how m any times have you moved where you were living? 0 09/12/2023 At any time in the past 12 m [facility], were you homeless or living in a jail (including now)? No 09/12/2023 Education Answer Date Recorded What is the highest level of school you have completed or the highest degree you have received? 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 Not on file Not on file Last Filed Vital Signs Vital Sign Reading Time Taken Comments Blood Pressure 100/62 09/28/2023 2:11 PM CDT Pulse 77 09/28/2023 2:11 PM CDT Temperature 36.6 C (97.8 F) 09/28/2023 2:11 PM CDT Respiratory Rate 16 09/28/2023 2:11 PM CDT Oxygen Saturation 98% 09/28/2023 2:11 PM CDT Inhaled Oxygen Concentration - - Weight 60.3 kg (133 lb) 09/28/2023 2:11 PM CDT Height 154.9 cm (5' 1 ) 09/28/2023 2:11 PM CDT Body Mass Index 25.13 09/28/2023 2:11 PM CDT Plan of Treatment Health Maintenance Due Date Last Done Comments Hepatitis C Virus (HCV) Screening 1985 Influenza Immunization (#1) 2023 10/0 09/2021, 12/23/2020, 11/09/2018, Additional history exists SARS-COV-2 Immunization ( season) 2023 09/09/2020, 08/06/2020 Td Immunization Every 10 Years (Adults With 1 Tdap) 07/20/2026 07/20/2016, 03/12/2015 Respiratory Syncytial Virus (RSV) Immunization (Adult) (1 - 1-dose 75+ series) 2060 Meningococcal Immunization (ACWY) Aged Out 11/14/2013, 11/14/2013 No longer eligibl e based on patient's age to complete this topic Pneumococcal Immunization Combined Aged Out 11/16/2013 No longer eligible based on patient's age to complete this topic Hepatitis B Immunization Completed 015, 07/07/2014, 11/16/2013, Additional history exists DTaP/Tdap/Td Immunization Discontinued 07/20/2016, Rotavirus Immunization Aged Out No lo nger eligible based on patient's age to complete this topic Goals Goal Patient Goal Type Associated Problems Recent Progress Patient-Stated? Author Behavioral Health Behavioral Health On track( 024 8:24 AM [employer]PR[place] REVERSE WINDER) Yes Benson Schmidt PSYD Note: Patient wishes to navigate difficult decisions regarding her marriage and children successfully. Insurance [place] [address] [place] [address] [place] [address] [facility] Care Teams Route Sales Delivery Drivers Supervisor Relationship Specialty Start Date End Date Jaquelin Nuñez APRN, CNP [address] [address] PCP - General Advanced Practice Nurse 03/07/19
--- OUTSIDE RECORDS SUMMARY | 2024-05-13 13:40 | XMS_ITS | Encounter Summary ---
Author Organization [facility] Address [address] [place] [address] Phone Care Team Providers Care Biblical Languages Professor Name Role Phone Jaquelin Nuñez APRN, CNP Primary Care Provid er Salomón Dhillon MD Unavailable Emilee Velasquez RN Unavailable Unavaila ble Reason for Visit * Reason Comments Medication Refill Encounter Details Date Type Department Care Team (Late st Contact Info) Description 11/01/2022 Refill [facility] [place] [address] [place] [address] Jaquelin Nuñez APRN, CNP [address] [address] Medication Refill Social History Tobacco Use Types Packs/Day Years Used Date Smoking Tobacco: Former Cigarettes 1 10 0 03/07/2004 - 03/07/2014 Smokeless Tobacco: Never Alcohol Use Standard Drinks/Week Comments Yes 0 (1 standard drink = 0.6 oz pur e alcohol) Rarely PHQ-2 Answer Date Recorded Total Score - Questions 1-9 0 09/2020 Education Answer Date Recorded What is the highest level of school you have completed or the highest degree you have received? 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 Yes 10/15/2022 7:44 AM CDT documented as of this encounter Miscellaneous Notes * Telephone Encounter - Shelley Otto RN - 11/02/2022 8:49 AM CDT Name from pharmacy: FLUOXETINE 20MG CAPSULES Will file in chart as: FLUoxetine (PROzac) 20 MG Capsule The original prescription was discontinued on 08/13/2022 by Jaquelin Nuñez APRN, CNP for the following reason: Formulary change. documented in this encounter Plan of Treatment Not on file documented as of this encounter Goals Goal Patient Goal Type Associated Problems Recent Progress Patient-Stated? Author Behavioral Health Behavioral Health On track( 024 8:24 AM REAL ESTATE SITE ANALYST) Yes Benson Schmidt PSYD Note: Patient wishes to navigate difficult decisions regarding her marriage and children successfully. documented as of this encounter Visit Diagnoses Diagnosis Anxiety Anxiety state, unspecified Stress reaction Other acute reactions to stress documented in this encounter Additional Health Concerns Assessment Noted Time PHQ-9 Depression Total Score: 0 08/30/19 21 3:00 PM CDT documented as of this encounter Care Teams Biblical Languages Professor Relationship Specialty Start Date End Date Jaquelin Nuñez APRN, CNP [address] [phone] PCP - General Advanced Practice Nurse 03/07/19 Salomón Dhillon MD [address] [address] Traveling Accountant Cardiovascular Disease - Cardiology 06/24/21 01/30/24 Emilee Crane RN [place] Registered Nurse Cardiology 12/08/21 01/30/24 documented as of this encounter
--- OUTSIDE RECORDS SUMMARY | 2024-05-13 13:40 | XMS_ITS | Data Portability ---
Author Organization [facility] [place] Address [address] [place] [address] Care Team Providers Care Screen Maker Name Role Phone JOE AMBROCIOANNA Primary Care [...] Lab TSH, serum or plasma 2021 022 [facility] (Lab), [address], [place], [address], 05:11:45 vitamin D, 25-hydroxy, total, serum 2021 022 [facility] (Lab), [address], [place], [address], 05:11:46 testosteron e, total, serum 082020 [facility] ([facility]), [address], [place], [address], 1 16:52:29 CMP, serum or plasma 2020 [facility] ([facility]), [address], [place], [address], 1 03:34:57 TSH, serum or plasma 2020 [facility] ([facility]), [address], [place], [address], 1 03:34:58 vitamin D, 25-hydroxy, total, serum 2020 [facility] ([facility]), [address], [place], [address], 1 03:34:58 lipid panel, serum [address] -[facility] ([facility]), [address], [place], [address], 1 16:51:51 HbA1c (hemoglobin A1c), blood 2020 [facility] ([facility]), [address], [place], [address], 1 03:34:58 CBC w/ auto diff 2020 [facility]), [address], [place], [address], 03:34:56 Referral None recorded. Procedures None recorded. Surgeries None recorded. Imaging US, breast, unilateral, w/ axilla 2022 023 [facility], [address] [place] [address], [place], [address], 3 05:01:41 US, breast, unilateral, w/ axilla [address], [address] [place], [place] [address] [address], [place], [address], 2 17:58:12 MAMMO, diagnostic, digital, bilateral [address], [address] [facility], [place], [address], 2 20:44:13 US, breast, bilateral, complete 2021 022 [facility], [address] [facility], [place], [address], 2 14:13:03 Medication Orders Vivelle-Dot 0.1 mg/24 hr transdermal patch 2022 023 [facility]85, [address], [place], [place], [id number], 3 10:42:35 CombiPatch 0.05 mg-0.25 mg/24 hr transdermal 2021 022 [email or web address] 1 [facility], [address], [place], [place], [id number], 3 10:29:50 estradiol 1 mg tablet 2020 021 [address] [facility]92363, [address], [place], [place], [id number], 2 10:46:27 Prometrium 100 mg capsule 2020 [email or web address] 1 [facility] #54499, [address], [place], [place], [id number], 3 10:30:43 trazodone 50 mg tablet 2020 [email or web address] 1 [facility] #42614, [address], [place], [place], [id number], 3 10:30:57 Vivelle-Dot 0.1 mg/24 hr transdermal patch 2020 BRAULIO [facility] #31850, [address], [place], [place], [id number], 14:41:56 Prometrium 100 mg capsule 2020 [email or web address] 1 [facility] #00221, [address], [place], [place], [id number], 3 10:30:43 Patient TargetsNo targets recorded. Patient InstructionsNo instructions recorded. Reason for Referral None Reported. Results Created Date Observation Date Name Description Value Unit Range Abnormal Flag Note LastModifiedBy Organization Detail LastModifiedTime 10/17/1910/16/2020 CBC W/DIF F WBC 7.5 10'3/ uL 3.6-10 .2 Not Available [facility] (Lab) [address], [place], [address], 10/17/2020 03:34:56 10/17/19 21 10/16/2020 CBC W/DIF F RBC 4.20 10'6/ uL (based on docume nted legal sex) 4.10-5 .30 Not Available [facility] (Lab) [address], [place], [address], 10/17/2020 03:34:56 10/17/19 21 10/16/2020 CBC W/DIF F HGB 12.9 g/dL (based on docume nted legal sex) 11.9-1 5.8 Not Available [facility] (Lab) [address] [facility], [place], [address], 10/17/2020 03:34:56 10/17/19 21 10/16/2020 CBC W/DIF F HCT 38.8 % (based on docume nted legal sex) 37.4-4 8.3 Not Available [facility] (Lab) [address] [facility], [place], [address], 10/17/2020 03:34:56 10/17/19 21 10/16/2020 CBC W/DIF F MCV 92.0 fL 82.0-9 9.0 Not Available [facility] (Lab) [address] [facility], [place], [address], 10/17/2020 03:34:56 10/17/19 21 10/16/2020 CBC W/DIF F MCH 31.0 pg 27.0-3 3.0 Not Available [facility] (Lab) [address] [facility], [place], [address], 10/17/2020 03:34:56 10/17/19 21 10/16/2020 CBC W/DIF F MCHC 33.0 g/dL 32.0-3 6.0 Not Available [facility] (Lab) [address] [facility], [place], [address], 10/17/2020 03:34:56 10/17/19 21 10/16/2020 CBC W/DIF F RDW 12.0 % 11.0-1 5.0 Not Available [facility] (Lab) [address] [facility], [place], [address], 10/17/2020 03:34:56 10/17/19 21 10/16/2020 CBC W/DIF F plt 226 10'3/ uL 150-45 0 Not Available [facility] (Lab) [address] [facility], [place], [address], 10/17/2020 03:34:56 10/17/19 21 10/16/2020 CBC W/DIF F MPV 10.9 fL 9.8-12 .7 Not Available [facility] (Lab) [address] [facility], [place], [address], 10/17/2020 03:34:56 10/17/19 21 10/16/2020 CBC W/DIF F NRBC's 0.00 % 0 Not Available [facility] (Lab) [address] [facility], [place], [address], 10/17/2020 03:34:56 10/17/19 21 10/16/2020 CBC W/DIF F absolute NRBCs 0.0 10'3/ uL 0 Not Available [facility] (Lab) [address] [facility], [place], [address], 10/17/2020 03:34:56 10/17/19 21 10/16/2020 CBC W/DIF F neutrophils 60.0 % 37.0-7 2.0 Not Available [facility] (Lab) [address] [facility], [place], [address], 10/17/2020 03:34:56 10/17/19 21 10/16/2020 CBC W/DIF F lymphocytes 27.0 % 16.0-4 8.0 Not Available [facility] (Lab) [address] [facility], [place], [address], 10/17/2020 03:34:56 10/17/19 21 10/16/2020 CBC W/DIF F monocytes 9.0 % 4.0-14 .0 Not Available [facility] (Lab) [address] [facility], [place], [address], 10/17/2020 03:34:56 10/17/19 21 10/16/2020 CBC W/DIF F eosinophils 3.0 % 0.0-9. 0 Not Available [facility] (Lab) [address] [facility], [place], [address], 10/17/2020 03:34:56 10/17/19 21 10/16/2020 CBC W/DIF F basophils 1.0 % 0.0-2. 0 Not Available [facility] (Lab) [address] [facility], [place], [address], 10/17/2020 03:34:56 10/17/19 21 10/16/2020 CBC W/DIF F immature granulocytes 0.0 % no define d refere nce range Not Available [facility] (Lab) [address] [facility], [place], [address], 10/17/2020 03:34:56 10/17/19 21 10/16/2020 CBC W/DIF F absolute neutrophils 4.4 10'3/ uL 1.1-6. 0 Not Available [facility] (Lab) [address] [facility], [place], [address], 10/17/2020 03:34:56 10/17/19 21 10/16/2020 CBC W/DIF F absolute lymphocytes 2.0 10'3/ uL 0.7-3. 4 Not Available [facility] (Lab) [address] [facility], [place], [address], 10/17/2020 03:34:56 10/17/19 21 10/16/2020 CBC W/DIF F absolute monocytes 0.7 10'3/ uL 0.3-1. 0 Not Available [facility] (Lab) [address] [facility], [place], [address], 10/17/2020 03:34:56 10/17/19 21 10/16/2020 CBC W/DIF F absolute eosinophils 0.2 10'3/ uL 0.0-0. 6 Not Available [facility] (Lab) [address] [facility], [place], [address], 10/17/2020 03:34:56 10/17/19 21 10/16/2020 CBC W/DIF F absolute basophils 0.1 10'3/ uL 0.0-0. 1 Not Available [facility] (Lab) [address] [facility], [place], [address], 10/17/2020 03:34:56 10/17/19 21 10/16/2020 CBC W/DIF [...] resul ts are expec [place]. Not Available [facility] (Lab) [address] [facility], [place], [address], 10/17/2020 03:34:56 10/17/19 21 10/16/2020 LIPID PANEL ,AMA (LDL- CALC) total cholesterol 168 mg/dL 0-199 Not Available [facility] (Lab) [address] [facility], [place], [address], 10/17/2020 03:34:57 10/17/19 21 10/16/2020 LIPID PANEL ,AMA (LDL- CALC) triglyceride s 81 mg/dL 0.00-1 50.00 NCEP Refer ence Value s for Trigl yceri christine: Alta l: <150 mg/dL Borde rline High: 150 - 199 mg/dL High: 200 - 499 mg/dL Very High: >/= 500 mg/dL Not Available [facility] (Lab) [address] [place], [address], 10/17/2020 03:34:57 10/17/19 21 10/16/2020 LIPID PANEL ,AMA (LDL- CALC) HDL cholesterol 59 mg/dL 23-92 Not Available [facility] (Lab) [address] [place], [address], 10/17/2020 03:34:57 10/17/19 21 10/16/2020 LIPID PANEL [...] mg/dL , HDL <40 mg/dL Not Available [facility] (Lab) [address] [facility], [place], [address], 10/17/2020 03:34:57 10/17/19 21 10/16/2020 LIPID PANEL ,AMA (LDL- CALC) non-HDL cholesterol 109 mg/dL no refere nce range A reaso nable goal for non-H DL tatiana stero l is one that is 30 mg/dL highe r than the LDL tatiana stero l goal. Not Available [facility] (Lab) [address] [facility], [place], [address], 10/17/2020 03:34:57 10/17/19 21 10/16/2020 LIPID PANEL ,AMA (LDL- CALC) chol/HDL ratio 2.8 . 0.0-5. 0 Not Available [facility] (Lab) [address] [place], [address], 10/17/2020 03:34:57 10/17/19 21 10/16/2020 CMP(C OMPRE HENSI VE METAB OLIC PANEL ) sodium 137 mmol/ L 136-14 5 Not Available [facility] (Lab) [address] [place], [address], 10/17/2020 03:34:57 10/17/19 21 10/16/2020 CMP(C OMPRE HENSI VE METAB OLIC PANEL ) potassium 3.8 mmol/ L 3.5-5. 1 Not Available [facility] (Lab) [address] [facility], [place], [address], 10/17/2020 03:34:57 10/17/19 21 10/16/2020 CMP(C OMPRE HENSI VE METAB OLIC PANEL ) chloride 103 mmol/ L 98-107 Not Available [facility] (Lab) [address] [facility], [place], [address], 10/17/2020 03:34:57 10/17/19 21 10/16/2020 CMP(C OMPRE HENSI VE METAB OLIC PANEL ) carbon dioxide 29 mmol/ L 21-31 Not Available [facility] (Lab) [address] [facility], [place], [address], 10/17/2020 03:34:57 10/17/19 21 10/16/2020 CMP(C OMPRE HENSI VE METAB OLIC PANEL ) anion gap 5 mmol/ L 4-13 Not Available [facility] (Lab) [address] [facility], [place], [address], 10/17/2020 03:34:57 10/17/19 21 10/16/2020 CMP(C OMPRE HENSI VE METAB OLIC PANEL ) blood urea nitrogen 18 mg/dL 7-25 Not Available [facility] (Lab) [address] [facility], [place], [address], 10/17/2020 03:34:57 10/17/19 21 10/16/2020 CMP(C OMPRE HENSI VE METAB OLIC PANEL ) creatinine 0.84 mg/dL 0.60-1 .30 Not Available [facility] (Lab) [address] [facility], [place], [address], 10/17/2020 03:34:57 10/17/19 21 10/16/2020 CMP(C OMPRE HENSI VE METAB OLIC PANEL ) GFR () 94 mL/mi n/1.7 3_m2 60-300 Not Available [facility] (Lab) [address] [facility], [place], [address], 10/17/2020 03:34:57 10/17/19 21 10/16/2020 CMP(C OMPRE HENSI VE METAB OLIC PANEL ) GFR (others) 77 mL/mi n/1.7 3_m2 60-300 Not Available [facility] (Lab) [address] [facility], [place], [address], 10/17/2020 03:34:57 10/17/19 21 10/16/2020 CMP(C OMPRE HENSI VE METAB OLIC PANEL ) calcium 9.2 mg/dL 8.6-10 .2 Not Available [facility] (Lab) [address] [facility], [place], [address], 10/17/2020 03:34:57 10/17/19 21 10/16/2020 CMP(C OMPRE HENSI VE METAB OLIC PANEL ) glucose 84 mg/dL 70-100 Not Available [facility] (Lab) [address] [facility], [place], [address], 10/17/2020 03:34:57 10/17/19 21 10/16/2020 CMP(C OMPRE HENSI VE METAB OLIC PANEL ) protein, total 6.2 g/dL 6.4-8. 3 low Not Available [facility] (Lab) [address] [facility], [place], [address], 10/17/2020 03:34:57 10/17/19 21 10/16/2020 CMP(C OMPRE HENSI VE METAB OLIC PANEL ) albumin 3.9 g/dL 3.5-5. 0 Not Available [facility] (Lab) [address] [facility], [place], [address], 10/17/2020 03:34:57 10/17/19 21 10/16/2020 CMP(C OMPRE HENSI VE METAB OLIC PANEL ) ALT 14 units /L 9-43 Not Available [facility] (Lab) [address] [facility], [place], [address], 10/17/2020 03:34:57 10/17/19 21 10/16/2020 CMP(C OMPRE HENSI VE METAB OLIC PANEL ) alkaline phosphatase 39 units /L 34-104 Not Available [facility] (Lab) [address] [facility], [place], [address], 10/17/2020 03:34:57 10/17/19 21 10/16/2020 CMP(C OMPRE HENSI VE METAB OLIC PANEL ) AST 17 units /L 13-39 Not Available [facility] (Lab) [address] [facility], [place], [address], 10/17/2020 03:34:57 10/17/19 21 10/16/2020 CMP(C OMPRE [...] will be imple mente d. Not Available [facility] (Lab) [address] [facility], [place], [address], 10/17/2020 03:34:57 10/17/19 21 10/16/2020 TSH, REFLE X FREE T4 TSH 1.64 uIU/m L 0.30-5 .33 Not Available [facility] (Lab) [address] [facility], [place], [address], 10/17/2020 03:34:58 10/17/19 21 10/16/2020 VITAM IN D, 25-OH (TOTA L D2/D3 ) vitamin D, 25-hydroxy, total 39.8 NG/mL 30-80 NOTE: Defic iency : <20 ng/mL Insuf ficie ncy: 20-29 ng/mL Optim um Level : 30-80 ng/mL Possi ble Toxic ity: >80 ng/mL Most patie nts with toxic ity have level s >150 ng/mL . Not Available [facility] (Lab) [address] [place], [address], 10/17/2020 03:34:58 10/17/19 21 10/16/2020 HEMOG LOBIN [...] >8.0% Actio n sugge sted Not Available [facility] (Lab) [address], [place], [address], 10/17/2020 03:34:58 11/18/19 22 11/17/2021 TSH, REFLE X FREE T4 TSH 1.62 uIU/m L 0.30-5 .33 Not Available [facility] [address] [place] [address], [address], 11/18/2021 05:11:45 11/18/19 22 11/17/2021 VITAM IN D, 25-OH (TOTA L D2/D3 ) vitamin D, 25-hydroxy, total 28.9 NG/mL 30.0-1 00.0 low Sugge stive of Defic iency : <20 ng/mL Sugge stive of Insuf ficie ncy: 20-29 ng/mL Sugge stive of Suffi cienc y: 30-10 0 ng/mL Sugge stive of Toxic ity: >150 ng/mL Not Available [facility] [address] [place], [address], 11/18/2021 05:11:46 05/16/19 22 US, breas t, bilat eral, compl ete No observ ation record ed. [address] [facility], [place], [address], 05/27/2021 10:22:34 05/16/19 22 DEXA No observ ation record ed. [address] [facility] [address] [place] [address] [place] [address], [phone], 05/20/2021 11:56:51 12/04/1911/21/2021 US, breas t, bilat eral, compl ete No observ ation record ed. [address], [place], [address], 12/09/2021 16:21:31 Result Notes None recorded. Problems Name Problem SNOMED Code Status Onset Date Resolution Date Notes Provider Name and Address Organization Details Recorded Time finding Completed 201410/16/2020 Matern care for oth or susp poor fetl grth, 2nd tri, unsp;Rec orded Elsewher e: No Locat ion: [facility] S ource: EHR Product Sales Engineer amisha: N Jacinto ce ID: [id number] Hitesh lable Time: 08:00:00 AM Karolyn [facility] 13:10:47 Normal pregnanc y in multigra sylvester [id number] Completed 201510/16/2020 Encounte r for supervis ion of other normal pregnanc y, third trimeste r;Record ed Elsewher e: No Locat ion: [facility] S ource: EHR Product Sales Engineer amisha: N Jacinto ce ID: [id number] Hitesh lable Time: 09:00:00 AM Karolyn [facility] 13:11:45 Lochia finding Completed 201610/16/2020 Encounte r for routine postpart um follow-u p;Record ed Elsewher e: No Locat ion: Guillaume rodriguez [facility] S ource: EHR Product Sales Engineer amisha: N Practi ce ID: [id number] Hitesh lable Time: 09:30:00 AM Karolyn carlson [facility] 13:11:30 Cyst of ovary Completed 201710/16/2020 Ovarian cyst;Rec orded Elsewher e: No Locat ion: Amitabuddy jennifer [facility] S ource: EHR Product Sales Engineer amisha: N Practi ce ID: [id number] Hitesh lable Time: 03:00:00 PM Karolyn Raza [facility] 13:10:18 finding Completed 201510/16/2020 Matern care for oth or susp poor fetl grth, third tri, unsp;Rec orded Elsewher e: No Locat ion: [facility] jennifer [facility] S ource: EHR Product Sales Engineer amisha: N Greggti ce ID: [id number] Hitesh lable Time: 09:30:00 AM Karolyn Raza [facility] 13:10:50 Gestatio n period, 35 weeks [id number] Completed 201510/16/2020 35 weeks gestatio n of pregnanc y;Record ed Elsewher e: No Locat ion: [facility] jennifer [facility] S ource: EHR Product Sales Engineer amisha: N Practi ce ID: [id number] Hitesh lable Time: 08:30:00 AM Karolyn carlson [facility] 13:11:12 Gestatio n period, 26 weeks [id number] Completed 201410/16/2020 26 weeks gestatio n of pregnanc y;Record ed Elsewher e: No Locat ion: [facility] jennifer [facility] S ource: EHR Product Sales Engineer amisha: N Practi ce ID: [id number] Hitesh lable Time: 08:00:00 AM Karolyn Raza [facility] 13:11:00 Gestatio n period, 31 weeks [id number] Completed 201510/16/2020 31 weeks gestatio n of pregnanc y;Record ed Elsewher e: No Locat ion: Guillaume rodriguez [facility] S ource: EHR Product Sales Engineer amisha: N Practi ce ID: [id number] Hitesh lable Time: 08:30:00 AM Karolyn Raza [facility] 1 13:11:06 Dysmenor juan pablo [id number] Completed 201210/16/2020 Dysmenor juan pablo;Rec orded Elsewher e: No Locat ion: Guillaume rodriguez [facility] S ource: EHR Product Sales Engineer amisha: N Practi ce ID: [id number] Hitesh lable Time: 02:00:00 PM Karolyn Raza [facility] 13:10:27 Emotiona l state finding Completed 201810/16/2020 Anxiety depressi on;Recor ded Elsewher e: No Locat ion: Guillaume rodriguez [facility] S ource: EHR Product Sales Engineer amisha: N Practi ce ID: [id number] Hitesh lable Time: 01:00:00 PM Karolyn Raza [facility] 13:10:[address] Concept Completed 201810/16/2020 Encntr for rehab physician exam (general ) (routine ) w/o abn findings ;Recorde d Elsewher e: No Locat ion: Guillaume rodriguez [facility] S ource: EHR Product Sales Engineer amisha: N Practi ce ID: [id number] Hitesh lable Time: 01:00:00 PM Karolyn Raza [facility] 1 13:12:29 Gestatio n period, 22 weeks [id number] Completed 201410/16/2020 22 weeks gestatio n of pregnanc y;Record ed Elsewher e: No Locat ion: Guillaume rodriguez [facility] S ource: EHR Product Sales Engineer amisha: N Practi ce ID: [id number] Hitesh lable Time: 03:00:00 PM Karolyn Raza [facility] 13:10:56 Bone density finding [id number] Completed 201910/16/2020 osteopen ia;Recor ded Elsewher e: No Locat ion: [facility] S ource: EHR Product Sales Engineer amisha: N Practi ce ID: [id number] Hitesh lable Time: 01:15:00 PM Kraolyn carlson [facility] 13:10:03 Otitis media Completed 201610/16/2020 Other acute nonsuppu rative otitis media, right ear;Silver rded Elsewher e: No Locat ion: [facility] S ource: EHR Product Sales Engineer amisha: N Practi ce ID: [id number] Hitesh lable Time: 02:15:00 PM Karolyn carlson [facility] 13:11:50 Routine antenata l care Completed 201210/16/2020 Supervis ion of other normal pregnanc y;Practi ce ID: 0001 Karolyn carlson [facility] 13:12:17 Delivery normal [id number] Completed 201210/16/2020 Normal delivery ;Practic e ID: 0001 Karolyn Raza [facility] 13:10:21 Single live [id number] Completed 201210/16/2020 Mother with single liveborn ;Practic e ID: 0001 Karolyn carlson [facility] 13:12:23 Female genital organ symptoms [id number] Completed 201210/16/2020 Unspecif ied symptom associat ed with female genital organs;P ractice ID: 0001 Karolyn Raza [facility] 13:10:42 Postpart um care Completed 201210/16/2020 Routine postpart um follow-u p;Practi ce ID: 0001 Karolyn carlson [facility] 13:11:58 Eruption [id number] Completed 201210/16/2020 Rash and other nonspeci fic skin eruption ;Practic e ID: 0001 Karolyn Raza [facility] 13:10:34 Insertio n of intraute rine contrace ptive device Completed 201210/16/2020 INSERTIO N OF IUD;Prac zehra ID: 0001 Karolyn Raza [facility] 13:11:24 Pregnanc y test negative [id number] Completed 201210/16/2020 Negative Pregnanc y Test;Pra ctice ID: 0001 Karolyn Raza [facility] 13:12:01 Abdomina l pain [id number] Completed 201210/16/2020 Abdomina l pain, unspecif ied site;Pra ctice ID: 0001 Karolyn Raza [facility] 13:09:54 Right lower quadrant pain [id number] Completed 201210/16/2020 Abdomina l pain, right lower [...] Smear;Pr actice ID: 0001 Karolyn Raza null, [facility] 13:12:18 Dysfunct ional uterine bleeding Completed 201210/16/2020 DUB;Prac zehra ID: 0001 Karolyn carlson, [facility] 13:10:25 Irregula r intermen strual bleeding [id number] Completed 201310/16/2020 Metrorrh agia;Pra ctice ID: 0001 Karolyn carlson, [facility] 13:11:25 finding Completed 201410/16/2020 Maternal care for known small-fo r-dates, second trimeste r, fetus 1;Record ed Elsewher e: No Locat ion: [facility] S ource: EHR Product Sales Engineer amisha: N Practi ce ID: [id number] Hitesh lable Time: 03:30:00 PM Karolyn Raza [facility] 13:10:48 Gestatio n period, 33 weeks [id number] Completed 201510/16/2020 33 weeks gestatio n of pregnanc y;Record ed Elsewher e: No Locat ion: [facility] S ource: EHR Product Sales Engineer amisha: N Practi ce ID: [id number] Hitesh lable Time: 08:30:00 AM [facility] 13:11:09 Removal of intraute rine device Completed 201310/16/2020 REMOVAL OF IUD;Silver rded Elsewher e: No Locat ion: [facility] S ource: EHR Product Sales Engineer amisha: N Practi ce ID: 0001 Hitesh lable Time: 03:15:00 PM Karolyn Raza [facility] 13:12:14 Medical examinat ion for suspecte d conditio n Completed 201410/16/2020 Encounte r for suspecte d problem with growth ruled out;Silver rded Elsewher e: No Locat ion: Guillaume rodriguez [facility] S ource: EHR Product Sales Engineer amisha: N Practi ce ID: 0001 Hitesh lable Time: 08:00:00 AM Karolyn carlson, [facility] 13:11:35 Gestatio n period, 30 weeks [id number] Completed 201510/16/2020 30 weeks gestatio n of pregnanc y;Record ed Elsewher e: No [facility]at [facility] ource: EHR Product Sales Engineer amisha: N Practi ce ID: 0001 Hitesh lable Time: 08:30:00 AM Karolyn carlson, [facility] 13:11:04 Gestatio n period, 29 weeks [id number] Completed 201410/16/2020 29 weeks gestatio n of pregnanc y;Record ed Elsewher e: No Locat ion: Brien jennifer [facility] S ource: EHR Product Sales Engineer amisha: N Practi ce ID: 0001 Hitesh lable Time: 11:00:00 AM Karolyn carlson, [facility] 13:11:03 Pelvic and perineal pain [id number] Completed 201710/16/2020 Pelvic pain;Rec orded Elsewher e: No Locat ion: [facility] S ource: EHR Product Sales Engineer amisha: N Practi ce ID: 0001 Hitesh lable Time: 02:00:00 PM Karolyn carlson, [facility] 13:11:52 Increase d frequenc y of urinatio n [id number] Completed 201810/16/2020 Frequenc y of micturit ion;Prac zehra ID: 0001 Karolyn carlson, [facility] 13:11:20 Poor growth affectin g manageme nt [id number] Completed 201210/16/2020 GROWTH POOR SGA;Prac zehra ID: 0001 Karolyn carlson [facility] 13:11:53 Depressi ve disorder [id number] Completed 201810/16/2020 Major depressi ve disorder , single episode, unspecif ied;Prac zehra ID: 0001 Karolyn carlson, [facility] 13:10:23 False labor at or after 37 complete d weeks of gestatio n [id number] Completed 201210/16/2020 Other threaten ed labor, antepart um;Pract ice ID: 0001 Karolyn carlson, [facility] 13:10:38 Uterine size for dates discrepa ncy Completed 201610/16/2020 Uterine size-britni e discrepa ncy, third trimeste r;Record ed Elsewher e: No Locat ion: Guillaume jennifer [facility] S ource: EHR Product Sales Engineer amisha: N Practi ce ID: 0001 Hitesh lable Time: 10:30:00 AM Karolyn Raza [facility] 13:12:49 Complica tion related to pregnanc y Completed 201210/16/2020 Weight Gain Poor Antepart um;Recor ded Elsewher e: No [facility] S ource: EHR Product Sales Engineer amisha: N Practi ce ID: 0001 Hitesh lable Time: 09:30:00 AM Karolyn Raza [facility] 13:10:[address] Concept Completed 201810/16/2020 Anxiety; Recorded Elsewher e: No [facility] S ource: EHR Product Sales Engineer amisha: N Practi ce ID: 0001 Hitesh lable Time: 03:30:00 PM Karolyn carlson [facility] 13:12:24 Low back pain [id number] Completed 201010/16/2020 Lumbago; Recorded Elsewher e: No Locat ion: Guillaume rodriguez [facility] S ource: EHR Product Sales Engineer amisha: N Practi ce ID: 0001 Hitesh lable Time: 03:00:00 PM Karolyn Raza [facility] 13:11:32 Gestatio n period, 38 weeks [id number] Completed 201510/16/2020 38 weeks gestatio n of pregnanc y;Record ed Elsewher e: No Locat ion: Amitabuddy jennifer [facility] S ource: EHR Product Sales Engineer amisha: N Practi ce ID: 0001 Hitesh lable Time: 11:00:00 AM Karolyn Raza [facility] 13:11:16 Gestatio n period, 36 weeks [id number] Completed 201510/16/2020 36 weeks gestatio n of pregnanc y;Record ed Elsewher e: No Locat ion: Guillaume [facility] S ource: EHR Product Sales Engineer amisha: N Practi ce ID: 0001 Hitesh lable Time: 10:45:00 AM Karolyn Raza [facility] 13:11:13 Uterine size for dates discrepa ncy Completed 201410/16/2020 Uterine size-britni e discrepa ncy, second trimeste r;Record ed Elsewher e: No Locat ion: Brien jennifer [facility] S ource: EHR Product Sales Engineer amisha: N Practi ce ID: 0001 Hitesh lable Time: 08:00:00 AM Karolyn carlson [facility] 13:12:48 Sexual function painful Completed 201810/16/2020 Unspecif ied dyspareu gonzalez;Prac zehra ID: 0001 Karolyn Raza [facility] 13:12:21 Procedur e on genitour inary system Completed 201710/16/2020 Encounte r for surgical aftcr followin g surgery on the sys;Prac zehra ID: 0001 Karolyn Raza [facility] 13:12:10 Postoper ative care Completed 201710/16/2020 Encounte r for surgical aftcr followin g surgery on the sys;Prac zehra ID: 0001 Karolyn carlson, [facility] 13:11:56 Procedur e Completed 201710/16/2020 Enctr srvlnc implanta ble subderma l contrace ptive;Pr actice ID: 0001 Karolyn Raza [facility], [facility] 13:12:08 Follicul ar cyst of left ovary [id number] Completed 201710/16/2020 Follicul ar cyst of left ovary;Pr actice ID: 0001 [facility] 13:10:51 Follicul ar cyst of right ovary [id number] Completed 201710/16/2020 Follicul ar cyst of right ovary;Pr actice ID: 0001 Karolyn Raza [facility], [facility] 13:10:53 Endometr iosis of uterus [id number] Completed 201710/16/2020 Endometr iosis of uterus;P ractice ID: 0001 Karolyn Raza [facility], [facility] 13:10:33 Urinary tract infectio us disease [id number] Completed 201210/16/2020 Urinary tract infectio n, site not specifie d;Practi ce ID: 0001 Karolyn Raza [facility], [facility] 13:12:46 Cyst of ovary [id number] Completed 201710/16/2020 Unspecif ied ovarian cyst, left side;Pra ctice ID: 0001 Karolyn Raza [facility], [facility] 13:10:20 Vaginiti s and vulvovag initis Completed 201210/16/2020 Vaginiti s and vulvovag initis, unspecif ied;Prac zehra ID: 0001 Karolyn Raza [facility] 13:12:52 Inflamma tory disorder of breast [id number] Completed 201710/16/2020 Mastitis without abscess; Practice ID: 0001 Karolyn Raza [facility], [facility] 13:11:22 Maribel ry postpart um mood disturba nce [id number] Completed 201710/16/2020 Postpart um mood disturba nce;Prac zehra ID: 0001 Karolyn Raza [facility] 13:12:41 Mastitis associat ed with lactatio n [id number] Completed 201510/16/2020 Postpart um mastitis ;Recorde d Elsewher e: No Locat ion: [facility] S ource: EHR Product Sales Engineer amisha: N Greggti ce ID: 0001 Hitesh lable Time: 09:30:00 AM Karolyn Raza [facility] 13:11:33 Pregnanc y test positive [id number] Completed 201003/13/2013 Pregnanc y examinat ion or test, positive result;R ecorded Elsewher e: No Locat ion: [facility] S ource: EHR Product Sales Engineer amisha: N Practi ce ID: 0001 Hitesh lable Time: 09:45:00 AM Karolyn Raza [facility] 13:12:02 Gestatio n period, 23 weeks [id number] Completed 201410/16/2020 23 weeks gestatio n of pregnanc y;Record ed Elsewher e: No Locat ion: [facility] S ource: EHR Product Sales Engineer amisha: N Practi ce ID: 0001 Hitesh lable Time: 01:00:00 PM Karolyn carlson [facility] 13:10:57 Pregnanc y detectio n examinat ion Completed 201610/16/2020 Encounte r for pregnanc y test, result positive ;Recorde d Elsewher e: No Locat ion: [facility] S ource: EHR Product Sales Engineer amisha: N Practi ce ID: 0001 Hitesh lable Time: 09:00:00 AM Karolyn carlson [facility] 13:11:59 anatomy study Completed 201110/16/2020 [facility] ANAT[facility] SURVEY;P ractice ID: 0001 Karolyn carlson [facility] 13:10:45 Term pregnanc y delivere d [id number] Completed 201610/16/2020 Encounte r for full-ter m uncompli cated delivery ;Practic e ID: 0001 Karolyn carlson, [facility] 13:12:35 Pregnanc y test positive [id number] Completed 201110/16/2020 Positive Pregnanc y Test;Pra ctice ID: 0001 Karolyn carlson [facility] 13:12:02 Oligohyd ramnios with antenata l problem [id number] Completed 201110/16/2020 Oligohyd ramnios, antepart um;Pract ice ID: 0001 Karolyn carlson [facility] 13:11:48 Amenorrh ea [id number] Completed 201110/16/2020 AMENORRH EA;Pract ice ID: 0001 Karolyn carlson [facility] 13:10:00 Threaten ed miscarri age 76990372 Completed 201110/16/2020 Threaten ed , antepart um;Pract ice ID: 0001 Karolyn carlson [facility] 13:12:36 Candidal vulvovag initis [id number] Completed 201110/16/2020 Candidia sis of vulva and vagina;P ractice ID: 0001 Karolyn carlson [facility] 13:10:06 Gestatio n period, 37 weeks [id number] Completed 201510/16/2020 37 weeks gestatio n of pregnanc y;Record ed Elsewher e: No Locat ion: [facility] S ource: EHR Product Sales Engineer amisha: N Practi ce ID: 0001 Hitesh lable Time: 09:00:00 AM Karolyn Raza [facility] 13:11:15 Gestatio n less than 9 weeks [id number] Completed 201510/16/2020 Less than 8 weeks gestatio n of pregnanc y;Record ed Elsewher e: No Locat ion: [facility] S ource: EHR Product Sales Engineer amisha: N Practi ce ID: 0001 Hitesh lable Time: 08:45:00 AM Karolyn carlson [facility] 13:10:55 Antenata l screenin g Completed 201410/16/2020 ANTENATA L SCREENIN G NEC;Silver rded Elsewher e: No Locat ion: [facility] S ource: EHR Product Sales Engineer amisha: N Practi ce ID: 0001 Hitesh lable Time: 08:30:00 AM Karolyn Raza [facility] 13:10:01 Premenop ausal menorrha david Completed 201310/16/2020 Premenop ausal menorrha david;Silver rded Elsewher e: No Locat ion: [facility] S ource: EHR Product Sales Engineer amisha: N Practi ce ID: 0001 Hitesh lable Time: 11:00:00 AM Karolyn Raza [facility] 13:12:04 Vaginola bial hernia Completed 201510/16/2020 Other specifie d noninfla mmatory disorder s of vagina;R ecorded Elsewher e: No Locat ion: [facility] S ource: EHR Product Sales Engineer amisha: N Jacinto ce ID: 0001 Hitesh lable Time: 10:45:00 AM Karolyn Raza [facility] 13:12:54 Gestatio n period, 32 weeks [id number] Completed 201510/16/2020 32 weeks gestatio n of pregnanc y;Record ed Elsewher e: No Locat ion: [facility] S ource: EHR Product Sales Engineer amisha: N Greggti ce ID: 0001 Hitesh lable Time: 09:30:00 AM Karolyn Raza [facility] 13:11:07 Secondar y amenorrh ea [id number] Completed 201610/16/2020 Secondar y amenorrh ea;Recor ded Elsewher e: No Locat ion: [facility] S ource: EHR Product Sales Engineer amisha: N Greggti ce ID: 0001 Hitesh lable Time: 09:30:00 AM Karolyn Raza [facility] 13:12:20 Ultrason ography Completed 201410/16/2020 Antenata l screenin g for malforma tion using ultrason ics;Silver rded Elsewher e: No Locat ion: [facility] S ource: EHR Product Sales Engineer amisha: N Greggti ce ID: 0001 Hitesh lable Time: 09:15:00 AM Karolyn Raza [facility] 13:12:45 Congenit al malforma tion [id number] Completed 201410/16/2020 Antenata l screenin g for malforma tion using ultrason ics;Silver rded Elsewher e: No Locat ion: [facility] S ource: EHR Product Sales Engineer amisha: N Practi ce ID: 0001 Hitesh lable Time: 09:15:00 AM Karolyn Raza [facility] 13:10:14 Central nervous system malforma tion in fetus affectin g [facility] [id number] Completed 201110/16/2020 Central nervous system malforma tion in fetus, antepart um;Pract ice ID: 0001 Karolyn Raza [facility] 13:10:[address] Concept Completed 201510/16/2020 Encntr for general adult medical exam w/o abnormal findings ;Practic e ID: 0001 Karolyn Raza [facility] 13:12:28 Spotting per vagina in pregnanc y [id number] Completed 201510/16/2020 Spotting complica ting pregnanc y, third trimeste r;Practi ce ID: 0001 Karolyn Raza [facility] 13:12:33 Threaten ed prematur e labor - not delivere d [id number] Completed 201110/16/2020 Threaten ed prematur e labor, antepart um;Pract ice ID: 0001 Karolyn Raza [facility] 13:12:38 Female genital organ symptoms 869669137 Completed 201003/13/2013 Unspecif ied symptom associat ed with female genital organs;R ecorded Elsewher e: No Locat ion: [facility] S ource: EHR Product Sales Engineer amisha: N Practi ce ID: 0001 Hitesh lable Time: 03:00:00 PM Karolyn Raza [facility] 13:10:[address] Concept Completed 201610/16/2020 Supervis ion of other high risk pregnanc ies, second trimeste r;Record ed Elsewher e: No Locat ion: [facility] S ource: EHR Product Sales Engineer amisha: N Practi ce ID: 0001 Hitesh lable Time: 10:45:00 AM Karolyn carlson [facility] 13:12:26 Acute vaginiti s [id number] Completed 201510/16/2020 Acute vaginiti s;Practi ce ID: 0001 Karolyn carlson, [facility] 13:09:58 Gestatio n period, 34 weeks [id number] Completed 201510/16/2020 34 weeks gestatio n of pregnanc y;Record ed Elsewher e: No Locat ion: [facility] S ource: EHR Product Sales Engineer amisha: N Practi ce ID: 0001 Hitesh lable Time: 09:30:00 AM Karolyn Raza [facility] 13:11:10 Threaten ed miscarri age [id number] Completed 201003/13/2013 Threaten ed , antepart um;Recor ded Elsewher e: No Locat ion: [facility] S ource: EHR Product Sales Engineer amisha: N Practi ce ID: 0001 Hitesh lable Time: 02:45:00 PM Karolyn carlson [facility] 13:12:37 Primigra sylvester [id number] Completed 201110/16/2020 Supervis ion of normal first pregnanc y;Practi ce ID: 0001 Karolyn carlson, [facility] 13:12:06 Complica tion of pregnanc y, childbir th and/or puerperi um [id number] Completed 201610/16/2020 Oth diseases and conditio ns compl preg/chl dbrth;Pr actice ID: 0001 Karolyn carlson, [facility] 13:12:43 Gestatio n period, 25 weeks [id number] Completed 201610/16/2020 25 weeks gestatio n of pregnanc y;Practi ce ID: 0001 Karolyn Raza [facility] 13:10:59 Proteinu evie [id number] Completed 201110/16/2020 Proteinu evie;Prac zehra ID: 0001 Karolyn Raza [facility] 13:12:12 Leukorrh ea [id number] Completed 201110/16/2020 Leukorrh ea, not specifie d as infectiv e;Practi ce ID: 0001 Karolyn Raza [facility] 13:11:28 Mild hypereme sis-not delivere d [id number] Completed 201003/13/2013 Mild hypereme sis gravidar um, antepart um;Recor ded Elsewher e: No Locat ion: [facility] S ource: EHR Product Sales Engineer amisha: N Practi ce ID: 0001 Hitesh lable Time: 03:30:00 PM Karolyn Raza [facility] 13:11:37 Uses IUD (intraut erine device) contrace ption [id number] Completed 201210/16/2020 Surveill ance of intraute rine contrace ptive device;R ecorded Elsewher e: No Locat ion: [facility] S ource: EHR Product Sales Engineer amisha: N Practi ce ID: 0001 Hitesh lable Time: 01:30:00 PM Karolyn Raza [facility] 13:11:27 Uterine size for dates discrepa ncy [id number] Completed 201410/16/2020 UTERINE SIZE CHRISTINE-ANTE PAR;Silver rded Elsewher e: No Locat ion: [facility] S ource: EHR Product Sales Engineer amisha: N Practi ce ID: 0001 Hitesh lable Time: 09:15:00 AM Karolyn Raza [facility] 13:12:51 Dysuria [id number] Completed 201410/16/2020 Dysuria; Recorded Elsewher e: No Locat ion: Brien jennifer [facility] S ource: EHR Product Sales Engineer amisha: N Practi ce ID: 0001 Hitesh lable Time: 03:30:00 PM Karolyn Raza [facility], [facility] 13:10:28 Mild hypereme sis-not delivere d 925587211 Completed 201410/16/2020 Mild hypereme sis gravidar um, antepart um;Recor ded Elsewher e: No Locat ion: [facility] S ource: EHR Product Sales Engineer amisha: N Practi ce ID: 0001 Hitesh lable Time: 11:30:00 AM Karolyn Raza [facility] 13:11:37 Amenorrh ea [id number] Completed 201003/13/2013 Absence of menstrua tion;Rec orded Elsewher e: No [facility]: EHR Product Sales Engineer amisha: N Practi ce ID: 0001 Hitesh lable Time: 09:45:00 AM Karolyn Raza [facility] 13:10:00 Blood leukocyt e number above referenc e range [id number] Completed 201410/16/2020 Elevated white blood cell count, unspecif ied;Prac zehra ID: 0001 Karolyn Raza [facility], [facility] 13:11:18 Gestatio n period, 28 weeks [id number] Completed 201410/16/2020 28 weeks gestatio n of pregnanc y;Record ed Elsewher e: No Locat ion: [facility] S ource: EHR Product Sales Engineer amisha: N Practi ce ID: 0001 Hitesh lable Time: 10:56:00 AM Karolyn Raza [facility] 13:11:01 Mild hypereme sis-not delivere d [id number] Completed 201003/13/2013 Mild hypereme sis gravidar um, antepart um;Recor ded Elsewher e: No Locat ion: Guillaume rodriguez [facility] S ource: EHR Product Sales Engineer amisha: N Practi ce ID: 0001 Hitesh lable Time: 02:45:00 PM Karolyn Raza [facility], [facility] 13:11:38 Routine antenata l care Completed 201103/13/2013 Supervis ion of other normal pregnanc y;Record ed Elsewher e: No Locat ion: [facility] S ource: EHR Product Sales Engineer amisha: N Practi ce ID: 0001 Hitesh lable Time: 09:30:00 AM Karolyn Raza [facility], [facility] 13:12:17 Pregnanc y, childbir th and puerperi um finding Completed 201510/16/2020 Oth pregnanc y related conditio ns, third trimeste r;Practi ce ID: 0001 Karolyn Raza [facility], [facility] 13:10:10 Postpart um care Completed 201103/13/2013 Routine postpart um follow-u p;Record ed Elsewher e: No Locat ion: [facility] S ource: EHR Product Sales Engineer amisha: N Practi ce ID: 0001 Hitesh lable Time: 09:15:00 AM Karolyn Raza [facility] 13:11:58 Evaluati on finding Completed 201810/16/2020 Hematuri a, unspecif ied;Silver rded Elsewher e: No Locat ion: [facility] S ource: EHR Product Sales Engineer amisha: N Practi ce ID: 0001 Hitesh lable Time: 02:00:00 PM Karolyn Raza [facility], [facility] 13:10:36 anatomy study Completed 201103/13/2013 S[facility] ANATMC SURVEY;R ecorded Elsewher e: No Locat ion: Guillaume [facility] S ource: EHR Product Sales Engineer amisha: N Practi ce ID: 0001 Hitesh lable Time: 09:00:00 AM Karolyn Raza [facility] 13:10:45 Breast lump [id number] Completed 201010/16/2020 Lump or mass in breast;P ractice ID: 0001 Karolyn Raza [facility] 13:10:05 Toxic effect of venom [id number] Completed 201010/16/2020 Toxic effect of venom;Pr actice [...] Details Recorded Time 03/13/19 completed Karolyn Raza [facility] 10/16/2020 14:31:48 01/18/20 18 laparoscopic total abdominal hysterectomy and bilateral salpingo-oophore ctomy completed Siri Montesinos [facility] 05/16/2022 10:09:16 11/16/19 18 Date of Last Pap Smear completed Siri Montesinos [facility] 05/16/2022 11:48:57 02/22/19 05 laparoscopy completed Gudelia Cosme [facility] 07/07/2019 12:58:57 Imaging Results Imaging Date Name Status LastModified by Organiz ation Details LastModified Time 05/15/2021 US, breast, bilateral, complete completed [place] [id number] [facility] [address], [address], 05/27/2021 10:22:34 05/15/2021 DEXA completed [address] [facility] [address] [place] [address] [place] [address], [id number], 05/20/2021 11:56:51 11/21/2021 US, breast, bilateral, complete completed [place] [id number] [address], [address], 12/09/2021 16:21:31 Procedure Notes None recorded. Medical Equipment None Reported. Allergies Allergen ID Allergen Name Allergen Category Reaction Reaction Severity Criticality Documentation Date Start Date Code Code System Note Provider Name and Address Organization Details Recorded Time 27973 Iodine and/or iodine compound (substanc e) Not available Not available Not available Not available 02/09/2020 85403 6004 SNOMED React ion: GI probl ems; Comme nt: [facility]at [facility]; Not Available [facility] 0 14:17:51 32359 sertralin e medicatio n Not available Not available Not available 10/16/2020 69381 RxNorm Karolyn Raza [facility] 14:29:02 70972 venlafaxi ne medicatio n Not available Not available Not available 10/16/2020 79436 RxNorm Karolyn Raza [facility] 14:29:08 84068 escitalop dereje Not available Not available Not available Not available 10/16/2020 36424 8 RxNorm Karolyn Raza [facility] 14:29:19 609 acetamino phen medicatio n Not available Not available Not available 07/07/2019 161 RxNorm Gudelia Cosme null, [facility] 0 12:57:17 610 Product containin g penicilli n (product) medicatio n Not available Not available Not available 07/07/2019 81113 8001 SNOMED Gudelia Cosme [facility], [facility] 0 12:57:26 611 iodine medicatio n Not available Not available Not available 07/07/2019 5933 RxNorm Karolyn Raza [facility], [facility] 1 14:29:23 612 prochlorp erazine medicatio n Not available Not available Not available 07/07/2019 8704 RxNorm Gudelia Cosme [facility], [facility] 0 12:57:43 Medications Name Sig Start Date Stop Date Status Note LastModified by Organization Details LastModified Time sumatript an succinate 25 mg tabs 10/16 completed Not Available Not Available Not Available sertralin e hcl 50 mg tabs 10/16 completed Not Available Not Available Not Available vivelle-d ot 0.1 mg/24hr pttw 11/17 completed Not Available Not Available Not Available estradiol 0.1 mg/24hr pttw 06/08 completed Not [...] Not Available Not Available afluria quad inj 2019-20 10/16 completed Not Available Not Available Not [...] Prescrib ed Elsewher e: No Locat ion: [facility] odify By: graciela Ruthte r DateTime : 10/26/19 15 09:00:00 AM [...] Prescrib ed Elsewher e: No [facility] By: omedical Encount er DateTime : 11/30/19 12 01:25:43 PM Not Available Not Available Not Available Keflex 500 mg capsule take 1 capsule (500MG) by oral route every 6 hours 11/09 completed Prescrib ed Elsewher e: No Locat ion: [facility]illaume rodriguez [facility] odify By: lona schumacher DateTime : [...] Elsewher e: No Locat ion: [facility] odify By: smcaley Encounte r DateTime [...] Elsewher e: No Locat ion: [facility] odify By: [email or web address] Encounte r DateTime : 07/02/19 17 02:15:00 PM Not Available Not Available Not Available Diflucan 150 mg tablet take 1 tablet by oral route once 02/25 completed Prescrib ed Elsewher e: No Locat ion: [facility] odify By: [email or web address] z Encoun ter DateTime : 12/18/19 16 10:45:00 AM Not Available Not Available Not Available Tamiflu 75 mg capsule take 1 capsule (75MG) by oral route 2 times every day 03/10 completed Prescrib ed Elsewher e: No Locat ion: [facility] odify By: tgingric h Encoun ter [...] Prescrib ed Elsewher e: No Locat ion: [facility] jennifer [facility] odify By: bnfaisal Ruth ter DateTime [...] Prescrib ed Elsewher e: No Locat ion: [facility] odify By: graciela Purdy r DateTime : 09/25/19 15 10:24:00 AM Not Available Not Available Not Available Macrobid 100 mg capsule take 1 capsule by oral route every 12 hours with food 12/27 completed Prescrib ed Elsewher e: No Locat ion: [facility] jennifer [facility] odify By: cmschult yani Ruth ter DateTime : 03/30/19 19 01:56:18 PM Not Available Not Available Not Available Procardia 10 mg capsule take 1 capsule (10MG) by oral route 4 times every day 08/26 completed Prescrib ed Elsewher e: No Locat ion: [facility] odify By: omedical Encount er DateTime : 05/07/19 12 01:55:42 PM Not Available Not Available Not Available erythromy jennie 250 mg tablet take 1 tablet by oral route every 6 hours 11/24 completed Prescrib ed Elsewher e: No Locat ion: [facility] odify By: amkmarcos Rodriguez ncounter DateTime : [...] Prescrib ed Elsewher e: No Locat ion: [facility] odify By: amkuharlene cortes DateTime : 04/02/19 17 08:45:00 AM Not Available Not Available Not Available Metrogel Vaginal 0.75 % (37.5 mg/5 gram) insert 1 applicat orful by vaginal route every day at bedtime for 5 nights 02/25 completed Prescrib ed Elsewher e: No Locat ion: [facility] odify By: caprice z Faraz ter DateTime [...] Prescrib ed Elsewher e: No Locat ion: [facility] odify By: smcaley Encounte r DateTime : 12/28/19 19 01:00:00 PM Not Available Not Available Not Available amitripty line 10 mg tablet 05/16 completed Not Available Not Available Not Available Flagyl 500 mg tablet Take one tablet PO BID x 7d 05/12 completed Prescrib ed Elsewher e: No Locat ion: [facility] odify By: omedical Encount er DateTime : [...] Elsewher e: Yes Loca tion: [facility] odify By: graciela marcum DateTime : [...] Elsewher e: No Locat ion: [facility] odify By: fercho cortes DateTime : [...] Elsewher e: No Locat ion: [facility] odify By: tgingric h Encoun ter [...] Prescrib ed Elsewher e: No [facility] odify By: omedical Encount er DateTime : 12/27/19 11 01:30:00 PM Not Available Not Available Not Available doxycycli ne hyclate 100 mg tablet take 1 tablet (100MG) by oral route every day 04/07 completed Prescrib ed Elsewher e: No Locat ion: [facility] odify By: jose manuel Rodriguez ncounter DateTime : 03/13/19 14 11:00:00 AM Not Available Not Available Not Available estradiol 0.1 mg/24 hr weekly transderm al patch apply 1 patch by transder mal route every week 02/23 completed Prescrib ed Elsewher e: No Locat ion: [facility] odify By: fercho Rodriguez ncounter DateTime : 01/19/20 18 09:56:50 AM Not Available Not Available Not Available Phenergan 25 mg/mL injection solution inject 1 millilit er by intramus cular route once, may repeat in 2 hours 06/06 completed Prescrib ed Elsewher e: Yes Loca tion: [facility] odify By: graciela marcum DateTime : 05/29/19 [...] Elsewher e: No Locat ion: [facility]illaume rodrigue[facility] odify By: jose manuel cortes DateTime : 12/30/19 13 03:44:59 PM Not Available Not Available Not Available escitalop dereje 10 mg tablet take 1 tablet by oral route every day 12/27 completed Prescrib ed Elsewher e: No Locat ion: [facility] odify By: arden cortes DateTime : [...] Elsewher e: Yes Loca tion: [facility] odify By: smcchristiano marcum DateTime : 06/09/19 14 09:45:00 AM Not Available Not Available Not Available Triveen-D uo DHA 29 mg-1 mg-400 mg oral pack take 1 by Oral route once for 30 days 01/15 completed Prescrib ed Elsewher e: No Locat ion: [facility]dr[facility] odify By: arden cortes DateTime : 12/18/19 16 10:45:00 AM Not Available Not Available Not Available Nexplanon 68 mg subdermal implant 02/23 completed Prescrib ed Elsewher e: Yes Loca tion: [facility] odify By: fercho arringtonuntsenthil DateTime : 11/25/19 03:00:00 PM Not Available Not Available Not Available RECRUITMENT MANAGER-PNV-DH A 28 mg iron-1 mg-200 mg capsule take 1 capsule by oral route every day 02/23 completed Prescrib ed Elsewher e: No Locat ion: [facility]illaume rodrigue[facility] odify By: amramirez Rodriguez ncountsenthil DateTime : 11/05/19 12:30:51 PM Not Available Not Available Not Available Kapspargo Sprinkle 25 mg capsule,e xtended release take 1 capsule by oral route every day 10/16 completed Prescrib ed Elsewher e: Yes Loca tion: [facility] jennifer [facility] odify By: graciela marcum DateTime : 04/05/19 01:15:00 PM Not Available Not Available Not Available Vitals Date Recorded Body height Body mass index (BMI) Body weight Systolic blood pressure Diastolic blood pressure Provider Name and Address Organization Details Last Updated DateTime 10/16/2020 151.13 cm 26.2 kg/m2 85417.19 g 103 mm[Hg] 68 mm[Hg] [facility] 14:28:29 Date Recorded Body height Body mass index (BMI) Body weight Systolic blood pressure Diastolic blood pressure Provider Name and Address Organization Details Last Updated DateTime 11/26/2020 151.13 cm 26.2 kg/m2 68249.19 g 115 mm[Hg] 68 mm[Hg] [facility] 10:53:55 Date Recorded Body height Body mass index (BMI) Body weight Systolic blood pressure Diastolic blood pressure Provider Name and Address Organization Details Last Updated DateTime 05/02/2021 151.13 cm 26.6 kg/m2 33888.66 g 120 mm[Hg] 68 mm[Hg] Camila Denny [facility]- [address], [place], [address], [facility] 2 10:19:45 Date Recorded Body height Systolic blood pressure Diastolic blood pressure Provider Name and Address Organization Details Last Updated DateTime 11/17/2021 151.13 cm 120 mm[Hg] 68 mm[Hg] Karolyn Raza [facility] 11/17/2021 10:45:57 Date Recorded Body height Body mass index (BMI) Body weight Systolic blood pressure Diastolic blood pressure Provider Name and Address Organization Details Last Updated DateTime 05/16/2022 151.13 cm 27.6 kg/m2 59381.34 g 103 mm[Hg] 70 mm[Hg] Siri Montesinos [facility] 3 10:28:25 Social History Question Answer Notes LastModified by Organizat ion Details LastModified Time Tobacco Smoking Status Never Smoker Karolyn Raza [facility], [facility] 11/17/2021 10:46:10 Do You Have An [...] Or The Highest Degree You Have Received? AP03485-2 Information not available 11/17/2021 What Is Your [...] Anxious, Or Unable To Sleep At Night)? [id number] Information not available 10/16/2020 Do You Use Any Illicit Or Recreational Drugs? No Information not available 10/16/2020 Do You Use Sunscreen Routinely? No Information not available 11/26/2020 Have You Used IV Drugs? No Information not available 10/16/2020 Sex: Unknown Functional Status Question Answer Note LastModified by Organizat ion Details LastModified Time Do you have difficulty walking or climbing stairs? No [email or web address] Information not available 05/16/2022 Are you able to walk? YESWOREST Information not available 10/16/2020 Are you able to care for yourself? Yes [email or web address] Information not available 05/16/2022 Do you have difficulty dressing or bathing? No [email or web address] Information not available 05/16/2022 What is your [...] N Drug/Latex Allergies/Reactions Y Blood Transfusion N Dermatologic Disorders N Lung Disease N Defects or Inherited Disease N Breast [...] Code Diagnosis Note [id number] Shadi Keith MD [place] [address] [address] 07/07/2019 12:39:28 07/11/2019 16:24:26 Menopausal symptom 42232344 N95.1 This patient is a 34-year-ol d [...] minutes face-to-fa ce in a virtual visit. [id number] [facility] [address] [address] 10/16/2020 14:10:18 10/16/2020 16:58:51 Gynecologic examination 11463565 Z01.419 Take Calcium with Vitamin D 1200mg [...] non-cancer indication s.Mammo n/aSTD declined Menopausal symptom 49308 002 N95.1 Having issues with HRT.Feels she is having more break through hot flashes, issues with losing weight, and trouble sleeping.W e agreed to update labs & change her regimen.RT O x 6-8wks Finding ways to control stress will also greatly help. Adult heal th examination 902368974 Z00.00 [id number] Camila Denny [facility] [address],[facility] [place] [address] 11/26/2020 09:52:29 11/26/2020 11:22:07 Hormone replacement therapy 179231418 Z79.890 Consider addition of low dose SSRI moving forward as well. Trial of bijuva x 8wks Time spent in visit is a total of 15 mins with at least 50% of visit consisting of counseling and review of plan of care.Addit ional precaution daylin measures were taken to minimize potential exposure to the Covid-19 virus during this patient s visit, including available hand senior technical support engineer upon arrive, temperatur e check and being asked a series of screening questions. All staff wore face coverings during this encounter, as well as provided additional cleaning and sanitizing of all surfaces, including counter-to ps, pens, chairs, door handles, light switches, etc, prior to and following the patient s visit. 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 Counseled on medication R/B's, Most common side effects, & use. All questions [place]. [id number] [address] [facility] [address],[facility] [place] [address] 05/02/2021 09:36:26 05/02/2021 10:31:27 Mastodynia of bilateral breasts 8236753924 0732731 N64.4 Somewhat fibrocysti c breast tissue that are painful bilaterall y.Imaging indicated. Will schedule. Time spent in visit is a total of 15 mins with at least 50% of visit consisting of counseling and review of plan of care.Addit ional precaution daylin measures were taken to minimize potential exposure to the Covid-19 virus during this patient s visit, including available hand senior technical support engineer upon arrive, temperatur e check and being asked a series of screening questions. All staff wore face coverings during this encounter, as well as provided additional cleaning and sanitizing of all surfaces, including countertop s, pens, chairs, door handles, light switches, etc, prior to and following the patient s visit. [id number] Camila Denny [facility] [address],[facility] [place] [address] 11/17/2021 10:37:07 11/18/2021 16:18:53 Pain of left breast 8736035190 N64.4 Consider breast specialist referral if imaging is wnlUnable to tolerate evening primrose oilConside r that her HRT is also causing some of these sx's Menopausal symptom 84022 002 N95.1 Still with hot flashes/ni ght sweatsWork s nightsStre ssed home/workW e agreed to change in her HRT to see if we can gain improvemen t in these issues.Ivett re that the above can trigger these sx's RTO x 6-8wks med check Vitamin D deficiency 347 92012 E55.9 Update this value. [id number] Camila Denny , [facility] [address] [address] 05/16/2022 10:09:29 05/16/2022 10:50:46 Hormone replacement therapy 801132301 Z79.890 Doing well on patch as long as it is name brand by Milag[employer] of [employer] [facility].RIGO requestedR x sent x 1yr Gynecologi c examination 21542288 Z01.419 Take Calcium with Vitamin D 1200mg [...] UTD visits Pain of left breast 1010 245022 N64.4 F/U x 6mos to 1yr imaging sent & faxed Health Concerns Section Related Observation LastModified by Organization Detai ls LastModified Time None Recorded Concern Status LastModified by Organization Details LastModified Time None Recorded Advance Directives Directive N: Payers Encounter Date Sequence Insurance Name Policy Number Policy Burgos Covered Member ID Burgos Member ID Guarantor Name 10/16/2020 3 [place] [facility] Sangeeta Childersarbey [id number] Sangeeta Rodriguez [place] 10/16/2020 1 [facility] [id number] Sangeeta Rodriguez [place]bey [id number] Sangeeta Rodriguze [place]bey 11/26/2020 3 [place] [facility] Sangeeta Rodriguez [place]bey [id number] Sangeeta Rodriguez [place]bey 11/26/2020 1 [facility] [id number] Sangeeta Rodriguez [place]bey [id number] Sangeeta Rodriguez [place] 05/02/2021 2 [place] [facility] Sangeeta Kearbey [id number] Sangeeta Rodriguez [place] 05/02/2021 1 [place] [id number] Sangeeta Rodriguez [place]bey [id number] Sangeeta Rodriguez [place]bey 11/17/2021 1 [employer] ([place] [id number] Sangeeta Rodriguez [place] [id number] Sangeeta Rodriguez [place] 11/17/2021 2 [place] [facility] Sangeeta Kearbey [id number] Sangeeta Rodriguez [place] 05/16/2022 1 [employer] ([place] [id number] Sangeeta Rodriguez [place] [id number] Sangeeta Rodriguez [place] 05/16/2022 2 [place] [facility] Sangeeta Childersarbey [id number] Sangeeta Rodriguez [place] Notes Date Note Type [...] regular mammograms starting age 40 [facility] [address], [place], [address], [facility] 10/16/2020 14:54:13 11/26/2020 text/html Here for [...] had to have a hysterectomy. [facility] [address], [place], [address], [facility] 11/26/2020 11:20:57 05/02/2021 text/html Breast PainRepor [...] lump Camila Denny [facility] [address], [place], [address], [facility] 05/02/2021 10:22:31 11/17/2021 text/html Breast PainRepor [...] no malaise; no breast lump Camila Denny, [facility]- [address], [place], [address], [facility] 11/20/2021 14:33:35 OBGyn Episode Ob Episode Information Episode Created Date Number of Fetuses Patient Bloodtype Patient rh Status Prepregnancy Weight lbs Domestic Partner Domestic Partner Phone Father Name Secretary Status 07/10/19 20 1 DELETED Marcelino Calculation [...] Domestic Partner Domestic Partner Phone Father Name Secretary Status 07/11/19 20 1 CLOSED Fetus Data [...] Domestic Partner Domestic Partner Phone Father Name Secretary Status 07/11/19 20 1 CLOSED Fetus Data [...] Domestic Partner Domestic Partner Phone Father Name Secretary Status 07/11/19 20 1 CLOSED Fetus Data [...] Domestic Partner Domestic Partner Phone Father Name Secretary Status 07/11/19 1 CLOSED Fetus Data First [...] Domestic Partner Domestic Partner Phone Father Name Secretary Status 07/10/19 20 1 DELETED Marcelino Calculation [...] Domestic Partner Domestic Partner Phone Father Name Secretary Status 07/10/19 1 DELETED Marcelino Calculation Initial [...] Domestic Partner Domestic Partner Phone Father Name Secretary Status 07/11/19 20 1 CLOSED Fetus Data [...] Domestic Partner Domestic Partner Phone Father Name Secretary Status 07/11/19 20 1 CLOSED Fetus Data [...] Domestic Partner Domestic Partner Phone Father Name Secretary Status 05/17/19 23 1 CLOSED Fetus Data First Name Last Name Admitted to NICU Weight (g) Sex Living Outcome Pediatric Complications Fetus ID Race Codes Race Delivery Type , Spontane ous [id number] Marcelino Calculation Initial Marcelino Date Initial Exam [...]
--- OUTSIDE RECORDS SUMMARY | 2024-05-13 13:40 | XMS_ITS | Encounter Summary ---
Author Organization [facility] Address [address] 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 T MACHINE OPERATOR documented in this encounter Plan of Treatment Not on file documented as of this encounter Goals Goal Patient Goal Type Associated Problems Recent Progress Patient-Stated? Author Behavioral Health Behavioral Health On track( 024 8:24 AM AUDIT MACHINE OPERATOR) Yes Benson Schmidt PSYD Note: Patient wishes to navigate difficult decisions regarding her marriage and children successfully. documented as of this encounter Visit Diagnoses Diagnosis Anxiety Anxiety state, unspecified documented in this encounter Additional Health Concerns Assessment Noted Time PHQ-9 Depression Total Score: 0 08/30/19 21 3:00 PM CDT documented as of this encounter Care Teams Molding Technician Relationship Specialty Start Date End Date Jaquelin Nuñez APRN, TERRA [address] [address] PCP - General Advanced Practice Nurse 03/07/19 Salomón Dhillon MD [address] [place] [address] Senior Architectural Designer Cardiovascular Disease - Cardiology 06/24/21 01/30/24 Emilee Crane RN [place] Registered Nurse Cardiology 12/08/21 01/30/24 documented as of this encounter
--- OUTSIDE RECORDS SUMMARY | 2024-05-13 13:40 | XMS_ITS | Referral Summary ---
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
--- OUTSIDE RECORDS SUMMARY | 2024-05-13 13:40 | XMS_ITS | Encounter Summary ---
Author Organization [facility] Address [address] 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 No / Unsure 12/25/2021 8:50 AM CDT documented as of this encounter Miscellaneous Notes * Telephone Encounter - Shelley Otto RN - 01/19/2022 9:35 AM CST PRN medication requires review from provider Per nursing clinical judgement, provider to review and approve the medication(s) order(s) if appropriate. Requested Prescriptions Pending Prescriptions Disp Refills albuterol 108 (90 Base) MCG/ACT Aerosol Solution [Pharmacy Med Name: ALBUTEROL HFA INH (200 PUFFS)8.5GM] 8.5 g 0 Sig: INHALE 2 PUFFS BY MOUTH EVERY 4 HOURS NEEDED FOR WHEEZING OR COUGH Short Acting Inhaled Beta-Agonists Protocol Passed - 01/17/2022 11:01 AM Passed - Visit with relevant provider in past 12 months or upcoming 90 days Recent Visits Date Type Provider Dept 12/25/21 Office Visit Jaquelin Nuñez APRN, TERRA [facility] 06/04/21 Telemedicine Jaquelin Nuñez APRN, CNP [facility] 05/09/21 Office Visit Jaquelin Nuñez APRN, TERRA [facility] [place] 03/06/21 Office Visit Jaquelin Nuñez APRN, TERRA [facility] [place] 02/06/21 Telemedicine Jaquelin Nuñez APRN, TERRA [facility] [place] Showing recent visits within past 365 days and meeting all other requirements Future Appointments No visits were found meeting these conditions. 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 documented in this encounter Plan of Treatment Not on file documented as of this encounter Visit Diagnoses Diagnosis COVID-19 Dyspnea on exertion Other dyspnea and respiratory abnormality documented in this encounter Additional Health Concerns Assessment Noted Time PHQ-9 Depression Total Score: 0 08/30/19 21 3:00 PM CDT documented as of this encounter Care Teams Business Excellence Leader Relationship Specialty Start Date End Date Jaquelin Nuñez APRN, FRAME POLISHER #[address] [phone] PCP - General Advanced Practice Nurse 03/07/19 Salomón Dhillon MD #[address] [address] Director Of Clinical Trials Cardiovascular Disease - Cardiology 06/24/21 01/30/24 Emilee Crane RN [place] Registered Nurse Cardiology 12/08/21 01/30/24 documented as of this encounter
[2024-05-13 14:00] LABS: Basophils Absolute Auto 0.1 K/mm3 (0.0-0.1); Eosinophils Absolute Auto 0.3 K/mm3 (0-0.3); Eosinophils Percent Auto 4.2 % (0-4.4); Hematocrit 41.6 % (37.0-47.0); Immature Granulocyte Absolute 0.02 K/mm3 (0.00-0.031); Immature Granulocyte Percent A 0.3 % (0-0.5); Lymphocytes Percent Auto 29.4 % (18.3-44.2); Mean Corpuscular HGB Conc 33.7 g/dl (32-36); Mean Corpuscular Volume 89.3 fl (80-100); Mean Platelet Volume 9.5 fl (7.4-10.4); Monocytes Absolute Auto 0.7 K/mm3 (0.1-0.6); Monocytes Percent Auto 11.1 % (2.6-8.5); Neutrophils Absolute Auto 3.3 K/mm3 (1.3-6.7); Platelet Count Result 234 k/mm3 (150-375); Red Blood Count 4.66 M/mm3 (4.2-5.4); Red Cell Distribution Width 12.3 % (11.5-14.5); White Blood Count 6.1 K/mm3 (4.5-10.0)
--- NOTE | 2024-05-13 14:02 | ED.ABDPAIN ---
HPI - Abdominal Pain General Chief Complaint: Abdominal Pain Stated Complaint: RLQ pain x 3 days Time Seen by Provider: 05/13/24 13:46 Source: patient and family () Mode of arrival: ambulatory Limitations: no limitations History of Present Illness HPI narrative: Patient presents with RLQ x3 days and seems to be worsening. Pain is worse with standing. History of possibly passing a kidney stone x1. Also some asymptomatic UTIs. Took 800mg ibuprofen the other night. Has been using a heating pad. No diarrhea, constipation, bloody stools. LBM 05/12/24. Amenorrheic since total hysterectomy 7 years ago. Pain radiates down into proximal anterior aspect of right leg but not into groin. She has been nauseated but not vomiting. No fevers/chills. NO vaginal discharge. Slightly decreased appetite. Still passing flatus. ARCHIE BBQ 2 hours PARIMUTUEL CASHIER. No dysuria, urgency, frequency, hematuria. Patient lists her PCP (it is a name I do not recognize but she does have one). Related Data Home Medications ?Medication ?Instructions ?Recorded ?Confirmed ?Last Taken ?Type estradiol 0.1 mg/24 hr semiweekly 1 patch transdermal 2XW 03/19/21 01/10/24 Unknown History transdermal patch venlafaxine 75 mg capsule,extended 75 mg PO DAILY 03/22/23 01/10/24 Unknown History release 24 hr meclizine 25 mg tablet 25 mg PO BID PRN Dizziness 04/01/23 01/10/24 Unknown History lisdexamfetamine 30 mg capsule 30 mg PO DAILY 01/10/24 01/10/24 Unknown History (Nathan) Allergies Allergy/AdvReac Type Severity Reaction Status Date / Time vancomycin Allergy Severe REDMANS Verified 01/10/24 12:28 SYNDROME iodine Allergy Mild Hives / Verified 01/10/24 12:28 Red Face ioversol Allergy Unknown Unknown Verified 01/10/24 12:28 Penicillins Allergy Unknown Stopped Verified 01/10/24 12:28 Breathing iohexol (From contrast - CT, Allergy Itching Verified 01/10/24 12:28 X-RAY) acetaminophen AdvReac Mild STATES Verified 01/10/24 12:28 TYLENOL RAISES LIVER ENZYMES WAS TOLD NOT TO TAKE PMFSH Past Medical History Medical History (Updated 05/14/24 @ 00:00 by Background Daemon) ADHD, adult residual type Pneumonia Hypersomnia Mitral valve prolapse Heart palpitations Surgical History Surgical History H/O laparoscopy when 18 years old for ovarian cyst H/O: hysterectomy total (including salpingectomy, oopharectomy) Family History Family History Father Family history of mental disorder Depression Family history of kidney disease Family history of human immunodeficiency virus infection Mother Family history of alcoholism Social History Social History Smoking packs per day: 1.5 Smoking cigarettes per day: 30.0 Years smoked: 14 Smoking pack-years: 21.00 Smoking status: Former smoker Alcohol intake: current Substance use: never Do You Feel Safe in your Home?: Yes Lack of Transportation: No Lack of Food: Never True Current Housing: I Have Housing Concerned About Future Housing: No Difficulty Paying Gas/Electric Bills: No Difficulty Paying for Meds: No Currently Unemployed: No Education: Bachelor's Degree Difficulty w/ Childcare or Family Care: No Living arrangements: with family Additional living arrangements comments: Gender identity (if verbalized by the patient): Female Sexual Orientation (if Verbalized by the Patient): Straight or Heterosexual Spiritual care concerns: No Exam Narrative: GENERAL: Well-appearing, well-nourished, and in no acute distress. HEAD: Normocephalic, atraumatic. EYES: Non injected, non icteric ENT: Nares clear, no rhinorrhea or epistaxis. NECK: Supple. CHEST: Speaking in full sentences. No respiratory distress. HEART: Regular rate and rhythm. . ABDOMEN: Soft, nondistended. TTP in RLQ, particularly over McBurney point. Rovsing sign negative. No rigidity/guarding. Not grossly peritoneal. EXTREMITIES: Normal range of motion. No lower extremity edema. SKIN: Warm, dry, no rash. NEURO: No focal deficits. Alert and oriented x3. PSYCH: Normal mood and affect. : No CVA tenderness bilaterally Course Vital Signs Vital signs: Vital Signs Temperature 97.9 F 05/13/24 13:39 Pulse Rate 85 05/13/24 13:39 Respiratory Rate 16 05/13/24 13:39 Blood Pressure 132/78 05/13/24 13:39 Pulse Oximetry 99 05/13/24 13:39 Oxygen Delivery Room Air 05/13/24 13:39 Temperature 97.9 F 05/13/24 13:39 Pulse Rate 77 05/13/24 16:36 Respiratory Rate 14 05/13/24 16:36 Blood Pressure 105/60 05/13/24 16:36 Pulse Oximetry 100 05/13/24 16:36 Oxygen Delivery Room Air 05/13/24 13:39 MDM - Abdominal Pain MDM Narrative Medical decision making narrative: Patient presents with RLQ abdominal pain x3 days. In the emergency department they are afebrile with vital signs within normal limits. No leukocytosis. She does have TTP in RLQ with apparent localized peritonitis so even though Hilliard score is otherwise somewhat low, there is a high enough suspicion for appendicitis that will proceed with CT imaging (although w/o contrast due to allergy). Mild elevation in creatinine from previous. 1 L IV fluids ordered. Patient given morphine and ondansetron. She has microscopic hematuria. While awaiting CT interpretation, I did reassess patient at 3:05 p.m. she states the pain is tolerable as long as she is not moving and this is why she had declined the analgesic and antiemetic. In sum, This patient presents with abdominal pain or unclear etiology. A CT scan was performed to evaluate for potential causes of the abdominal pain, however, neither the clinical exam nor the CT has identified an emergent etiology for the abdominal pain. Specifically, given the laboratory studies, and unremarkable CT, I have a very low suspicion for ischemic bowel, bowel perforation, or any other life threatening disease. I have discussed with the patient the level of uncertainty with undifferentiated abdominal pain and clearly explained the need to follow-up as noted on the discharge instructions, or return to the Emergency Department immediately if the pain worsens, develops fever, persistent and uncontrolled vomiting, or for any new symptoms or concerns. I encouraged her to return if persistent/new/worsening/unmanaged symptoms as this may be a process developing but not yet evident on imaging, particularly appendicitis but that this structure was not easily visible today and w/o the surrounding changes that often coincide with appendicitis. Patient given Rx for analgesic meds and Bentyl. Differential Diagnosis Differential diagnosis: Likely abdominal pain, acute appendicitis (epiploic appendagitis; Yersinia), calculus of kidney, constipation, diverticulitis, endometriosis, pancreatitis, small bowel obstruction and other (Considered ovarian pathology like torsion or TOA however patient is status post total hysterectomy; intra-abdominal abscess, seroma, hematoma; UTI/pyelonephritis) Lab Data Attestation: I reviewed the patient's lab results. 05/13/24 13:49 05/13/24 13:49 Labs: Lab Results 05/13/24 Range/Units 13:49 WBC 6.1 (4.5-10.0) K/mm3 RBC 4.66 (4.2-5.4) M/mm3 Hgb 14.0 (12.0-15.0) g/dL Hct 41.6 (37.0-47.0) % MCV 89.3 (80-100) fl MCH 30.0 (26-34) pg MCHC 33.7 (32-36) g/dl RDW 12.3 (11.5-14.5) % Plt Count 234 (150-375) k/mm3 MPV 9.5 (7.4-10.4) fl Immature Gran % (Auto) 0.3 (0-0.5) % Neut % (Auto) 54.0 (45.5-73.1) % Lymph % (Auto) 29.4 (18.3-44.2) % [place] % (Auto) 11.1 H (2.6-8.5) % Eos % (Auto) 4.2 (0-4.4) % Baso % (Auto) 1.0 (0.2-1.2) % Lymph # (Auto) 1.80 (0.9-3.2) K/mm3 [place] # (Auto) 0.7 H (0.1-0.6) K/mm3 Eos # (Auto) 0.3 (0-0.3) K/mm3 Baso # (Auto) 0.1 (0.0-0.1) K/mm3 Abs Immat Gran (auto) 0.02 (0.00-0.031) K/mm3 Absolute Neuts (auto) 3.3 (1.3-6.7) K/mm3 Absolute Nucleated RBC 0.000 (0.0-0.012) K/mm3 Nucleated RBC % 0.0 (0.0-0.2) % Sodium 140 (137-145) mmol/L Potassium 3.9 (3.4-5.0) mmol/L Chloride 105 (98-107) mmol/L Carbon Dioxide 28 (22-30) mmol/L Anion Gap 7 (4-12) mmol/L BUN 16 (7-17) mg/dL Creatinine 1.13 H (0.7-1.0) mg/dL Estim Creat Clear Calc 50 ml/min Estimated GFR 54 L (59 - ) Glucose 83 (65-110) mg/dL Calcium 8.9 (8.4-10.2) mg/dL Total Bilirubin 0.3 (0.2-1.3) mg/dL AST 29 (14-36) U/L ALT 26 (6-35) U/L Alkaline Phosphatase 56 (38-126) U/L Total Protein 7.0 (6.3-8.2) g/dL Albumin 4.4 (3.5-5.1) g/dL Lipase 81 (23-300) U/L Urine Color Yellow (Yellow) Urine Appearance Cloudy H (Clear) Urine pH 8.0 (5.0-9.0) Ur Specific Hughes 1.020 (1.001-1.035) Urine Protein Negative (Negative) mg/dL Urine Glucose (UA) Negative (Negative) mg/dL Urine Ketones Negative (Negative) mg/dL Ur Blood (Man) Negative (Negative) Urine Nitrate Negative (Negative) Urine Bilirubin Negative (Negative) Urine Urobilinogen 1.0 (<2.0) mg/dL Leukocyte Esterase Rfl Negative (Negative) ROLANDA/UL Urine RBC 3-5 H (0-2) /hpf Urine WBC 0-5 (0-3) /hpf Ur Squamous Epith Cells Occasional (Few) /hpf Urine Bacteria None seen /hpf Urine Casts 0-2 Imaging Data Radiologist's impression: ITS Impressions Abdomen/Pelvis CT 05/13/24 15:49 IMPRESSION: No acute abdominal or pelvic finding Appendix is not clearly defined in contrast to 08/11/2021, at which time it was evident in the lower right posterior pelvic area the presacral space. However, no evidence of a dilated appendix or inflammatory changes noted in this region on the current examination. Discharge Plan Discharge Clinical Impression: Abdominal pain, RLQ, DELVIN (acute kidney injury), Microscopic hematuria Patient Disposition: Home, Self-Care Condition: Stable Instructions: Antibiotic Form, Acute Kidney Injury (DC), Hematuria (ED), Abdominal Pain (ED) Additional Instructions: As we discussed, a CT scan was performed to evaluate for potential causes of the abdominal pain, however, neither the clinical exam nor the CT has identified an emergent etiology for the abdominal pain. Specifically, given the laboratory studies, and unremarkable CT, I have a very low suspicion for appendicitis, ischemic bowel, bowel perforation, or any other life threatening disease. There is still a level of uncertainty with undifferentiated abdominal pain. Please follow-up with your PCP or return to the Emergency Department immediately if the pain worsens, develops fever, persistent and uncontrolled vomiting, or for any new symptoms or concerns. Acetaminophen/Tylenol (maximum 4000 mg per day) is safe to take with NSAIDs (ibuprofen/Motrin) for pain relief. The Bentyl may also help. You list an allergy to acetaminophen and that it raises your liver enzymes however all of them were normal today so it should be safe. Patient Language: Nepalese Prescriptions: New ibuprofen 600 mg tablet 600 mg PO TID PRN (Reason: pain) Qty: 30 0RF acetaminophen 500 mg capsule 1,000 mg PO Q6H PRN (Reason: pain) Qty: 30 0RF dicyclomine 10 mg capsule 10 mg PO BID PRN (Reason: abdominal pain) Qty: 10 0RF No Action venlafaxine 75 mg capsule,extended release 24hr 75 mg PO DAILY lisdexamfetamine [Vyvanse] 30 mg capsule 30 mg PO DAILY azithromycin 500 mg tablet 500 mg PO DAILY 5 Days Qty: 5 0RF albuterol sulfate 90 mcg/actuation HFA aerosol inhaler 2 puff inhalation QID PRN (Reason: shortness of breath or wheezing) Qty: 6.7 0RF prednisone 20 mg tablet 20 mg PO BID Qty: 10 0RF Rx Instructions: am and early pm with food codeine-guaifenesin 10-100 mg/5 mL liquid 5 ml PO Q6H Qty: 200 0RF estradiol 0.1 mg/24 hr patch semiweekly 1 patch transdermal 2XW Rx Instructions: apply 1 patch for 3 days alternating with 1 patch for 4 days each week for 3 wks per 4-wk cycle meclizine 25 mg tablet 25 mg PO BID PRN (Reason: Dizziness) metoprolol succinate 25 mg tablet extended release 24 hr See Rx Instructions .ROUTE .COMPLEX Qty: 30 5RF Dose Instruction: TAKE 1 TABLET BY MOUTH DAILY Rx Instructions: TAKE 1 TABLET BY MOUTH DAILY Follow-up/Referrals: PHYSICIAN NOT ON STAFF,NONSTAFF [Primary Care Provider] - Stand Alone Forms: Work/School Release IP Time of Disposition: 16:15
--- OUTSIDE RECORDS SUMMARY | 2024-05-13 14:03 | XMS_ITS | Encounter Summary ---
Author Organization [facility] Address [address] 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 documented as of this encounter Visit Diagnoses Diagnosis Anxiety Anxiety state, unspecified Stress reaction Other acute reactions to stress documented in this encounter Additional Health Concerns Assessment Noted Time PHQ-9 Depression Total Score: 0 08/30/19 21 3:00 PM CDT documented as of this encounter Care Teams Predatory Animal Trapper Relationship Specialty Start Date End Date Jaquelin Nuñez APRN, CNP #[address] [phone] PCP - General Advanced Practice Nurse 03/07/19 Salomón Dhillon MD #[address] [address] Social Services Aide Cardiovascular Disease - Cardiology 06/24/21 01/30/24 Emilee Crane RN [place] Registered Nurse Cardiology 12/08/21 01/30/24 documented as of this encounter
--- OUTSIDE RECORDS SUMMARY | 2024-05-13 14:03 | XMS_ITS | Encounter Summary ---
Author Organization [facility] Address [address] 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 Showing future appointments within next 90 days and meeting all other requirements GING SUPERVISOR documented in this encounter Plan of Treatment Not on file documented as of this encounter Visit Diagnoses Diagnosis COVID-19 Dyspnea on exertion Other dyspnea and respiratory abnormality documented in this encounter Additional Health Concerns Assessment Noted Time PHQ-9 Depression Total Score: 0 08/30/19 21 3:00 PM CDT documented as of this encounter Care Teams Peer Support Specialist Relationship Specialty Start Date End Date Jaquelin Nuñez APRN, SMOKEHOUSE WORKER #[address] [phone] PCP - General Advanced Practice Nurse 03/07/19 Salomón Dhillon MD #[address] [phone] Cover Maker Cardiovascular Disease - Cardiology 06/24/21 01/30/24 Emilee Crane RN [place] Registered Nurse Cardiology 12/08/21 01/30/24 documented as of this encounter
--- OUTSIDE RECORDS SUMMARY | 2024-05-13 14:03 | XMS_ITS | Referral Summary ---
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 Gender Identity Not on file Sexual Orientation [...] Treatment Not on file Insurance IDPA [employer] [facility] EMPL[employer]EE HE[employer] PLANS Address: [address] [place] [address] [facility] Member Subscriber Plan / Payer (Ef fective 2021-Present) Name:Sangeeta Mcknight Relation to Subscriber:Self Name:Sangeeta Mcknight Payer ID:[id number] ([facility]) Type:MEDICAID RISK OTHER Address: [address] [place] [address] [facility] CHOICE PLUS Member Subscriber Plan / Payer (Ef fective 2019-Present) Name:Sangeeta Mcknight Relation to Subscriber:Self Name:Sangeeta Mcknight Payer ID:[id number] ([facility]) Type:[facility] HMO/PPO Address: [address] [address] [place] [address] IDPA [facility] IDPA Care Teams Life Insurance Salesperson Relationship Specialty Start Date End Date Jaquelin Nuñez NP [address] [address] PCP - General 03/24/19
--- OUTSIDE RECORDS SUMMARY | 2024-05-13 14:03 | XMS_ITS | Clinical Summary ---
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 [place] [address] [place] [address] [facility] IDPA Care Teams Security Advisor Relationship Specialty Start Date End Date Jaquelin Nuñez NP [address] [address] PCP - General 03/24/19
--- OUTSIDE RECORDS SUMMARY | 2024-05-13 14:03 | XMS_ITS | Encounter Summary ---
Author Organization [facility] Address [address] 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 No / Unsure 12/30/2022 7:40 AM SITE MONITOR documented as of this encounter Miscellaneous Notes * Telephone Encounter - Shelley Otto RN - 01/04/2023 9:31 AM CST Name from pharmacy: VENLAFAXINE ER 37.5MG CAPSULES Will file in chart as: venlafaxine (EFFEXOR-XR) 37.5 MG CAPSULE SR 24 HR The original prescription was reordered on 12/10/2022 by Jaquelin Nuñez APRN, CNP. MONITOR documented in this encounter Plan of Treatment Not on file documented as of this encounter Goals Goal Patient Goal Type Associated Problems Recent Progress Patient-Stated? Author Behavioral Health Behavioral Health On track( 024 8:24 AM SITE MONITOR) Yes Benson Schmidt PSYD Note: Patient wishes to navigate difficult decisions regarding her marriage and children successfully. documented as of this encounter Visit Diagnoses Diagnosis Anxiety Anxiety state, unspecified documented in this encounter Additional Health Concerns Assessment Noted Time PHQ-9 Depression Total Score: 0 08/30/19 21 3:00 PM CDT documented as of this encounter Care Teams Restorative Coordinator Relationship Specialty Start Date End Date Jaquelin Nuñez APRN, TERRA #[address] [phone] PCP - General Advanced Practice Nurse 03/07/19 Salomón Dhillon MD #[address] [place] [address] Information Technology Auditor Cardiovascular Disease - Cardiology 06/24/21 01/30/24 Emilee Crane RN [place] Registered Nurse Cardiology 12/08/21 01/30/24 documented as of this encounter
--- OUTSIDE RECORDS SUMMARY | 2024-05-13 14:03 | XMS_ITS ---
Author Organization [facility] Address [address] [place] [address] Phone Care Team Providers Care Beer Cooler Name Role Phone Jaquelin Nuñez APRN, CNP Primary Care Provid er [facility] Status:Enrolled (Active) Start date:03/22/2024 Enrollment date:03/22/2024 Related social drivers of health:Intimate Partner Violence, Social Connections, Tobacco Use, Stress, Physical Activity Continued Care and Services Coordination
--- OUTSIDE RECORDS SUMMARY | 2024-05-13 14:03 | XMS_ITS | Clinical Summary ---
Author Organization [facility] Address [address] [place] [address] Care Team Providers Care Youth Probation Officer Name Role Phone Unavailable Primary Care Provider [...]
--- OUTSIDE RECORDS SUMMARY | 2024-05-13 14:03 | XMS_ITS | Clinical Summary ---
Author Organization [facility] Address [address] [place] [address] Phone Care Team Providers Care Metal Bed Assembler Name Role Phone Jaquelin Nuñez APRN, CNP [...] Description 02/14/2024 Refill [facility] [address] [place] [address] Jaquelin Nuñez APRN, TECHNICAL BUYER Medication Refill from Last 3 Months Immunizations Immunization Administration Dates Next Due Covid-19, Mrna, Lnp-s, Pf, 3 0 Mcg/0.3 Ml Dose ([facility]) 09/09/2020,08/06/2020 HEP B/HIB Combined Vaccine 07/07/2014,11/16/2013 ,10/17/2013 [...] = 0.6 oz pur e alcohol) Rarely [facility] Utilities Answer Date Recorded In [...] Never 09/12/2023 How often do you attend [facility] ch or rastafarian services? 1 to 4 times per year 09/12/2023 Do you belong to any clubs o r organizations such as rastafarian groups, unions, fraternal or athletic groups, or [...] Total Score - Questions 1-9 0 09/2020 [facility] [place] of Occupat ional Health - Occupational Stress [...] place to sleep or slept in a residential (including now)? No 03/25/2023 Housing Stability Vital Sign Answer Cosme e Recorded In the last 12 months, was t here a time when you were not able to pay the mortgage or rent on time? No 09/12/2023 In the past 12 months, how m any times have you moved where you were living? 0 09/12/2023 At any time in the past 12 m [address] [place], were you homeless or living in a residential (including now)? 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 [place] [address] [address] [place] [address] [facility] Care Teams Metal Bed Assembler Relationship Specialty Start Date End Date Jaquelin Nuñez APRN, CNP [address] [id number] PCP - General Advanced Practice Nurse 03/07/19
[2024-05-13 14:06] LABS: Add Urine Microscopic? YES; Appearance Urine Cloudy (Clear); Bacteria Urine None Seen /hpf; Bilirubin Urine Negative (Negative); Blood Urine Negative (Negative); Color Urine Yellow (Yellow); Glucose Urine UA Negative (Negative); Ketones Urine Negative (Negative); Leukocyte Esterase Ur Negative LEU/UL (Negative); Nitrate Urine Negative (Negative); Non Pathogenic Casts 0-2; Protein Urine Negative (Negative); Squamous Epithelial Cell Urine Occasional /hpf (Few); WBC Urine 0-5 /hpf (0-3)
[2024-05-13 14:13] LABS: Alanine Aminotransferase 26 U/L (6-35); Albumin Level 4.4 g/dL (3.5-5.1); Alkaline Phosphatase 56 U/L (38-126); Anion Gap 7 mmol/L (4-12); Aspartate Amino Transferase 29 U/L (14-36); Bilirubin,Total 0.3 mg/dL (0.2-1.3); Blood Urea Nitrogen 16 mg/dL (7-17); Calcium 8.9 mg/dL (8.4-10.2); Carbon Dioxide 28 mmol/L (22-30); Chloride 105 mmol/L (98-107); Estimated CRCL calculation 50 ml/min; Estimated Glomerular Filt Rate 54; Glucose 83 mg/dL (65-110); Lipase 81 U/L (23-300); Potassium 3.9 mmol/L (3.4-5.0); Sodium 140 mmol/L (137-145)
[2024-05-13] MEDS: SODIUM CHLORIDE 0.9% IV 1,000 ML 999 ML IV CONT (14:21)
[2024-05-13 14:34] VITALS: BP 116/52
[2024-05-13 15:00] VITALS: BP 105/50; PULSE 83; O2SAT 100
[2024-05-13 15:30] VITALS: BP 107/55; PULSE 81; O2SAT 100
[2024-05-13 16:00] VITALS: PULSE 80; RESP 16; O2SAT 100
[2024-05-13] MEDS: DICYCLOMINE HCL 10 MG CAPSULE PO (16:15)
[2024-05-13 16:36] VITALS: BP 105/60; PULSE 77; RESP 14; O2SAT 100
== END 2024-05-13 16:35 | disposition home or self-care (01) ==
PROVIDERS: Emergency Medicine; Emergency Provider Student in an Organized Health Care Education/Training Program
DX: N17.9 Acute kidney failure, unspecified (principal); R31.29 Other microscopic hematuria; R10.31 Right lower quadrant pain; I34.1 Nonrheumatic mitral (valve) prolapse; F90.8 Attention-deficit hyperactivity disorder, other type; Z87.01 Personal history of pneumonia (recurrent); Z87.891 Personal history of nicotine dependence; Z90.710 Acquired absence of both cervix and uterus; Z90.79 Acquired absence of other genital organ(s); Z79.899 Other long term (current) drug therapy
CPT/HCPCS: 36415; 74176; 80053; 81001; 83690; 85025; 96360; 99284; A9270; J7030